=== PATIENT | male | born 1965 | race Caucasian/White ===

== ENCOUNTER 2020-11-21 09:20 | Outpatient (REF) | payer MEDICAID, SELFPAY ==
--- NOTE | ~2020-11-21 | CT_ITS ---
EXAMINATION: CT CHEST WITHOUT CONTRAST CLINICAL INFORMATION: Smoking history. Follow-up pulmonary nodules. COMPARISON: Previous chest CT September 2018 TECHNIQUE: Multidetector volumetric CT imaging of the chest was done. Axial MIP volume rendering provided. Sagittal and coronal reformatted images were obtained. This CT examination was performed using dose optimization techniques as appropriate, variously including the following: *Automated exposure control *Adjustment of mA and/or kV according to patient size (this includes techniques or standardized protocols for targeted exams where dose is matched to indication/reason for exam; i.e. extremities or head) *Use of iterative reconstruction technique DLP: 175 mGy-cm FINDINGS: LUNGS: The small bilateral pulmonary nodules are stable. Largest pulmonary nodule is a 5 mm noncalcified left lower lobe nodule axial image 397 series 7. No new pulmonary nodule is seen. There is linear scarring or subsegmental atelectasis of the right lung base. The lungs are otherwise clear. No endobronchial or endotracheal lesion is seen. MEDIASTINUM: There are small calcified left hilar lymph nodes. There are small noncalcified mediastinal lymph nodes. These are unchanged. No enlarged lymph nodes are seen. There is a minimal coronary artery calcification. The mediastinum is otherwise normal. PLEURA: There is no pleural effusion. No pleural mass or thickening. AXILLA: No lymphadenopathy. UPPER ABDOMEN: There is a small calcification in the right lobe of the liver unchanged from previous exam probably related to old granulomatous disease. Images through the upper abdomen are otherwise unremarkable. OSSEOUS STRUCTURES: There are degenerative changes of the spine. CT/CT chest wo con IMPRESSION: Stable small calcified and noncalcified pulmonary nodules probably related to old granulomatous disease.
== END 2020-11-21 09:21 | disposition home or self-care (01) ==
LOC: HO.CT 09:20
PROVIDERS: PCP Registered Nurse; Visit Provider Registered Nurse
DX: R91.1 Solitary pulmonary nodule (principal); F17.210 Nicotine dependence, cigarettes, uncomplicated
CPT/HCPCS: 71250

== ENCOUNTER → 2021-05-16 10:03 | Outpatient (BNVA) | payer MEDICAID, SELFPAY | PROVIDERS: PCP Registered Nurse; Visit Provider Internal Medicine Pulmonary Disease | DX: R91.8 Other nonspecific abnormal finding of lung field (principal); F17.210 Nicotine dependence, cigarettes, uncomplicated | CPT/HCPCS: 99212 ==

== ENCOUNTER 2021-05-31 12:57 | Outpatient (REF) | payer MEDICAID, SELFPAY ==
--- NOTE | ~2021-05-31 | US_ITS ---
EXAMINATION: US RETROPERITONEAL LIMITED (RENAL ONLY) CLINICAL INFORMATION: Cyst of kidney. COMPARISON: Ultrasound kidneys and bladder 03/26/2019. TECHNIQUE: Real-time imaging of the kidneys. FINDINGS: RIGHT KIDNEY: 14.1 x 5.2 x 5.9 cm (SAG x AP x TRV). The kidney is normal in size, contour, and echogenicity. Renal cortical thickness is normal. There are 2 small right cysts measuring 6 x 5 x 5 mm in the upper pole and 4 x 4 by 3 mm in the midpole. These were not appreciated on prior ultrasound from 2019. No renal calculi or hydronephrosis. LEFT KIDNEY: 13.8 x 6.3 x 6.0 cm (SAG x AP x TRV). The kidney is normal in size, contour, and echogenicity. Renal cortical thickness is normal. There is a 1 x 1 x 0.7 cm cyst in the upper pole that does not appear changed. No renal calculi or hydronephrosis. US/US renal BI IMPRESSION: Small bilateral renal cysts. No imaging follow-up is indicated.
== END 2021-05-31 12:58 | disposition home or self-care (01) ==
LOC: HO.HMGCX 12:57
PROVIDERS: Visit Provider Internal Medicine Geriatric Medicine
DX: N28.1 Cyst of kidney, acquired (principal)
CPT/HCPCS: 76775

== ENCOUNTER 2022-05-21 10:55 | Outpatient (REF) | payer MEDICAID, SELFPAY ==
--- NOTE | 2022-05-21 13:31 | PFT_ITS ---
Forced vital capacity 86%, FEV1 84%. FEV1/FVC ratio is 77. [id number] 71% and MVV 86%. Post bronchodilator therapy, there is a slight improvement in [id number]. Total lung capacity 95%. Residual volume 116%. Diffusion capacity 69%. CONCLUSION: Grossly normal pulmonary function test, but there is possibility of a minimal small airway obstructive disorder with improvement after bronchodilator therapy. This requires clinical correlation. MD JAM Howard/ZAIRE / [id number]
== END 2022-05-21 10:56 | disposition home or self-care (01) ==
LOC: HO.RESP 10:55
PROVIDERS: PCP Internal Medicine Geriatric Medicine; Visit Provider Internal Medicine Pulmonary Disease
DX: F17.200 Nicotine dependence, unspecified, uncomplicated (principal)
CPT/HCPCS: 94060; 94727; 94729

== ENCOUNTER → 2022-05-28 11:40 | Outpatient (BNVA) | payer MEDICAID, SELFPAY | PROVIDERS: PCP Internal Medicine Geriatric Medicine; Visit Provider Internal Medicine Pulmonary Disease | DX: J43.9 Emphysema, unspecified (principal); F17.200 Nicotine dependence, unspecified, uncomplicated | CPT/HCPCS: 99212 ==

== ENCOUNTER 2023-03-21 08:18 | Outpatient (REF) | payer MEDICAID, SELFPAY ==
[2023-03-21 11:17] LABS: MANUAL DIFF FLAG NO
[2023-03-21 11:46] LABS: Basophils Absolute Auto 0.1 X10*3/uL (0.0-0.2); Basophils Percent Auto 0.7 % (0-2); Eosinophils Absolute Auto 0.4 X10*3/uL (0.0-0.4); Eosinophils Percent Auto 5.9 % (0-4); Hematocrit 41.3 % (42.0-52.0); Hemoglobin 14.2 g/dl (14.0-18.0); Imm Gran Abs Auto 0.03 X10*3/uL (0.00-0.03); Imm Gran Pct Auto 0.4 % (0.0-0.4); Lymphocytes Absolute Auto 2.1 X10*3/uL (1.2-4.9); Lymphocytes Percent Auto 28.1 % (20-40); Mean Corpuscular HGB Conc 34.4 g/dl (31.0-36.0); Mean Corpuscular Hemoglobin 30.5 pg (27.0-33.0); Mean Corpuscular Volume 88.6 fL (80.0-98.0); Mean Platelet Volume 9.9 fL (9.4-12.4); Monocytes Absolute Auto 0.4 X10*3/uL (0.1-1.2); Monocytes Percent Auto 5.3 % (2-11); Neutrophils Absolute Auto 4.4 x10*3/uL (2.0-8.3); Neutrophils Percent Auto 59.6 % (45-73); Platelet Count 310 X10*3/uL (160-400); Red Blood Count 4.66 X10*6/uL (4.60-5.80); White Blood Count 7.3 X10*3/uL (4.8-10.8)
[2023-03-21 12:02] LABS: Alanine Aminotransferase 29 U/L (0-40); Albumin Level 4.7 g/dL (3.5-5.0); Alkaline Phosphatase 64 U/L (39-117); Anion Gap 11 (12-20); Aspartate Amino Transferase 21 U/L (5-37); Bilirubin Total 0.5 mg/dL (0.0-1.0); Blood Urea Nitrogen 13 mg/dL (9-16); Calcium 10.2 mg/dL (8.4-10.2); Carbon Dioxide 29 mmol/L (22-29); Chloride 105 mmol/L (96-108); Cholesterol 110 mg/dL (<200); Estimated Glomerular Filt Rate > 60; Glucose Random 114 mg/dL (60-115); HDL Cholesterol 32 mg/dL (>40); LDL Cholesterol Calculated 57 mg/dL (<100); Potassium 4.6 mmol/L (3.3-5.1); Sodium 140 mmol/L (135-145); Total Protein 7.8 g/dL (6.5-8.0); Triglycerides 107 mg/dL (<150)
[2023-03-21 13:08] LABS: Creatinine Urine 116.54 mg/dL
== END 2023-03-21 08:19 | disposition home or self-care (01) ==
LOC: HO.HHCL 08:18
PROVIDERS: Visit Provider Internal Medicine Geriatric Medicine
DX: Z00.00 Encounter for general adult medical examination without abnormal findings (principal); E11.9 Type 2 diabetes mellitus without complications; Z79.899 Other long term (current) drug therapy
CPT/HCPCS: 36415; 80053; 80061; 82043; 85025

== ENCOUNTER 2023-04-16 10:48 | Outpatient (AMB) | payer MEDICAID, SELFPAY ==
--- NOTE | 2023-04-16 11:22 | MHC.OFFVIS ---
Intake Vital Signs 04/16/23 11:24 Height 6 ft 2 in Weight 189 lb 9.561 oz BMI 24.3 BP 132/67 Blood Pressure Location Lt brachial Position Sitting Pulse 64 Intake Visit Reasons: [place] screening Intake Note: Francisco presents in the office as a colonoscopy screening. CC: He states that he has never had a colonoscopy and is not having any concerns. Maternal Grandfather had HX of Colon cancer. Allergies No Known Allergies Allergy (Verified 04/16/23 11:24) HPI [place] screening HPI Details 58 year old? male with past medical history of diabetes, hypertension, hyperlipidemia, nicotine dependence is here today for pre colonoscopy screening.? Patient was sent to us by his PCP.? This is his first colonoscopy screening.? Patient denies any gastrointestinal symptoms in the past or at present.? However patient does report that he does not empty his bowels completely and is constipated. Postprandial abdominal bloating occasionally. Denies any personal or family history of gastrointestinal disease. Maternal grandfather was diagnosed with colon cancer. Patient's sisters had colonoscopy so and were diagnosed with polyps.? Denies history of difficulty with sedation or anesthesia in the past.? Negative for history of sleep apnea.? Denies any history of cardiac, renal, pulmonary, or hepatic disease.?? No history of infectious? diseases like hepatitis A, B, C, HIV or tuberculosis.? Patient is on low-dose aspirin [facility] Medical History DM2 (diabetes mellitus, type 2) HLD (hyperlipidemia) HTN (hypertension) Nicotine dependence, cigarettes, uncomplicated Family History (Updated 04/16/23 @ 11:25 by DUSTY Romero) Maternal Grandfather Colon cancer Review of Systems Const Denies weight gain and Denies weight loss ENT Reports no additional complaints, Denies dysphagia and Denies odynophagia Card Reports no additional complaints Resp Reports no additional complaints GI Denies abdominal pain, Denies belching, Denies melena, Reports bloating, Denies change in bowel habits, Reports constipation, Denies dysphagia, Denies excessive flatus, Denies dyspepsia, Denies heartburn, Denies diarrhea, Denies loose stools, Denies nausea, Denies odynophagia and Denies vomiting Reports no additional complaints Musc Reports no additional complaints Neuro Reports no additional complaints Psych Reports no additional complaints Endo Reports no additional complaints Physical Exam Vital Signs: Last Vital Signs Pulse 64 04/16/23 11:24 BP 132/67 04/16/23 11:24 BMI result Body Mass Index 24.3 Const General: healthy appearing, no acute distress and well developed Nutritional Appearance: well nourished Orientation/consciousness: patient oriented x3 HEENT Head: Yes normal to inspection, Yes normocephalic and Yes atraumatic Face and sinus: Yes normal facial exam Mouth: Normal oral and palatal mucosa present Throat: Yes posterior oropharynx normal, Yes tonsils normal and Yes uvula midline Eyes General: appearance normal, both eyes and all related structures Neck Neck: Yes normal visual inspection, Yes full ROM and Yes trachea midline Thyroid: Thyroid normal Resp Effort & Inspection: normal respiratory effort, able to speak in complete sentences, no tracheal deviation and symmetric chest movement Auscultation: clear to auscultation bilaterally Cardio Rate: regular rate Heart sounds: S1 normal heart sound present and S2 normal heart sound present GI Inspection: Yes normal to inspection and No distended Palpation (GI): Soft to palpation, not firm, nontender and No hepatosplenomegaly present Auscultation: normal bowel sounds General: Yes no CVA tenderness Back/Spine/Pelvis Back: no CVA tenderness Skin General skin exam: elasticity normal, turgor normal and dry skin Neuro General: patient oriented x3 Psych Appearance: grossly normal Mental Status: mental status grossly normal Assessment & Plan Assessment & Plan (1) Constipation: Code(s): K59.00 - Constipation, unspecified Qualifiers: Constipation type: slow transit constipation Qualified Code(s): K59.01 - Slow transit constipation Plan: Patient was encouraged to increase fluid intake and activity to promote better bowel motility. Patient can start taking MiraLax daily (2) Screen for colon cancer: Code(s): Z12.11 - Encounter for screening for malignant neoplasm of colon Plan: Patient denies any GI, cardiac or respiratory symptoms.? Reports occasional constipation and abdominal bloating. Will start patient on MiraLax. Denies any issues with anesthesia in the past.? Denies any history of sleep apnea.? No history infectious diseases in the past or present.? Patient is on low-dose aspirin..? No family or personal history of colon cancer or polyps.? Patient denies melena, hematochezia, unintentional weight loss or ribbon like stools.? I will see patient in 5 weeks to rediscuss colonoscopy. Patient is agreeable to plan of care and verbalizes understanding of instructions. He was given the opportunity to ask questions and all questions answered. Thank you for allowing me to participate in his care Medications: New polyethylene glycol 3350 (Miralax) 17 grams PO DAILY 510 grams 2RF Coding Level of Care Code New Pt Level 3 (79938) Diagnoses Slow transit constipation K59.01 Constipation type: slow transit constipation Screen for colon cancer Z12.11 Time Spent (min) 40 Comment 30 minutes spent with patient and additional 10 minutes spent reviewing his records
[2023-04-16 11:24] VITALS: BP 132/67; PULSE 64; BMI 24.3
== END 2023-04-16 11:49 | disposition home or self-care (01) ==
PROVIDERS: PCP Internal Medicine Geriatric Medicine; Visit Provider Nurse Practitioner Family
DX: K59.01 Slow transit constipation (principal); Z12.11 Encounter for screening for malignant neoplasm of colon
CPT/HCPCS: 99203

== ENCOUNTER → 2023-04-16 10:48 | Outpatient (BNVA) | payer MEDICAID, SELFPAY | PROVIDERS: PCP Internal Medicine Geriatric Medicine; Visit Provider Nurse Practitioner Family | DX: Z12.11 Encounter for screening for malignant neoplasm of colon (principal); K59.01 Slow transit constipation | CPT/HCPCS: 99212 ==

== ENCOUNTER 2023-05-23 11:32 | Outpatient (AMB) | payer MEDICAID, SELFPAY ==
[2023-05-23 11:43] VITALS: BP 122/67; PULSE 74; O2SAT 97; BMI 28.4
--- NOTE | 2023-05-23 11:43 | A.OFFVIS_ITS ---
Intake Vital Signs 05/23/23 11:43 Height 6 ft 2 in Weight 221 lb 9.033 oz BMI 28.4 BP 122/67 Blood Pressure Location Rt brachial Position Sitting Pulse 74 Pulse Source Doppler Pulse Oximetry (%) 97 Oxygen Delivery Method Room Air Intake Visit Reasons: pulm nodule Lockstitcher Required: Yes Lockstitcher Name: Nelsy Hauser Chel Accompanied by: Daughter Allergies No Known Allergies Allergy (Verified 05/23/23 11:45) HPI pulm nodule HPI Details 58-year-old gentleman, active 10 pack-ye ar smoker, previously followed for pulmonary nodules 4 mm and under noted on CT scan in June 2019. Patient denies any family history of lung cancer other pulmonary diseases.? He has had his follow-up CT chest that demonstrated 2 years stability of his underlying pulmonary nodules. Today patient complains of unrestful sleep, gasping for air, daytime somnolence, lower lobe NG. He is also concerned about recurrent chronic sinusitis. Otherwise, he denies pulmonary related concerns or complaints. [facility] Medical History DM2 (diabetes mellitus, type 2) HLD (hyperlipidemia) HTN (hypertension) Nicotine dependence, cigarettes, uncomplicated Family History (Updated 04/16/23 @ 11:25 by DUSTY Romero) Maternal Grandfather Colon cancer Social History (Updated 05/23/23 @ 11:46 by DUSTY Tracy) Patient Tobacco Use Status: Current someday Tobacco user Tobacco use type: Cigarette Cigarette Packs Per Day: 1 Years Smoked: 40+ Review of Systems Const Reports daytime sleepiness, Denies excessive sweating, Denies fatigue, Denies fever(s), Reports lethargy, Denies malaise, Denies night sweats, Reports snoring and Denies weight loss Eyes Denies blurry vision and Denies itchy eyes ENT Reports nasal congestion, Reports post nasal drip, Denies sinus pain, Denies sinus pressure and Denies other ( Thrush) Card Denies chest pain, Denies pedal edema, Denies dyspnea, Denies orthopnea and Denies paroxysmal nocturnal dyspnea Resp Denies cough, Denies hemoptysis, Denies excessive phlegm production, Denies dyspnea, Reports snoring and Denies wheezing GI Denies abdominal pain and Denies heartburn Musc Denies myalgias, Denies arthralgias and Denies joint swelling Skin/Breast Denies rash Neuro Denies memory loss and Denies seizure-like activity Psych Denies abnormal sleep pattern, Denies anxiety and Denies memory loss Endo Denies excessive sweating, Denies fatigue and Denies heat intolerance Domingo/Lymph Denies easy bruising Aller/Immun Denies itchy eyes, Denies seasonal rhinorrhea and Denies wheezing Physical Exam Vital Signs: Last Vital Signs Pulse 74 05/23/23 11:43 BP 122/67 05/23/23 11:43 Pulse Ox 97 05/23/23 11:43 Oxygen Delivery Method Room Air 05/23/23 11:43 BMI result Body Mass Index 28.4 Const General: no acute distress and alert Nutritional Appearance: not obese Orientation/consciousness: Other orientation findings ( oriented) HEENT Head: Yes atraumatic Eyes General: appearance normal, both eyes and all related structures Sclerae: sclerae normal EOM: EOMs intact bilaterally Neck Neck: Yes supple Lymphatic: no lymphadenopathy noted Resp Effort & Inspection: normal respiratory effort and no use of accessory muscles Auscultation: clear to auscultation bilaterally Cardio Rate: regular rate Rhythm: regular rhythm Heart sounds: no gallops, no murmurs and no rubs Skin General skin exam: other ( warm) Extrem General: No clubbing, No cyanosis and No edema Assessment & Plan Assessment & Plan (1) Emphysema of lung: Code(s): J43.9 - Emphysema, unspecified Plan: Essentially asymptomatic. Continue to monitor clinically. (2) SHARMAINE (obstructive sleep apnea): Code(s): G47.33 - Obstructive sleep apnea (adult) (pediatric) Plan: Unrestful sleep, daytime somnolence, observed waking up gasping for air. [place] Sleepiness Scale score of 15. Will obtain home sleep study. (3) Chronic sinusitis: Code(s): J32.9 - Chronic sinusitis, unspecified Plan: Appears to have deviated septum with recurrent chronic sinusitis. Will refer to ENT. (4) Nicotine dependence, cigarettes, uncomplicated: Comment: (Current smoker, onset 13yo, 1-2ppd x 44yrs, 50PYH ) Code(s): F17.210 - Nicotine dependence, cigarettes, uncomplicated Plan: Continue with lung cancer screening yearly. Orders: Orders RT home sleep study Today G47.33 - Obstructive sleep apnea (adult) (pediatric) Referrals Ear/Nose/Throat Referral J32.9 - Chronic sinusitis, unspecified Coding Level of Care Code Est Pt Level 4 (43923) Diagnoses Emphysema of lung J43.9 SHARMAINE (obstructive sleep apnea) G47.33 Chronic sinusitis J32.9 Nicotine dependence, cigarettes, uncomplicated F17.210
== END 2023-05-23 11:59 | disposition home or self-care (01) ==
PROVIDERS: PCP Internal Medicine Geriatric Medicine; Visit Provider Internal Medicine Pulmonary Disease
DX: J43.9 Emphysema, unspecified (principal); G47.33 Obstructive sleep apnea (adult) (pediatric); J32.9 Chronic sinusitis, unspecified; F17.210 Nicotine dependence, cigarettes, uncomplicated
CPT/HCPCS: 99214

== ENCOUNTER → 2023-05-23 11:32 | Outpatient (BNVA) | payer MEDICAID, SELFPAY | PROVIDERS: PCP Internal Medicine Geriatric Medicine; Visit Provider Internal Medicine Pulmonary Disease | DX: J43.9 Emphysema, unspecified (principal); J32.9 Chronic sinusitis, unspecified; G47.33 Obstructive sleep apnea (adult) (pediatric); F17.210 Nicotine dependence, cigarettes, uncomplicated | CPT/HCPCS: 99212 ==

== ENCOUNTER 2023-06-12 09:09 | Outpatient (AMB) | payer MEDICAID, SELFPAY ==
--- NOTE | 2023-06-12 09:19 | A.OFFVIS_ITS ---
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 Patient can start taking MiraLax daily Screen for colon cancer Patient denies any GI, cardiac or respiratory symptoms.? Reports occasional constipation and abdominal bloating. Will start patient on MiraLax. Denies any issues with anesthesia in the past.? Denies any history of sleep apnea.? No history infectious diseases in the past or present.? Patient is on low-dose aspirin.? Patient denies melena, hematochezia, unintentional weight loss or ribbon like stools.? I will see patient in 5 weeks to rediscuss colonoscopy. Patient is agreeable to plan of care and verbalizes understanding of shital borrero. He was given the opportunity to ask questions and all questions answered. TODAY'S VISIT Patient is here today for follow-up and to go over colonoscopy. Patient reports that he has been doing better now that he is moving his bowels without any issues. Seen restaurant assistant and is going to have sleep apnea studies on July 09. Patient denies any respiratory or cardiac symptoms. Patient reports to be feeling well. Denies any infectious diseases in the past or present. Patient denies melena, hematochezia, unintentional weight loss or ribbon like stools. Patient denies any dyspepsia, dysphagia or odynophagia. Family history of colorectal cancer, maternal grandmother diagnosed with colorectal cancer. Sister had polyps, unsure what kind.? [facility] History DM2 (diabetes mellitus, type 2) HLD (hyperlipidemia) HTN (hypertension) Nicotine dependence, cigarettes, uncomplicated Family History Maternal Grandfather Colon cancer Social History Patient Tobacco Use Status: Current someday Tobacco user Tobacco use type: Cigarette Cigarette Packs Per Day: 1 Years Smoked: 40+ Review of Systems Const Denies weight gain and Denies weight loss ENT Reports no additional complaints, Denies dysphagia and Denies odynophagia Card Reports no additional complaints Resp Reports no additional complaints GI Denies abdominal pain, Denies belching, Denies melena, Denies bloating, Denies change in bowel habits, Denies dysphagia, Denies excessive flatus, Denies dyspepsia, Denies heartburn, Denies diarrhea, Denies loose stools, Denies nausea, Denies odynophagia and Denies vomiting Reports no additional complaints Musc Reports no additional complaints Neuro Reports no additional complaints Psych Reports no additional complaints Endo Reports no additional complaints Physical Exam Vital Signs: Last Vital Signs Pulse 83 06/12/23 09:21 BP 148/79 H 06/12/23 09:21 BMI result Body Mass Index 28.5 Const General: healthy appearing, no acute distress and well developed Nutritional Appearance: well nourished Orientation/consciousness: patient oriented x3 HEENT Head: Yes normal to inspection, Yes normocephalic and Yes atraumatic Face and sinus: Yes normal facial exam Mouth: Normal oral and palatal mucosa present Throat: Yes posterior oropharynx normal, Yes tonsils normal and Yes uvula midline Eyes General: appearance normal, both eyes and all related structures Neck Neck: Yes normal visual inspection, Yes full ROM and Yes trachea midline Thyroid: Thyroid normal Resp Effort & Inspection: normal respiratory effort, able to speak in complete sentences, no tracheal deviation and symmetric chest movement Auscultation: clear to auscultation bilaterally Cardio Rate: regular rate Heart sounds: S1 normal heart sound present and S2 normal heart sound present GI Inspection: Yes normal to inspection and No distended Palpation (GI): Soft to palpation, not firm, nontender and No hepatosplenomegaly present Auscultation: normal bowel sounds General: Yes no CVA tenderness Back/Spine/Pelvis Back: no CVA tenderness Skin General skin exam: elasticity normal, turgor normal and dry skin Neuro General: patient oriented x3 Psych Appearance: grossly normal Mental Status: mental status grossly normal Assessment & Plan Assessment & Plan (1) Constipation: Code(s): K59.00 - Constipation, unspecified Qualifiers: Constipation type: slow transit constipation Qualified Code(s): K59.01 - Slow transit constipation (2) Screen for colon cancer: Code(s): Z12.11 - Encounter for screening for malignant neoplasm of colon Plan What to expect before during and after procedure discussed with patient. Patient has appointment for sleep study in June. Might need CPAP. Denies any cardiac or respiratory symptoms. The patient is on low-dose aspirin. The importance of good bowel prep discussed with patient. I will see patient after the procedure, sooner on as needed basis. Patient is agreeable to this plan and verbalizes understanding of instructions. He was given the opportunity to ask questions and all questions answered. Thank you for allowing me to participate in his care Medications: New polyethylene glycol 3350 (Miralax) As directed by gastro[facility]ology department at [facility] 238 grams PO ONCE 238 grams 0RF Z12.11 - Encounter for screening for malignant neoplasm of colon bisacodyl (Dulcolax (bisacodyl)) take 4 tabs at noon the day before your colonoscopy 20 mg (4 x 5 mg) PO ONCE 1 day 4 tabs 0RF Z12.11 - Encounter for screening for malignant neoplasm of colon Refilled polyethylene glycol 3350 (Miralax) 17 grams PO DAILY 510 grams 2RF Coding Level of Care Code Est Pt Level 3 (43233) Diagnoses Slow transit constipation K59.01 Constipation type: slow transit constipation Screen for colon cancer Z12.11 Time Spent (min) 30 Comment 20 minutes spent with patient and additional 10 minutes spent reviewing his records
[2023-06-12 09:21] VITALS: BP 148/79; PULSE 83; BMI 28.5
== END 2023-06-12 09:50 | disposition home or self-care (01) ==
PROVIDERS: PCP Internal Medicine Geriatric Medicine; Visit Provider Nurse Practitioner Family
DX: K59.01 Slow transit constipation (principal); Z12.11 Encounter for screening for malignant neoplasm of colon
CPT/HCPCS: 99213

== ENCOUNTER → 2023-06-12 09:09 | Outpatient (BNVA) | payer MEDICAID, SELFPAY | PROVIDERS: PCP Internal Medicine Geriatric Medicine; Visit Provider Nurse Practitioner Family | DX: Z12.11 Encounter for screening for malignant neoplasm of colon (principal); K59.01 Slow transit constipation | CPT/HCPCS: 99212 ==

== ENCOUNTER → 2023-09-17 09:56 | Outpatient (REF) | payer MEDICAID, SELFPAY | LOC: HO.SL 09:56 | PROVIDERS: PCP Internal Medicine Geriatric Medicine; Visit Provider Internal Medicine Pulmonary Disease | DX: G47.33 Obstructive sleep apnea (adult) (pediatric) (principal) | CPT/HCPCS: 95806 ==

== ENCOUNTER → 2023-09-17 10:08 | Outpatient (BNV) | payer MEDICAID, SELFPAY | PROVIDERS: PCP Internal Medicine Geriatric Medicine; Visit Provider Internal Medicine | DX: G47.33 Obstructive sleep apnea (adult) (pediatric) (principal) | CPT/HCPCS: 95806 ==

== ENCOUNTER 2023-09-23 09:17 | Outpatient (REF) | payer MEDICAID, SELFPAY ==
[2023-09-23 11:30] LABS: Appearance Urine Clear; Color Urine Yellow; Glucose Urine UA Negative (Negative); Leukocyte Esterase Urine Negative (Negative); Nitrite Urine Negative (Negative); PH 6.5 (5.0-9.0); Specific Gravity - Urine 1.015 (1.005-1.025); Urine Blood Negative (Negative); Urine Ketones Negative (Negative); Urine Protein Negative (Neg-Trace)
[2023-09-23 11:36] LABS: Bacteria Urine None Seen (None Seen); Hyaline Casts Urine 0-2 /LPF (0-2); RBC Urine 0-2 /HPF (0-2); Squamous Epithelial Cell Urine 0-2 /HPF (0-2); WBC Urine 0-5 /HPF (0-5)
[2023-09-23 13:10] LABS: Prostate Specific Antigen 0.45 ng/mL (<0.05-4.0)
== END 2023-09-23 09:18 | disposition home or self-care (01) ==
LOC: HO.HHCL 09:17
PROVIDERS: Visit Provider Internal Medicine Geriatric Medicine
DX: N40.0 Benign prostatic hyperplasia without lower urinary tract symptoms (principal); F17.210 Nicotine dependence, cigarettes, uncomplicated
CPT/HCPCS: 36415; 81001; 84153

== ENCOUNTER 2023-09-23 12:41 | Outpatient (REF) | payer MEDICAID, SELFPAY ==
--- NOTE | ~2023-09-23 | CT_ITS ---
EXAMINATION: CT CHEST SCREENING CLINICAL INFORMATION: Smoker with 45 pack year history COMPARISON: Previous CTs, most recent, 11/21/2020 TECHNIQUE: Multidetector volumetric CT imaging of the chest is performed without contrast using low dose technique. Additional 2D coronal and sagittal reformatted images and axial 3D maximum intensity projection (MIP) images are generated on the CT workstation. This CT examination was performed using dose optimization techniques as appropriate, variously including the following: *Automated exposure control *Adjustment of mA and/or kV according to patient size (this includes techniques or standardized protocols for targeted exams where dose is matched to indication/reason for exam; i.e. extremities or head) *Use of iterative reconstruction technique DLP: 56 mGy-cm FINDINGS: VISION MIXER: No acute cardiopulmonary disease. LUNGS: Trachea and bronchi are patent. Right middle, lingular and bilateral lower lobe platelike atelectasis. Left lower lobe granulomas. Stable 5 mm noncalcified LLL nodule, 6:323. No new pulmonary nodules. MEDIASTINUM: Unremarkable thyroid. Small hiatal hernia. Dilated thoracic esophagus. Nonspecific mediastinal lymph nodes again seen. Calcified left hilar lymph node is unchanged. No pathologic lymphadenopathy. Nonenlarged heart. No pericardial effusion. Nonaneurysmal aorta with atherosclerotic calcifications. Nonenlarged pulmonary arteries. CORONARY ARTERY CALCIFICATION: Mild. PLEURA: There is no pleural effusion. No pleural mass or thickening. AXILLA: Axillary lymph nodes are less prominent than on previous study. UPPER ABDOMEN: Right hepatic calcification again seen. Significant gastric distention, stomach filled with debris. OSSEOUS AND SOFT TISSUE STRUCTURES: Mild gynecomastia again noted. CT/CT lung screening IMPRESSION: Stable 5 mm left lower lobe pulmonary nodule. No new or enlarging pulmonary nodules. Evidence of previous granulomatous disease. ASSESSMENT: Lung-RADS category 2: Benign RECOMMENDATION: Routine annual low-dose CT screening in 12 months.
== END 2023-09-23 12:42 | disposition home or self-care (01) ==
LOC: HO.CT 12:41
PROVIDERS: PCP Internal Medicine Geriatric Medicine; Visit Provider Physician Assistant Medical
DX: R91.1 Solitary pulmonary nodule (principal); F17.210 Nicotine dependence, cigarettes, uncomplicated
CPT/HCPCS: 71271

== ENCOUNTER 2023-09-26 12:14 | Day surgery (SDC) | payer MEDICAID, SELFPAY ==
[2023-09-24 14:25] VITALS: BMI 28.5
--- NOTE | 2023-09-25 10:54 | HO.ANESPROP2 ---
Documented by User: Nicky Jones NP 09/25/23 10:54 HPI - Anesthesia Eval Consult details Narrative: 58yo M for Colonoscopy PMFSH Active Problems Active Problems: All Active Problems (Updated 05/23/23 @ 12:07 by Harinder Lovell MD) Chronic sinusitis (Acute) SHARMAINE (obstructive sleep apnea) (Acute) Nicotine dependence, cigarettes, uncomplicated (Acute) Emphysema of lung (Acute) Pulmonary nodules (Acute) Past Medical History Medical History DM2 (diabetes mellitus, type 2) HLD (hyperlipidemia) HTN (hypertension) Nicotine dependence, cigarettes, uncomplicated Family History Family History Maternal Grandfather Colon cancer Surgical History Surgical History History of rectal surgery Social History Social History Patient Tobacco Use Status: Former Tobacco user Tobacco use type: Cigarette Cigarette Packs Per Day: 1 Years Smoked: 40+ Are you DNR?: No Advance Directives: No Advance Directives Information Provided: Yes Nutrition Risks: No Nutritional Risk Meds Allergies Allergy/AdvReac Type Severity Reaction Status Date / Time No Known Allergies Allergy Verified 06/12/23 09:18 Home Medications Medication Instructions Recorded Confirmed Last Taken Type aspirin 81 mg tablet,delayed 81 mg PO DAILY 05/16/21 09/23/23 History release atorvastatin 40 mg tablet 40 mg PO DAILY 05/16/21 Unknown History fluticasone propionate 50 1 spray intranasal DAILY 05/16/21 Unknown History mcg/actuation nasal spray,suspension (Flonase Allergy Relief) metformin 1,000 mg tablet 1,000 mg PO DAILY 05/16/21 Unknown History blood sugar diagnostic (FreeStyle #10 ea 04/16/23 Unknown History Lite Strips) lisinopril 10 mg tablet 10 mg PO DAILY 04/16/23 09/26/23 History Exam Height,Weight and Vital Signs: Height 6 ft 2 in Weight 100.698 kg Assessment and Plan Assessment Anesthesia Assessment: Chart Reviewed Documented by User: Nikkie Rivas MD 09/26/23 14:06 [facility] Active Problems Active Problems: All Active Problems (Updated 09/26/23 @ 13:33 by Nikkie Rivas MD) Chronic sinusitis (Acute) SHARMAINE (obstructive sleep apnea) (Acute)- Mild SHARMAINE. Just positioning recommended Nicotine dependence, cigarettes, uncomplicated (Acute) Emphysema of lung (Acute) Pulmonary nodules (Acute) DM Type 2 - BS 86. Patient symptomatic. Treated with D5W. Feels better Past Medical History Medical History DM2 (diabetes mellitus, type 2) HLD (hyperlipidemia) HTN (hypertension) Nicotine dependence, cigarettes, uncomplicated Family History Family History Maternal Grandfather Colon cancer Family history of problems with anesthesia: No Surgical History Surgical History History of rectal surgery History of Problems with Anesthesia: No Social History Social History Patient Tobacco Use Status: Former Tobacco user Tobacco use type: Cigarette Cigarette Packs Per Day: 1 Years Smoked: 40+ Are you DNR?: No Advance Directives: No Advance Directives Information Provided: Yes Nutrition Risks: No Nutritional Risk Meds Allergies Allergy/AdvReac Type Severity Reaction Status Date / Time No Known Allergies Allergy Verified 06/12/23 09:18 Home Medications Medication Instructions Recorded Confirmed Last Taken Type aspirin 81 mg tablet,delayed 81 mg PO DAILY 05/16/21 09/23/23 History release atorvastatin 40 mg tablet 40 mg PO DAILY 05/16/21 Unknown History fluticasone propionate 50 1 spray intranasal DAILY 05/16/21 Unknown History mcg/actuation nasal spray,suspension (Flonase Allergy Relief) metformin 1,000 mg tablet 1,000 mg PO DAILY 05/16/21 Unknown History blood sugar diagnostic (Konradyle #10 ea 04/16/23 Unknown History Lite Strips) lisinopril 10 mg tablet 10 mg PO DAILY 04/16/23 09/26/23 History Exam Height,Weight and Vital Signs: Height 6 ft 2 in Weight 100.698 kg Vital Signs Temp Pulse Resp BP Pulse Ox O2 Del Method 09/26/23 12:19 98.3 F 63 20 160/82 H 99 Room Air Pertinent Lab Results Pertinent Lab Results: Lab Results 09/26/23 Range/Units 12:28 POC Glucose 86 (60-115) mg/dL Airway Mallampati Class: II TM Dist: >3cm Neck ROM: Full Loose/Missing/Broken Teeth: No Heart: RRR Lungs: CTAB Assessment and Plan Assessment Anesthesia Assessment: Anesthesia Plan Discussed and Chart Reviewed Final Anesthetic Review Family History of Problems with Anesthesia: No History of Problems with Anesthesia: No NPO: Yes ASA Class: III Final Preanesthetic Review: No Changes in Pt Med Stat, Meds/Allgs Chart Reviewed, Consent Obtained/Reviewed and Anes Risks/Benef Reviewed Patient Risk: Intermediate Procedure Risk: Low Assessment/Block/Sedation in SS: Assess/Block/Sedation-SS Anesthetic Plan Anesthetic Plan: MAC: and TIVA Disposition: Standard PACU
[2023-09-26 12:19] VITALS: BP 160/82; PULSE 63; RESP 20; TEMP 36.8; O2SAT 99; BMI 28.4
[2023-09-26] MEDS: Dextrose 5 % 100 ML IV (12:30)
[2023-09-26 12:37] LABS: Glucose, Whole Blood 86 mg/dL (60-115)
--- NOTE | 2023-09-26 13:04 | PC.NURSE ---
patient sts regular bs is usually 120-130 checked bs at 1230 was 83 pt feeling dizzy anesthesia aware give 100ml d5w. vss and patient sts feeling no dizziness at this time will continue to monitor patient pt aware neuros intact
[2023-09-26] MEDS: Lactated Ringers 1,000 ML 100 ML IVCONT (13:07)
--- NOTE | 2023-09-26 13:08 | MHC.SHP ---
Pre-Procedural Eval Section A - 24 Hr Update-Section A only Date of Service: 09/26/23 Section B - Complete if H&P > 30 days Chief Complaint: screening Relevant Family History (Specify if Yes): No Relevant Social History: None Present Medications: see Short Stay Collaborative assessment Medical History: Significant History ( DM2 (diabetes mellitus, type 2) HLD (hyperlipidemia) HTN (hypertension) Nicotine dependence, cigarettes, uncomplicated) History of Previous Operations: Relevant previous surgery/procedure and date(s) (rectal surgery) Allergies: Allergies Allergy/AdvReac Type Severity Reaction Status Date / Time No Known Allergies Allergy Verified 06/12/23 09:18 Review of Systems Sugical H&P ROS: Negative: Constitution, Cardiovascular, Respiratory, Neurological, Psychiatric, Hem-Onc, Allergic/Immunologic, Gastrointestinal, Genitourinary, Musculoskeletal, Integumentary, Endocrine and Eyes/Ears/Nose/Throat Exam Surgical H&P Exam: Normal: HEENT, Normal: Heart, Normal: Lungs, Normal: Extremities, Normal: Abdomen, Normal: Skin and Normal: Neurological Plan Diagnosis/Plan: Unchanged I have reviewed the history and physical and performed a pertinent physical examination on my patient. No changes have occurred unless specified. Time Spent With Patient Time: Total time managing care of this patient today ____ minutes.
--- NOTE | 2023-09-26 14:16 | P.OP_ITS ---
Operative Note Operative Note Date of Service: 09/26/23 Narrative: Operative Note Date of Service: 09/26/23 Narrative: Operative Information Procedure Description: Colonoscopy Indication: screening Anesthesia: MAC COLONOSCOPY Instrument: Olympus variable stiffness pediatric scope 190L Colonoscopy Monitoring: Vital signs and clinical assessment, continuous EKG monitoring, Pulse oximetry, Carbon Dioxide monitoring and blood pressure monitoring were done throughout the procedure. Colon withdrawal time was 11 minutes. Procedure: The patient was placed in the left lateral decubitis position and pre-procedure medications were administered. After a digital rectal examination of the ano-rectum, the video colonoscope was inserted into the rectum and advanced through the colon to the cecum/TI. The colonoscope was slowly withdrawn in a retrograde panoramic fashion and the colon mucosa was carefully examined including a retroflexed view of the rectum. Findings and interventions are described below. Procedure Difficulty: easy Findings: Terminal Ileum-normal Cecum: normal Right sided retroflexion- normal Ascending Colon: normal Transverse Colon -normal Descending Colon:normal Sigmoid Colon: x2 sessile polyps in distal sigmoid 8-9 mm removed with cold snare Rectum: Retroflexion with medium sized internal hemorrhoids, grade I, Anorectum - normal Colon preparation: [place] Bowel Preparation Scale Right colon; 2 Transverse colon: 3 Left colon; 1-2 (0 = Unprepared colon segment with mucosa not seen due to solid stool that cannot be cleared. 1 = Portion of mucosa of the colon segment seen, but other areas of the colon segment not well seen due to staining, residual stool and/or opaque liquid. 2 = Minor amount of residual staining, small fragments of stool and/or opaque liquid, but mucosa of colon segment seen well. 3 = Entire mucosa of colon segment seen well with no residual staining, small fragments of stool or opaque liquid) Impression and Post Procedure Diagnosis: polyps internal hemorrhoids Plan: High fiber diet leaflet Avoid straining at stool, epsom salts and sitz bath, anusol supps or cream Repeat Colonoscopy in 5 years due to fair prep left side or earlier if clinically indicated Above findings were reviewed with the patient and relevant handouts were provided if indicated.
[2023-09-26 14:23] VITALS: BP 90/61; PULSE 66; RESP 16; TEMP 36.1; O2SAT 97
[2023-09-26 14:38] VITALS: BP 100/61; PULSE 59; RESP 16; O2SAT 98
[2023-09-26 14:53] VITALS: BP 120/72; PULSE 58; RESP 16; TEMP 36.2; O2SAT 98
== END 2023-09-26 15:56 | disposition home or self-care (01) ==
PROVIDERS: PCP Internal Medicine Geriatric Medicine; Visit Provider Internal Medicine Gastroenterology
PROC: 0DJD8ZZ Inspection of Lower Intestinal Tract, Via Natural or Artificial Opening Endoscopic (ICD-10-PCS; CPT 45378; principal; 2023-09-26 14:10)
DX: Z12.11 Encounter for screening for malignant neoplasm of colon (principal); K63.5 Polyp of colon; K64.0 First degree hemorrhoids; E11.9 Type 2 diabetes mellitus without complications; I10 Essential (primary) hypertension; E78.5 Hyperlipidemia, unspecified; G47.33 Obstructive sleep apnea (adult) (pediatric); F17.210 Nicotine dependence, cigarettes, uncomplicated; Z79.02 Long term (current) use of antithrombotics/antiplatelets; Z79.84 Long term (current) use of oral hypoglycemic drugs; Z79.82 Long term (current) use of aspirin
CPT/HCPCS: 45385; 82947; 88305; J2704

== ENCOUNTER → 2023-09-26 12:14 | Outpatient (BNV) | payer MEDICAID, SELFPAY | PROVIDERS: PCP Internal Medicine Geriatric Medicine; Visit Provider Internal Medicine Gastroenterology | DX: Z12.11 Encounter for screening for malignant neoplasm of colon (principal); K63.5 Polyp of colon; K64.0 First degree hemorrhoids | CPT/HCPCS: 45385 ==

== ENCOUNTER 2023-10-11 13:58 | Outpatient (AMB) | payer MEDICAID, SELFPAY ==
--- NOTE | 2023-10-11 14:02 | MHC.OFFVIS ---
Intake Vital Signs 10/11/23 14:10 Height 6 ft 2 in Weight 215 lb BMI 27.6 BP 133/63 Blood Pressure Location Lt brachial Position Sitting Pulse 84 Intake Visit Reasons: S/p colon Intake Note: Patient follow up for Colonoscopy Patient denies any GI issues. Traveling Storekeeper Required: No Accompanied by: Family/Other Allergies No Known Allergies Allergy (Verified 10/11/23 14:02) HPI S/p colon HPI Details LAST VISIT Constipation Screen for colon cancer Plan What to expect before during and after procedure discussed with patient. Patient has appointment for sleep study in June. Might need CPAP. Denies any cardiac or respiratory symptoms. The patient is on low-dose aspirin. The importance of good bowel prep discussed with patient. I will see patient after the procedure, sooner on as needed basis. Patient is agreeable to this plan and verbalizes understanding of instructions. He was given the opportunity to ask questions and all questions answered. ? Thank you for allowing me to participate in his care Medications New polyethylene glycol 3350 (Miralax) As directed by gastroenterology department at [facility] 238 grams PO ONCE 238 grams 0RF Z12.11 bisacodyl (Dulcolax (bisacodyl)) take 4 tabs at noon the day before your colonoscopy 20 mg (4 x 5 mg) PO ONCE 1 day 4 tabs 0RF Z12.11 Refilled polyethylene glycol 3350 (Miralax) 17 grams PO DAILY 510 grams 2RF COLONOSCOPY Findings: Terminal Ileum-normal Cecum: normal Right sided retroflexion- normal Ascending Colon: normal Transverse Colon -normal Descending Colon:normal Sigmoid Colon: x2 sessile polyps in distal sigmoid 8-9 mm removed with cold snare Rectum: Retroflexion with medium sized internal hemorrhoids, grade I, Anorectum - normal Colon preparation: [place] Bowel Preparation Scale Right colon; 2 Transverse colon: 3 Left colon; 1-2 (0 = Unprepared colon segment with mucosa not seen due to solid stool that cannot be cleared. 1 = Portion of mucosa of the colon segment seen, but other areas of the colon segment not well seen due to staining, residual stool and/or opaque liquid. 2 = Minor amount of residual staining, small fragments of stool and/or opaque liquid, but mucosa of colon segment seen well. 3 = Entire mucosa of colon segment seen well with no residual staining, small fragments of stool or opaque liquid) Impression and Post Procedure Diagnosis: polyps internal hemorrhoids Plan: High fiber diet leaflet Avoid straining at stool, epsom salts and sitz bath, anusol supps or cream Repeat Colonoscopy in 5 years due to fair prep left side or earlier if clinically indicated PATHOLOGY RESULTS Diagnosis Colon, sigmoid, polyps: Hyperplastic polyp (1 piece) and colonic mucosa with minor hyperplastic changes (2 pieces); no adenomatous dysplasia seen. TODAY'S VISIT Patient is here today for follow-up and to discuss colonoscopy results. Patient denies any ill effects from the prep, anesthesia or procedure itself. Patient reports that he has been feeling well, denies any abdominal pain or discomfort. Reports that he is going to the bathroom fine without any issues. Patient denies any melena, hematochezia, unintentional weight loss or ribbon like stools. Patient denies any dyspepsia, dysphagia or odynophagia. Colonoscopy results discussed with patient. Patient had suboptimal prep to left side of his colon and will need to repeat colonoscopy in 5 years. [facility] Medical History DM2 (diabetes mellitus, type 2) HLD (hyperlipidemia) HTN (hypertension) Nicotine dependence, cigarettes, uncomplicated Surgical History Hx of colonoscopy History of rectal surgery Family History Maternal Grandfather Colon cancer Social History Patient Tobacco Use Status: Former Tobacco user Tobacco use type: Cigarette Cigarette Packs Per Day: 1 Years Smoked: 40+ Physical Exam Vital Signs: Last Vital Signs Pulse 84 10/11/23 14:10 BP 133/63 10/11/23 14:10 BMI result Body Mass Index 27.6 Assessment & Plan Assessment & Plan (1) Constipation: Code(s): K59.00 - Constipation, unspecified Qualifiers: Constipation type: slow transit constipation Qualified Code(s): K59.01 - Slow transit constipation (2) Status post colonoscopy: Code(s): Z98.890 - Other specified postprocedural states Plan Patient will return for colorectal screening in 5 years, sooner if clinically necessary. Continue high-fiber diet. Patient was encouraged to increase fluid intake and activity to promote better bowel motility. He will follow-up in our office on as needed basis. Patient is agreeable to this plan and verbalizes understanding of instructions. He was given the opportunity to ask questions and all questions answered. Thank you for allowing me to participate in his care Coding Level of Care Code Est Pt Level 3 (69453) Diagnoses Slow transit constipation K59.01 Constipation type: slow transit constipation Status post colonoscopy Z98.890 Time Spent (min) 25 Comment 15 minutes spent with patient and additional 10 minutes spent reviewing his records
[2023-10-11 14:10] VITALS: BP 133/63; PULSE 84; BMI 27.6
== END 2023-10-11 14:45 | disposition home or self-care (01) ==
PROVIDERS: PCP Internal Medicine Geriatric Medicine; Visit Provider Nurse Practitioner Family
DX: K59.01 Slow transit constipation (principal); Z98.890 Other specified postprocedural states
CPT/HCPCS: 99213

== ENCOUNTER → 2023-10-11 13:58 | Outpatient (BNVA) | payer MEDICAID, SELFPAY | PROVIDERS: PCP Internal Medicine Geriatric Medicine; Visit Provider Nurse Practitioner Family | DX: K59.01 Slow transit constipation (principal); Z98.890 Other specified postprocedural states | CPT/HCPCS: 99212 ==

== ENCOUNTER 2023-10-16 10:26 | Outpatient (REF) | payer MEDICAID, SELFPAY ==
[2023-10-16 12:55] LABS: HIV AB/AG Nonreactive (Nonreactive); HIV Num 1 0.04 S/CO (0.00-0.99)
== END 2023-10-16 10:27 | disposition home or self-care (01) ==
LOC: HO.HHCL 10:26
PROVIDERS: Visit Provider Internal Medicine Geriatric Medicine
DX: Z11.4 Encounter for screening for human immunodeficiency virus [HIV] (principal)
CPT/HCPCS: 36415; 87389

== ENCOUNTER 2024-05-01 09:23 | Outpatient (REF) | payer MEDICAID, SELFPAY ==
[2024-05-01 12:31] LABS: Creatinine Urine 121.55 mg/dL; Microalbum/Creatinine Ratio Ur 6.5 ug/mg cr (<30)
[2024-05-01 13:04] LABS: Alanine Aminotransferase 31 U/L (0-40); Albumin Level 4.7 g/dL (3.5-5.0); Alkaline Phosphatase 71 U/L (39-117); Anion Gap 14 (12-20); Aspartate Amino Transferase 26 U/L (5-37); Bilirubin Total 0.5 mg/dL (0.0-1.0); Blood Urea Nitrogen 13 mg/dL (9-16); Calcium 9.9 mg/dL (8.4-10.2); Carbon Dioxide 26 mmol/L (22-29); Chloride 106 mmol/L (96-108); Cholesterol 118 mg/dL (<200); Estimated Glomerular Filt Rate > 60; Glucose Random 122 mg/dL (60-115); HDL Cholesterol 33 mg/dL (>40); LDL Cholesterol Calculated 59 mg/dL (<100); Potassium 4.4 mmol/L (3.3-5.1); Sodium 142 mmol/L (135-145); Total Protein 7.7 g/dL (6.5-8.0); Triglycerides 132 mg/dL (<150)
== END 2024-05-01 09:24 | disposition home or self-care (01) ==
LOC: HO.HHCL 09:23
PROVIDERS: Visit Provider Internal Medicine Geriatric Medicine
DX: E11.9 Type 2 diabetes mellitus without complications (principal)
CPT/HCPCS: 36415; 80053; 80061; 82043; 82570

== ENCOUNTER 2024-09-15 14:14 | Outpatient (REF) | payer MEDICAID, SELFPAY ==
--- OUTSIDE RECORDS SUMMARY | 2024-09-15 15:15 | XMS_ITS | Encounter Summary ---
Author Organization [employer] Address [address] [place] [address] 7 [place] [address] Care Team Providers Care Hoisting Engineer Pile Driving Name Role Phone Name, Henri HELMS Primary Care Provider [phone] Reason for Visit * Reason Onset Date Comments Nurse Triage 09/15/2024 Encounter Details Date Type Department Care Team ([facility] st Contact Info) Description 09/15/2024 Telephone [facility] MED[facility] [address] [place], [place] [id number] Name, MD Henri [address] [place] [address] Nurse Triage Social History Tobacco Use Types Packs/Day Years Used Date Smoking Tobacco: Some Days Cigarettes Passive Smoke Exposure: Current Smokeless Tobacco: Former Alcohol Use Standard Drinks/Week Comments Yes 0 (1 standard drink = 0.6 oz pur e alcohol) occassional Alcohol Answer Date Recorded Frequency of Alcohol Consumption Not on file 04/22/2024 Average Number of Drinks Not on file 024 Frequency of Binge Drinking Not on file 03/30 Score 0 04/22/2024 Depression Answer Date Recorded Patient Health Questionnaire-9 Score 0 03/20/2023 Housing Stability Answer Date Recorded What is your housing situation today? I have shelly aviles 04/15/[address] you li ve. Do you have problems with any of the following? None of the above 04/15/2024 Food Insecurity Answer Date Recorded Within the past 12 months, y ou worried that your food would run out before you got money to buy more: Never True 04/15/2024 Within the past 12 months,th e food you bought just didn't last and you didn't have enough money to get more: Never True Transportation Answer Date Recorded In the past 12 months, has l ack of transportation kept you from medical appts, meetings, work or from getting things needed for daily living? No 04/15/2024 Utilities Answer Date Recorded In the past 12 months, has t he electric, gas, oil or water company threatened to shut off services in your home? No 04/15/2024 Depression Answer Date Recorded Patient Health Questionnaire-2 Score 0 03/20/2023 Internet Access Answer Date Recorded Internet Access Q1 Yes 04/15/2024 Internet Access Q2 Not on file 04/15/2024 Sex and Gender Information Value Date Recorded Sex Assigned at Male 05/28/2022 10:35 AM EDT Legal Sex Male 10:35 AM EDT Gender Identity Male 05/28/2022 10:35 AM EDT Sexual Orientation Straight 05/28/2022 10 :35 AM EDT documented as of this encounter Miscellaneous Notes * Telephone Encounter - Rena Connolly RN - 09/15/2024 9:19 AM EST Pt. Gives verbal permission to speak with daughter. Daughter states that pt. Has been having low back x about 1 week. No injury and unknown etiology. Pt back pain radiates down both legs and causes pt. Pain. No swelling in legs noted. This is anew concern according to pt. And has nothing to do withpast Furuncle in back. Protocol Used: Back Pain (Adult) Protocol-Based Disposition: See in Office or Video Visit Today-will go to walk in Video visit offer not recorded Positive Triage Questions: * Pain radiates into the thigh or further down the leg, and in both legs * Moderate back pain (e.g., interferes with normal activities) and present > 3 days * Patient wants to be seen * All higher-acuity triage questions were negative Care Advice Discussed: * Reassurance and Education - Back Pain * Cold or Heat * Sleep * Continue Activity * Pain Medicines * Telephone Encounter - Agustin Ames - 09/15/2024 8:59 AM EST Symptom: Back Pain - Not From Injury Outcome: Schedule an urgent appointment (within 1 hour) or talk to a nurse or provider soon Reason: Numbness of the leg The caller accepted this outcome. Contact pt at [phone] documented in this encounter Plan of Treatment Upcoming Encounters Date Type Department Care Team (Late st Contact Info) Description 09/28/2024 1:00 PM EST Office Visit [facility] OPTOM[facility] [address] [place] [address] Laurel Gomez, OD [address] [place] [address] 10/15/2024 10:30 AM EDT Office Visit [facility] ADULT DENTAL [address] [place] [address] Jalil Anglin DDS [address] [place] [address] 11/27/2024 10:15 AM EDT Office Visit [facility] [address] [place] [address] Henri Bolton MD [address] [place] [address] 03/12/2025 1:00 PM EDT Office Visit [facility] [address] [place] [address] Rabia Rodriguez [address] [place] [address] documented as of this encounter Visit Diagnoses Not on filedocumented in this encounter Additional Health Concerns Assessment Noted Time PHQ-9 Depression Total Score: 0 03/20/20 23 9:55 AM EDT documented as of this encounter Care Teams Hoisting Engineer Pile Driving Relationship Specialty Start Date End Date Henri Bolton MD [address] [place] [address] PCP - General Family Medicine 03/17/21 documented as of this encounter
--- OUTSIDE RECORDS SUMMARY | 2024-09-15 15:15 | XMS_ITS | Encounter Summary ---
Author Organization [employer] Address [address] [place] [address] Care Team Providers Care Beater Operator Name Role Phone Name, Henri HELMS Primary Care Provider [phone] Reason for Visit * Reason Comments Med Refill Encounter Details Date Type Department Care Team ([facility] Contact Info) Description 09/03/2024 Refill [facility] MEDICINE [address] [place], [place] [phone] Name, MD Henri [address] [place] [address] Social History Tobacco Use Types Packs/Day Years [...] AM EDT documented as of this encounter Plan of Treatment Upcoming Encounters Date Type Department Care Team (Late st Contact Info) Description 09/28/2024 1:00 PM EST Office Visit [facility] OPTOMETRY [address] [place] [address] Jason, Laurel, OD [address] [place] [address] 10/15/2024 10:30 AM EDT Office Visit [facility] ADULT DENTAL [address] [place] [address] Jalil Anglin DDS [address] [place] [address] 11/27/2024 10:15 AM EDT Office Visit [facility] MEDICINE [address] [place] [address] Name, MD Henri [address] [place] [address] 03/12/2025 1:00 PM EDT Office Visit [facility] ADULT DENTAL [address] [place] [address] Rabia Rodriguez [address] [place] [address] documented as of this encounter Visit Diagnoses Not on filedocumented in this encounter Additional Health Concerns Assessment Noted Time PHQ-9 Depression Total Score: 0 03/20/20 23 9:55 AM EDT documented as of this encounter Care Teams Beater Operator Relationship Specialty Start Date End Date Name, MD Henri [address] [place] [address] PCP - General Family Medicine 03/17/21 documented as of this encounter
--- OUTSIDE RECORDS SUMMARY | 2024-09-15 15:15 | XMS_ITS | Encounter Summary ---
Author Organization [employer] Address [address] [place] [address] Care Team Providers Care Director Trade Name Role Phone Name, Henri HELMS Primary Care Provider [phone] Encounter Details Date Type Department Care Team (Latest Contact Info) Description 09/15/2024 1:40 PM EST Office Visit [facility] [address] [place], [place] [phone] Lumbar radiculopathy (Primary Dx); Flank pain Social History Tobacco Use Types Packs/Day Years [...] AM EDT documented as of this encounter Last Filed Vital Signs Vital Sign Reading Time Taken Comments Blood Pressure 160/82 09/15/2024 1:34 PM EST Pulse 78 09/15/2024 1:34 PM EST Temperature 36.9 ??C (98.4 ??F) 09/15/2024 1:34 PM ES T Respiratory Rate 18 09/15/2024 1:34 PM EST Oxygen Saturation - - Inhaled Oxygen Concentration - - Weight 97.3 kg (214 lb 6.4 oz) 09/15/2024 1:34 P M EST Height 188 cm (6' 2 ) 09/15/2024 1:34 PM EST Body Mass Index 27.53 09/15/2024 1:34 PM EST documented in this encounter Plan of Treatment Upcoming Encounters Date Type Department Care Team (Late st Contact Info) Description 09/28/2024 1:00 PM EST Office Visit [facility] OPTOMETRY [address] [place] [address] Jason, Laurel, OD [address] [place] [address] 10/15/2024 10:30 AM EDT Office Visit [facility] ADULT DENTAL [address] [place] [address] Jalil Anglin DDS [address] [place] [address] 11/27/2024 10:15 AM EDT Office Visit [facility] MEDICINE [address] [place] [address] Name, [place] [address] 03/12/2025 1:00 PM EDT Office Visit [facility] ADULT DENTAL [address] [place], [place] [phone] Kai Rodriguezaris [address] [place] [address] Scheduled Orders Name Type Priority Associated Diagnoses Orde r Schedule Comprehensive Metabolic Panel Lab Routine Flank pain Expected: 09/15/2024 (Approximate), Expires: 09/15/2025 documented as of this encounter Procedures Procedure Name Priority Date/Time Associated Diagnosis Comments POCT URINALYSIS DIPSTICK Routine 09/15/2024 2:23 PM EST Flank pain documented in this encounter Results * POCT urinalysis dipstick manually resulted (09/15/2024 2:23 PM EST) Color, UA Yellow Clarity, UA Clear Glucose, UA Negative Bilirubin, UA Negative Ketones, UA Positive Comment:trace Spec Grav, UA 1.025 Blood, UA Negative Negative, None Detected pH, UA 6.5 Protein, UA Negative Urobilinogen, UA 0.2 Leukocytes, UA Negative Negative, Rare, Trace Nitrite, UA Negative Negative, None Detected Urine 09/15/2024 2:23 PM EST Afua Rivera NP POINT OF CARE TEST ENTER/EDIT OR DERABLES Final Result documented in this encounter Visit Diagnoses Diagnosis Lumbar radiculopathy- Primary Thoracic or lumbosacral neuritis or radiculitis, unspecified Flank pain Abdominal pain, unspecified site documented in this encounter Additional Health Concerns Assessment Noted Time PHQ-9 Depression Total Score: 0 03/20/20 23 9:55 AM EDT documented as of this encounter Care Teams Director Trade Relationship Specialty Start Date End Date Name, [place] [address] PCP - General Family Medicine 03/17/21 documented as of this encounter
--- OUTSIDE RECORDS SUMMARY | 2024-09-15 15:15 | XMS_ITS | Encounter Summary ---
Author Organization [employer] Address [address] [place] [address] [facility] [place] [address] Care Team Providers Care Roll Press Operator Name Role Phone Name, Henri HELMS Primary Care Provider [phone] Encounter Details Date Type Department Care Team (Latest Contact Info) Description 05/31/2021 Abstract [facility] CONVERSIONS Dental, Provider, DDS Social History Tobacco Use Types Packs/Day Years Used Date Smoking Tobacco: Never Assessed Sex and Gender Information Value Date Recorded Sex Assigned at Male 05/28/2022 10:35 AM EDT Legal Sex Male 10:35 AM EDT Gender Identity Male 05/28/2022 10:35 AM EDT Sexual Orientation Straight 05/28/2022 10 :35 AM EDT documented as of this encounter Plan of Treatment Upcoming Encounters Date Type Department Care Team (Late st Contact Info) Description 09/28/2024 1:00 PM EST Office Visit [facility] OPTOMETRY [address] [place] [address] Laurel Gomez, OD [address] [place] [address] 10/15/2024 10:30 AM EDT Office Visit [facility] ADULT DENTAL [address] [place] [address] Jalil Anglin DDS [address] [place] [address] 11/27/2024 10:15 AM EDT Office Visit [facility] MEDICINE [address] [place] [address] Name, MD Henri [address] [place] [address] 03/12/2025 1:00 PM EDT Office Visit [facility] ADULT DENTAL [address] [place], [place] [phone] Kai Rodriguezaris [address] [place] [address] documented as of this encounter Visit Diagnoses Not on filedocumented in this encounter Care Teams Roll Press Operator Relationship Specialty Start Date End Date Name, MD Henri [address] [place] [address] PCP - General Family Medicine 03/17/21 documented as of this encounter
--- OUTSIDE RECORDS SUMMARY | 2024-09-15 15:15 | XMS_ITS | Encounter Summary ---
Author Organization [employer] Address [address] [place] [address] Care Team Providers Care Pole Peeling Machine Operator Name Role Phone Name, Henri HELMS Primary Care Provider [phone] Reason for Visit * Reason Comments Med Refill Encounter Details Date Type Department Care Team (Late st Contact Info) Description 01/21/2023 Refill [facility] MEDICINE [address] [place] [address] Jarrett Peters MD [address] [place] [address] Mixed hyperlipidemia Social History Tobacco Use Types Packs/Day Years Used Date Smoking Tobacco: Former Cigarettes Smokeless Tobacco: Former Alcohol Use Standard Drinks/Week Comments Yes 0 (1 standard drink = 0.6 oz pur e alcohol) Sex and Gender Information Value Date Recorded Sex Assigned at Male 05/28/2022 10:35 AM EDT Legal Sex Male 10:35 AM EDT Gender Identity Male 05/28/2022 10:35 AM EDT Sexual Orientation Straight 05/28/2022 10 :35 AM EDT documented as of this encounter Plan of Treatment Upcoming Encounters Date Type Department Care Team (Late st Contact Info) Description 09/28/2024 1:00 PM EST Office Visit [facility] OPTOMETRY [address] [place] [address] Laurel Gomez, OD [address] [place] [address] 10/15/2024 10:30 AM EDT Office Visit [facility] ADULT DENTAL [address] [place] [address] Jalil Anglin DDS [address] [place] [address] 11/27/2024 10:15 AM EDT Office Visit [facility] MEDICINE [address] [place] [address] Name, MD Henri [address] [place] [address] 03/12/2025 1:00 PM EDT Office Visit [facility] ADULT DENTAL [address] [place] [address] Rabia Rodriguez [address] [place] [address] documented as of this encounter Visit Diagnoses Diagnosis Mixed hyperlipidemia documented in this encounter Care Teams Pole Peeling Machine Operator Relationship Specialty Start Date End Date Name, MD Henri [address] [place] [address] PCP - General Family Medicine 03/17/21 documented as of this encounter
--- OUTSIDE RECORDS SUMMARY | 2024-09-15 15:15 | XMS_ITS | Encounter Summary ---
Author Organization [employer] Address [address] [facility] 7 [place] [address] Care Team Providers Care Mold Washer Name Role Phone Name, Henri HELMS Primary Care Provider [phone] Reason for Visit * Reason Comments Med Refill Encounter Details Date Type Department Care Team ([facility] Contact Info) Description 07/23/2023 Refill [facility] MEDICINE [address] [place], [place] [phone] Name, MD Henri [address] [place] [address] Social History Tobacco Use Types Packs/Day Years Used Date Smoking Tobacco: Former Cigarettes Smokeless Tobacco: Former Alcohol Use Standard Drinks/Week Comments Yes 0 (1 standard drink = 0.6 oz pur e alcohol) occassional Depression Answer Date Recorded Patient Health Questionnaire-9 Score 0 03/20/2023 Housing Stability Answer Date Recorded What is your housing situation today? I have shelly aviles 05/14/[address] you li ve. Do you have problems with any of the following? None of the above 05/14/2023 Food Insecurity Answer Date Recorded Within the past 12 months, y ou worried that your food would run out before you got money to buy more: Never True 05/14/2023 Within the past 12 months,th e food you bought just didn't last and you didn't have enough money to get more: Never True Transportation Answer Date Recorded In the past 12 months, has l ack of transportation kept you from medical appts, meetings, work or from getting things needed for daily living? No 05/14/2023 Utilities Answer Date Recorded In the past 12 months, has t he electric, gas, oil or water company threatened to shut off services in your home? No 05/14/2023 Depression Answer Date Recorded Patient Health Questionnaire-2 Score 0 03/20/2023 Sex and Gender Information Value Date Recorded Sex Assigned at Male 05/28/2022 10:35 AM EDT Legal Sex Male 10:35 AM EDT Gender Identity Male 05/28/2022 10:35 AM EDT Sexual Orientation Straight 05/28/2022 10 :35 AM EDT documented as of this encounter Plan of Treatment Upcoming Encounters Date Type Department Care Team (Late st Contact Info) Description 09/28/2024 1:00 PM EST Office Visit [facility] OPTOMETRY [address] [place] [address] JasonLaurel oconnor, OD [address] [place] [address] 10/15/2024 10:30 AM EDT Office Visit [facility] ADULT DENTAL [address] [place] [address] Jalil Anglin DDS [address] [place] [address] 11/27/2024 10:15 AM EDT Office Visit [facility] MEDICINE [address] [place] [address] Henri Bolton MD [address] [place] [address] 03/12/2025 1:00 PM EDT Office Visit [facility] ADULT DENTAL [address] [place] [address] Kai Rodriguezaris [address] [place] [address] documented as of this encounter Visit Diagnoses Not on filedocumented in this encounter Additional Health Concerns Assessment Noted Time PHQ-9 Depression Total Score: 0 03/20/20 9:55 AM EDT documented as of this encounter Care Teams Mold Washer Relationship Specialty Start Date End Date NameHenri MD [address] [place] [address] PCP - General Family Medicine 03/17/21 documented as of this encounter
--- OUTSIDE RECORDS SUMMARY | 2024-09-15 15:15 | XMS_ITS | Clinical Summary ---
Author Organization [employer] Address [address] [facility] 7t [place] [address] Care Team Providers Care Label Pinker Name Role Phone Name, Henri HELMS Primary Care Provider [phone] Allergies No known active allergies Medications lisinopril 10 MG tablet TAKE 1 TABLET BY MOUTH EVERY DAY FOR 90 DAYS 3 Active aspirin (Aspirin Low Dose) 81 MG EC tablet Take 1 tablet (81 mg) by mouth Once per day. 90 tablet 3 4 Active glucose blood (FREESTYLE LITE) test stripIndications:T ype 2 diabetes mellitus without complication, without long-term current use of insulin ([facility]) Use to test blood sugar up to twice daily 100 strip 11 4 Active metFORMIN (Glucophage) 1000 MG tablet Take 1 tablet (1,000 mg) by mouth with breakfast and with evening meal. 180 tablet 3 4 Active TRUEplus Lancets 33G [facility] Use to test blood sugar 2 time(s) daily 100 each 11 4 Active atorvastatin (Lipitor) 40 MG tabletIndications: Mixed hyperlipidemia TAKE 1 TABLET BY MOUTH EVERY DAY 90 tablet 3 4 Active tamsulosin (Flomax) 0.4 MG 24 hr capsuleIndications :Benign prostatic hyperplasia with urinary frequency TAKE 1 CAPSULE BY MOUTH EVERY DAY 1/2 HOUR FOLLOWING THE SAME MEAL EACH DAY 90 capsule 1 4 Active salicylic acid-lactic acid 17 % external solution Apply topically Once per day. 9.8 mL 1 4 Active benzoyl peroxide (PanOxyl Foaming Wash) 10 % external washIndications:Fu runcle of back (any part, except buttock) Apply topically Once per day. 148 g 3 4 05/01/20 25 Active cetirizine (ZyrTEC) 10 MG tabletIndications: Allergic rhinitis, unspecified seasonality, unspecified trigger TAKE 1 TABLET BY MOUTH EVERY MORNING 90 tablet 1 4 Active fluticasone (Flonase) 50 MCG/ACT nasal sprayIndications:A llergic rhinitis, unspecified seasonality, unspecified trigger INSTILL 2 SPRAYS IN EACH NOSTRIL ONCE DAILY IN THE MORNING, SHAKE GENTLY 48 g 4 Active cyclobenzaprine (Flexeril) 10 MG tabletIndications: Lumbar radiculopathy Take 1 tablet (10 mg) by mouth if needed at bedtime for muscle spasms for up to 10 days. 10 tablet 5 09/25/19 25 Active Active Problems Problem Noted Date Diagnosed Date Low back pain associated wit h a spinal disorder other than radiculopathy or spinal stenosis 09/15/2024 Flank pain 09/15/2024 Extruded tooth 06/04/2024 Emphysema of lung 10/16/2023 SHARMAINE (obstructive sleep apnea) 10/16/2023 Pulmonary nodules 10/16/2023 Former smoker 10/16/2023 Periodontal abscess 04/08/2023 Dental calculus 04/08/2023 Dental abscess 04/08/2023 Generalized gingival recession 04/08/2023 Missing teeth, acquired 04/08/2023 Renal cyst 11/26/2022 Dyslipidemia 09/25/2018 Essential hypertension 09/25/2018 Nicotine dependence 09/25/2018 Type 2 diabetes mellitus without complication Lung mass 09/25/2018 Overview (11/26/2022): Ct chest from 10/2020 at [facility]: IMPRESSION: Stable small calcified and noncalcified pulmonary nodules probably related to old granulomatous disease. Overweight 09/25/2018 Resolved Problems Problem Noted Date Diagnosed Date Resolved Date Chronic sinusitis 10/16/2023 10/16/2023 Smoker 10/16/2023 10/16/2023 Nicotine dependence, cigaret ro, uncomplicated 10/16/2023 10/16/2023 Tinea pedis 09/25/2018 10/16/2023 Encounters Date Type Department Care Team Description 09/15/2024 1:40 PM EST Office Visit [facility] [address] Lumbar radiculopathy (Primary Dx); Flank pain 09/15/2024 Travel 09/15/[address] [facility] [place] [address] NameHenri MD Nurse Triage 09/03/[address] [facility] [address] [place] [address] NameHenri MD 07/03/[address] [address] Chandler Sánchez [place] feb recall 07/03/2024 Telephone [facility] [place] [address] Chandler Sánchez [place] feb recall from Last 3 Months Immunizations Name Administration Dates Next Due Hep B, adult 09/23/2023,05/09/2023,03/28/2023 Influenza Injectable Quadriv alant Preservative Free IIV4 MDCK 04/04/2023 Influenza injectable quadriv alent IIV4 with preservative 10/01/2019 Influenza injectable quadriv alent preservative free 05/18/2022,05/23/2021 Influenza, seasonal, injecta ble, preservative free 04/22/2024 Pneumococcal Conjugate PCV 20 03/20/2023 Pneumococcal Polysaccharide PPSV23 10/27/2018 Tdap 10/01/2019 Zoster, Recombinant 04/04/2023,11/09/2022 Family History Medical History Relation Name Comments Heart disease Father Hypertension Father Diabetes Mother Hypertension Mother Kidney disease Mother Relation Name Status Comments Father Mother Social History Tobacco Use Types Packs/Day Years Used Date Smoking Tobacco: Some Days Cigarettes Passive Smoke Exposure: Current Smokeless Tobacco: Former Tobacco Cessation:Ready to Q uit: Not Asked Alcohol Use Standard Drinks/Week Comments Yes 0 [...] Orientation Straight 05/28/2022 10 :35 AM EDT Last Filed Vital Signs Vital Sign Reading Time Taken Comments Blood Pressure 160/82 09/15/2024 1:34 PM EST Pulse 78 09/15/2024 1:34 PM EST Temperature 36.9 ??C (98.4 ??F) 09/15/2024 1:34 PM ES T Respiratory Rate 18 09/15/2024 1:34 PM EST Oxygen Saturation 99% 10/16/2023 9:28 AM EDT Inhaled Oxygen Concentration - - Weight 97.3 kg (214 lb 6.4 oz) 09/15/2024 1:34 P M EST Height 188 cm (6' 2 ) 09/15/2024 1:34 PM EST Body Mass Index 27.53 09/15/2024 1:34 PM EST Plan of Treatment Upcoming Encounters Date Type Department Care Team (Late st Contact Info) Description 09/28/2024 1:00 PM EST Office Visit [facility] OPTOMETRY [address] [place] [address] Laurel Gomez, OD [address] [place] [address] 10/15/2024 10:30 AM EDT Office Visit [facility] ADULT DENTAL [address] [place] [address] Jalil Anglin, DDS [address] [place] [address] 11/27/2024 10:15 AM EDT Office Visit [facility] [address] [place] [address] Name, MD Henri [address] [place] [address] 03/12/2025 1:00 PM EDT Office Visit [facility] ADULT DENTAL [address] [place] [address] Kai Rodriguezaris [address] [place] [address] Health Maintenance Due Date Last Done Comments Anal Pap 1965 CT Colonography 1965 FIT DNA/Cologuard 1965 FIT 1965 FOBT 1965 Sigmoidoscopy 1965 Hepatitis A Vaccines (1 of 2 - Risk 2-dose series) 1984 Dental Oral Exam 10/08/2023 04/08/2023, 12/12/2020 Depression Screening 03/20/2024 03/20/2023, 03/20/20 23 COVID-19 Vaccine ( season) 2024 05/18/2022, 11/15/2021, 12/07/2020, Additional history exists Diabetes: Hemoglobin A1C 10/20/2024 024, 10/16/2023, 03/20/2023, Additional history exists Dental Prophylaxis 12/03/2024 06/04/2024, 0 04/08/2023, 12/05/2021 Eye Exam 04/15/2025 04/15/2023, 03/29, 04/15/2023, Additional history exists SDOH Screening 04/15/2025 04/15/2024 Alcohol/Substance Use Screening 04/22/2025 04/22/2024 Diabetes: Foot Exam 04/22/2025 04/22/2024, 04/22/2024, 04/22/2024, Additional history exists Diabetes: Urine Protein Screening 05/01/2025 05/01/2024, 03/21/2023, 06/15/2022, Additional history exists Lipid Panel 05/01/2025 05/01/2024, 02/27, 06/15/2022, Additional history exists Tobacco Screening 06/04/2025 06/04/2024 Dental X-Ray: Bitewings 06/05/2025 06/04/20 24, 04/08/2023, 12/12/2020 Dental X-Ray: Full Mouth 04/09/2026 04/08/2023, 02/2019 Colonoscopy 09/25/2028 09/26/2023 Colorectal Cancer Screening 09/25/2028 DTaP/Tdap/Td Vaccines (2 - Td or Tdap) 09/30/2029 10/01/2019 RSV Patients and Patients Aged 60 years or older (1 - 1-dose 75+ series) 2040 Hepatitis C Screening Completed 11/09/2020 Pneumococcal Vaccine: 50+ Years Completed 03/20/2023, 10/27/2018 Zoster Vaccines Completed 04/04/2023, 11/09/2022 Hepatitis B Vaccines Completed 09/23/2023, 05/09/2023, 03/28/2023 HIV Screening Completed 10/16/2023 Influenza Vaccine Completed 04/22/2024, , 05/18/2022, Additional history exists HIB Vaccines Aged Out No longer eligi ble based on patient's age to complete this topic HPV Vaccines Aged Out No longer eligi ble based on patient's age to complete this topic IPV Vaccines Aged Out No longer eligi ble based on patient's age to complete this topic Meningococcal Vaccine Aged Out No jr henry eligible based on patient's age to complete this topic RSV under 20 months Aged Out No longe r eligible based on patient's age to complete this topic Rotavirus Vaccines Aged Out No longer eligible based on patient's age to complete this topic Procedures Procedure Name Priority Date/Time Associated Diagnosis Comments POCT URINALYSIS DIPSTICK Routine 09/15/2024 2:23 PM EST Flank pain Full PROPHYLAXIS - ADULT Routine 06/04/2024 1:00 PM EST Periodontal abscess Periodontal disease Generalized gingival recession BITEWINGS - 4 RADIOGRAPHIC IMAGES Routine 06/04/2024 1:00 PM EST Periodontal abscess Periodontal disease Generalized gingival recession Missing teeth, acquired ALBUMIN, RANDOM URINE W/CREATININE Routine 05/01/2024 9:30 AM EDT Type 2 diabetes mellitus without complication, without long-term current use of insulin ([facility]) LIPID PANEL, STANDARD Routine 05/01/2024 9:27 AM EDT Type 2 diabetes mellitus without complication, without long-term current use of insulin ([facility]) POCT GLYCATED HEMOGLOBIN, TOTAL Routine 04/22/2024 10:00 AM EDT Type 2 diabetes mellitus without complication, without long-term current use of insulin ([facility]) HIV 1/2 ANTIGEN/ANTIBODY, FOURTH GENERATION W/RFL Routine 10/16/2023 10:29 AM EDT Screening for HIV (human immunodeficiency virus) HM COLONOSCOPY Routine 09/26/2023 INTRAORAL - COMPLETE SERIES OF RADIOGRAPHIC IMAGES Routine 04/08/2023 10:00 AM EDT PERIODIC ORAL EVALUATION - ESTABLISHED PATIENT Routine 04/08/2023 10:00 AM EDT ZZZ HISTORICAL HEPATITIS C AB W/REFL TO HCV RNA, QN, PCR Routine 11/09/2020 8:16 AM EDT from Last 3 Months or Most Recently Relevant to Health Maintenance Results * POCT urinalysis dipstick manually resulted [...] CARE TEST ENTER/EDIT OR DERABLES Final Result * Albumin, Random Urine W/Creatinine (05/01/2024 9:30 AM EDT) Creatinine, Urine 121.55 mg/dL [facility] Microalbumin Urine 8.0 mg/L [facility] Microalbum Creatinine Ratio Ur 6.5 <30 ug/mg cr [facility] Comment:Albumin/Creatinine R atio Reference Ranges: Normal: < 30 ug/mg creatinine Microalbuminuria: 30 - 300 ug/mg creatinineClinical Albuminuria: > 300 ug/mg creatinine Urine (Urine, Random) 05/01/2024 9:30 AM EDT 05/01/2024 11:17 AM EDT Henri Bolton MD LAB URINE ORDERABLES Final Resul t [facility] [address] [place] [address] [phone] * (ABNORMAL) Lipid Panel, Standard (05/01/2024 9:27 AM EDT) Triglycerides 132 <150 mg/dL [facility] Comment:Desirable Triglyceri de: less than 150 mg/dLBorderline High Triglyceride 150-199 mg/dLHigh Triglyceride: 200-499 mg/dLVery High Triglyceride: greater than or equal to 5OO mg/dL Cholesterol 118 <200 mg/dL [facility] Comment:Desirable Cholestero l: less than 200 mg/dLBorderline High Cholesterol: 200-239 mg/dLHigh Cholesterol: greater than 239 mg/dL LDL Cholesterol Calculated 59 <100 mg/dL [facility] Comment:Desirable LDL: less than 100 mg/dLNear Optimal/Above Optimal LDL: 110- 129 mg/dLBorderline High LDL: 130-159 mg/dLHigh LDL: 160-189 mg/dLVery High LDL: greater than or equal to 190 mg/dL HDL Cholesterol 33(L) >40 mg/dL [facility] Comment:Desirable HDL: great er than 40 mg/dL Note: This HDL assay may give artificially low results in patients with liver disease. Blood Venous blood specimen / Unknown 05/01/2024 9:27 AM EDT 05/01/2024 11:04 AM EDT us Henri Bolton MD LAB BLOOD ORDERABLES Final Resul t [facility] [address] [place] [phone] * (ABNORMAL) POCT HGB A1C (04/22/2024 10:00 AM EDT) Hemoglobin A1C 6.6(A) 4.0 - 6.0 % QC Media Lot # [id number] Lot# Expiration Date Blood 04/22/2024 10:0 0 AM EDT us Henri Bolton MD POINT OF CARE TEST ENTER/EDIT OR DERABLES Final Result * HIV-1/2 Antigen and Antibodies, Fourth Generation, with Reflexes (10/16/2023 10:29 AM EDT) HIV AB/AG Nonreactive Nonreactive [facility] Comment:HIV-1 p24 Ag and/or HIV-1/HIV-2 Ab not detected.A test result that is nonreactive does not exclude thepossibility of exposure to or infection with HIV-1 and/orHIV-2. Nonreactive results in this assay for individualswith prior exposure to HIV-1 and/or HIV-2 may be due toantigen and antibody levels that are below the limit ofdetection of this assay.The [facility] HIV Ag/Ab Combo assay result andsupplemental assay results should be interpreted inconjunction with the patient's clinical presentation,history and other laboratory results. If the results areinconsistent with clinical evidence, additional testing issuggested to confirm the result. Blood Venous blood specimen / Unknown 10/16/2023 10:29 AM EDT 10/16/2023 11:11 AM EDT Henri Bolton MD LAB BLOOD ORDERABLES Final Resul t Performing Organization Address [facility]/ZIP Co de Phone Number [facility] [address] [place] [address] [phone] * (ABNORMAL) Hm Colonoscopy (09/26/2023) Colonoscopy Abnormal Normal, Abnormal, BIRADS 0 , BIRADS 1 , BIRADS 2, BIRADS 3 , BIRADS 4+ Historical Provider HEALTH MAINTENANCE Final Result * HEPATITIS C AB W/REFL TO HCV RNA, QN, PCR (11/09/2020 8:16 AM EDT) HEPATITIS C ANTIBODY NON-REACT ALFRED NON-REACT ALFRED [facility] INDEX 0.01 <1.00 [facility] Comment: ?? HCV antibody was non-reactive. There is no laboratory ?? evidence of HCV infection. ?? In most cases, no further action is required. However, if recent HCV exposure is suspected, a test for HCV RNA (test code 12265) is suggested. ?? For additional information please refer to http://education.[employer].dermSearch/faq/[place]51o7 (This link is being provided for informational/ educational purposes only.) ?? 11/09/2020 8:16 AM EDT Historical Provider HISTORICAL/NON ORDERABLE LABS Final Result Performing Organization Address City/[facility]/ZIP Co de Phone Number [facility] [place] [address], [place] from Last 3 Months or Most Recently Relevant to Health Maintenance Insurance [facility] C3 [facility] [employer]ICAID STAND ADULT Care Teams Label Pinker Relationship Specialty Start Date End Date Name, MD Henri [address] [place] [phone] PCP - General Family Medicine 03/17/21
--- OUTSIDE RECORDS SUMMARY | 2024-09-15 15:15 | XMS_ITS | Encounter Summary ---
Author Organization [employer] Address [address] [place] [address] [address] [place] [address] Care Team Providers Care Import Export Manager Name Role Phone Name, Henri HELMS Primary Care Provider Encounter Details Date Type Department Care Team (Late st Contact Info) Description 01/22/2023 Orders Only [facility] [address] [place], [place] [phone] Nelsy Sosa LPN Social History Tobacco Use Types Packs/Day Years [...] Description 09/28/2024 1:00 PM EST Office Visit [facility] OPT[facility] [address] [place] [address] Jason, Laurel, OD [address] [place] [address] 10/15/2024 10:30 AM EDT Office Visit [facility] ADULT DENTAL [address] [place] [address] Jalil Anglin DDS [address] [place] [address] 11/27/2024 10:15 AM EDT Office Visit [facility] [address] [place] [address] Name, MD Henri [address] [place] [address] 03/12/2025 1:00 PM EDT Office Visit [facility] ADULT DENT[facility] [address] [place] [address] Rabia Rodriguez [address] [place] [address] documented as of this encounter Visit Diagnoses Not on filedocumented in this encounter Care Teams Import Export Manager Relationship Specialty Start Date End Date Name, MD Henri [address] [place] [phone] PCP - General Family Medicine 03/17/21 documented as of this encounter
--- OUTSIDE RECORDS SUMMARY | 2024-09-15 15:15 | XMS_ITS | Encounter Summary ---
Author Organization [employer] Address [address] [place] [address] [address] [address] Care Team Providers Care Slitter Cut Off Operator Name Role Phone Name, Henri HELMS Primary Care Provider [phone] Encounter Details Date Type Department Care Team (Late st Contact Info) Description 02/25/2023 Orders Only [facility] MEDICINE [address] [place], [place] [phone] Iona Mcgraw MD [address] [place] [address] Skin ulcer, unspecified ulcer stage (CMS/HCC) (Primary Dx) Social History Tobacco Use Types Packs/Day Years [...] 1:00 PM EST Office Visit [facility] OPTOMETRY [address] [place], [place] [phone] Jason, Laurel, OD [address] [place] [address] 10/15/2024 10:30 AM EDT Office Visit [facility] ADULT DENTAL [address] [place] [address] Jalil Anglin DDS [address] [place] [address] 11/27/2024 10:15 AM EDT Office Visit [facility] MEDICINE [address] [place] [address] Name, MD Henri [address] [place] [address] 03/12/2025 1:00 PM EDT Office Visit [facility] ADULT DENTAL [address] [place] [address] Rabia Rodriguez [address] [place] [address] documented as of this encounter Visit Diagnoses Diagnosis Skin ulcer, unspecified ulcer stage (CMS/[facility])- Primary documented in this encounter Care Teams Slitter Cut Off Operator Relationship Specialty Start Date End Date NameHenri MD [address] [place] [address] PCP - General Family Medicine 03/17/21 documented as of this encounter
--- OUTSIDE RECORDS SUMMARY | 2024-09-15 15:15 | XMS_ITS | Data Portability ---
Author Organization [place] - [facility], Allergy Address [address] [address] Care Team Providers Care Stenciler Name Role Phone NAME, CHESTER Primary Care Provider Assessment Encounter Date Assessment Date Assessment LastModified by Organization Details LastModified Time 05/22/2024 05/22/2024 Patient with chronic nasal obstruction predominantly on the right side. He reports this has been present for many years. Notes that over the last 2 years following a left maxillary dental extraction symptoms have been worse. Examination shows no colored nasal discharge but significant septal deviation to the right side. I have suggested adding Astelin 2 sprays each nostril twice daily and starting a course of doxycycline. Will arrange for a CT of the sinuses elayne Not available 05/22/2024 10:40:14 Plan of Treatment Reminders Order Date Submit Date Provider Last Modified By Organization Details Last Modified Time Details Appointments CT Scan 2024 01:30P M [facility] Not available Not available Not available FOLLOW UP 15 2024 02:00P M ELIAN JONHSTON PA-C Not available Not available Not available Lab None recorded. Referral None recorded. Procedures None recorded. Surgeries None recorded. Imaging CT, maxillofa cial, w/o contrast 2023 024 [facility], [address] [place] [address], [place], [address], 05/29/2024 08:52:18 Medication Orders doxycycli ne hyclate 100 mg tablet 2023 024 [facility], [address] [place] [address], [phone], 05/22/2024 10:51:19 azelastin e 137 mcg (0.1 %) nasal spray 2023 [facility], [address] [facility], [place], [place], [phone], 09/15/2024 14:37:28 Patient TargetsNo targets recorded. Patient InstructionsNo instructions recorded. Reason for Referral None Reported. Problems Name Problem SNOMED Code Status Onset Date Resolution Date Notes Provider Name and Address Organization Details Recorded Time Allergic rhinitis 93099102 Active WALDO STEVENS MD [address] [place] [address], [place], [address], [facility] 4 10:38:25 Chronic sinusitis 82001633 Active WALDO STEVENS MD [address] [place] [address], [place], [address], [facility] 4 10:38:30 Chronic rhinitis 42849457 Active WALDO STEVENS MD [address] [place] [address], [place], [address], [facility] 4 10:38:49 Deviated nasal septum 510391107 Active WALDO STEVENS MD [address] [place] [address], [place], [address], [facility] 4 10:41:00 Problem Notes None recorded. Medical Equipment None Reported. Allergies No known drug allergies Medications Name Sig Start Date Stop Date Status Note LastModified by Organization Details LastModified Time atorvastati n 40 mg tablet TAKE 1 TABLET BY MOUTH EVERY DAY active Not Available Not Available No t Available doxycycline hyclate 100 mg capsule TAKE ONE CAPSULE BY MOUTH TWICE DAILY FOR 10 DAYS, TAKE WITH FOOD AND WATER 05/22 completed Not Available Not Available Not Available cetirizine 10 mg tablet TAKE 1 TABLET BY MOUTH EVERY MORNING active Not Available Not Available No t Available Lidocaine Viscous 2 % mucosal solution TAKE 5 ML BY MOUTH 3 TIMES PER DAY NEEDED FOR PAIN FOR 7 DAYS 05/22 completed Not Available Not Available Not Available benzoyl peroxide 10 % topical cleanser APPLY TO THE AFFECTED AREA(S) ONCE DAILY 05/22 completed Not Available Not Available Not Available aspirin 81 mg tablet,tony yed release TAKE 1 TABLET BY MOUTH EVERY DAY active Not Available Not Available No t Available tamsulosin 0.4 mg capsule TAKE 1 CAPSULE BY MOUTH 1/2 BEFORE THE THE SAME MEAL EVERY DAY active Not Available Not Available No t Available Compound W 17 % topical liquid APPLY ONCE DAILY DIRECTED 05/22 completed Not Available Not Available Not Available metformin 1,000 mg tablet TAKE 1 TABLET BY MOUTH TWICE DAILY WITH BREAKFAST AND EVENING MEAL active Not Available Not Available No t Available lisinopril 10 mg tablet TAKE 1 TABLET BY MOUTH EVERY DAY active Not Available Not Available No t Available bisacodyl 5 mg tablet,tony yed release TAKE 4 TABS AT NOON THE DAY BEFORE YOUR COLONOSCO PY 05/22 completed Not Available Not Available Not Available azelastine 137 mcg (0.1 %) nasal spray SPRAY 2 SPRAYS IN EACH NOSTRIL TWICE DAILY active Not Available Not Available No t Available fluticasone propionate 50 mcg/actuati on nasal spray,suspe nsion INSTILL 2 SPRAYS IN EACH NOSTRIL ONCE DAILY IN THE MORNING SHAKE GENTLY active Not Available Not Available No t Available doxycycline hyclate 100 mg tablet TAKE 1 TABLET BY MOUTH TWICE DAILY FOR 10 DAYS active Not Available Not Available No t Available nicotine 7 mg/24 hr daily transdermal patch Apply 1 patch every day by transderm al route. active Not Available Not Available No t Available FreeStyle Lite Strips USE DIRECTED TO CHECK BLOOD SUGAR UP TO TWICE DAILY active Not Available Not Available No t Available Gavilax 17 gram/dose oral powder MIX 17 GRAMS IN LIQUID AND DRINK BY MOUTH DAILY 05/22 completed Not Available Not Available Not Available TRUEplus Lancets 33 gauge USE DIRECTED TO CHECK BLOOD SUGAR TWICE DAILY 05/22 completed Not Available Not Available Not Available Vitals Date Recorded Body height Body mass index (BMI) Body weight Provider Name and Address Organization Details Last Updated DateTime 05/22/2024 190.5 cm 26.9 kg/m2 86433.36 g Tamera Rodriguez [place] - [facility] 05/22/2024 10:15:28 Social History None recorded. Functional Status None recorded. Mental Status None recorded. Family History Nothing Reported. Medical History Condition Response Diabetes Y Cancer N High Cholesterol Y Kidney Disease Y Past Encounters Encounter ID Performer Location Encounter Start Date Encounter Closed Date Diagnosis/Indication Diagnosis SNOMED-CT Code Diagnosis ICD10 Code Diagnosis Note [id number] WALDO ASHLEY MD [facility] [address] [address] 05/22/2024 09:42:08 05/22/2024 10:42:58 Allergic rhinitis 87170222 J30.9 Chronic sinusitis 261594 00 J32.9 Chronic rhinitis 9489217 6 J31.0 Deviated nasal septum 12 7708053 J34.2 Health Concerns Section Related Observation LastModified by Organization Detai ls LastModified Time None Recorded Concern Status LastModified by Organization Details LastModified Time None Recorded Advance Directives Directive None Recorded Payers Encounter Date Sequence Insurance Name Policy Number Policy [place] Covered Member ID [place] Member ID Guarantor Name 05/22/2024 1 [place] [facility] Francisco Osullivan [id number] Francisco Osullivan Notes Date Note Type Note Provider Name and Address Organization Details Recorded Time 05/22/2024 text/html Patient reports history of chronic sinusitis. He is seen with his daughter who interprets for me. He notes many years of right sided nasal congestion and sinus pressure. 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 Denies any history of cancer. Reports mild allergy but no asthma WALDO REN MD [address] [place] [address], [phone], [place] - [facility] 05/22/2024 10:41:16
--- OUTSIDE RECORDS SUMMARY | 2024-09-15 15:15 | XMS_ITS | Encounter Summary ---
Author Organization [employer] [facility] Address [address] [place] [address] [address], [place] [address] Care Team Providers Care Ferry Terminal Agent Name Role Phone Name, Henri HELMS Primary Care Provider [phone] Encounter Details Date Type Department Care Team (Late Contact Info) Description 04/26/2023 Abstract [facility] ADULT DENTAL [address] [place] [address] Jalil Anglin DDS [address] [place] [address] Social History Tobacco Use Types Packs/Day Years Used Date Smoking Tobacco: Former Cigarettes Smokeless Tobacco: Former Alcohol Use Standard Drinks/Week Comments Yes 0 (1 standard drink = 0.6 oz pur e alcohol) occassional Depression Answer Date Recorded Patient Health Questionnaire-9 Score 0 03/20/2023 Depression Answer Date Recorded Patient Health Questionnaire-2 [...] 09/28/2024 1:00 PM EST Office Visit [facility] OPTOMETRY [address] [place] [address] Laurel Gomez, OD [address] [place] [address] 10/15/2024 10:30 AM EDT Office Visit [facility] ADULT DENTAL [address] [place] [address] Jalil Anglin DDS [address] [place] [address] 11/27/2024 10:15 AM EDT Office Visit [facility] MEDICINE [address] [place] [address] Henri Bolton MD [address] [place] [address] 03/12/2025 1:00 PM EDT Office Visit [facility] ADULT DENTAL [address] [place] [address] Rabia Rodriguez [address] [place] [address] documented as of this encounter Visit Diagnoses Not on filedocumented in this encounter Additional Health Concerns Assessment Noted Time PHQ-9 Depression Total Score: 0 03/20/20 23 9:55 AM EDT documented as of this encounter Care Teams Ferry Terminal Agent Relationship Specialty Start Date End Date NameHenri MD [address] [place] [address] PCP - General Family Medicine 03/17/21 documented as of this encounter
--- OUTSIDE RECORDS SUMMARY | 2024-09-15 15:15 | XMS_ITS | Encounter Summary ---
Author Organization [employer] Address [address] [facility] [address] [place] [address] Care Team Providers Care Corrections Nurse Name Role Phone Name, Henri HELMS Primary Care Provider Encounter Details Date Type Department Care Team (Latest Contact Info) Description 09/15/2024 Travel Social History Tobacco Use Types Packs/Day Years [...] is your housing situation today? I have shellylindy aviles 04/15/[address] you [...] 1:00 PM EST Office Visit [facility] OPTOMETRY [address] [place] [address] JasonChandanan, OD [address] [place] [address] 10/15/2024 10:30 AM EDT Office Visit [facility] ADULT DENTAL [address] [place] [address] Jalil Anglin, DDS [address] [place] [address] 11/27/2024 10:15 AM EDT Office Visit [facility] MEDICINE [address] [place] [address] Henri Bolton MD [address] [place] [address] 03/12/2025 1:00 PM EDT Office Visit [facility] ADULT DENTAL [address] [place] [address] Kai Rodriguezaris [address] [place] [address] documented as of this encounter Visit Diagnoses Not on filedocumented in this encounter Additional Health Concerns Assessment Noted Time PHQ-9 Depression Total Score: 0 03/20/20 23 9:55 AM EDT documented as of this encounter Care Teams Corrections Nurse Relationship Specialty Start Date End Date Henri Bolton MD [address] [place] [address] PCP - General Family Medicine 03/17/21 documented as of this encounter
--- OUTSIDE RECORDS SUMMARY | 2024-09-15 15:15 | XMS_ITS | Encounter Summary ---
Author Organization [employer] Address [address] [facility] 7 [place] [address] Care Team Providers Care Corrections Nurse Name Role Phone Name, Henri HELMS Primary Care Provider [phone] Reason for Visit * Reason Onset Date Comments Appointment Request 04/17/2024 Encounter Details Date Type Department Care Team ([facility] Contact Info) Description 04/17/2024 Telephone [facility] MEDICINE [address] [place], [place] [phone] Name, MD Henri [address] [place] [address] Appointment Request Social History Tobacco Use Types Packs/Day Years [...] encounter Miscellaneous Notes * Telephone Encounter - Li Porter - 04/17/2024 9:27 AM EDT Tc from daughter requesting a same day derm appt, due on last appt being advised by PCP Claire that skin tags are active to make an appt. documented in this encounter Plan of Treatment Upcoming Encounters Date Type Department Care Team (Late st Contact Info) Description 09/28/2024 1:00 PM EST Office Visit [facility] OPTOMETRY [address] [place] [address] Jason, Laurel, OD [address] [place] [address] 10/15/2024 10:30 AM EDT Office Visit [facility] ADULT DENTAL [address] [place] [address] Jalil Anglin DDS [address] [place] [address] 11/27/2024 10:15 AM EDT Office Visit [facility] MEDICINE [address] [place] [address] Name, MD Henri [address] [place] [address] 03/12/2025 1:00 PM EDT Office Visit [facility] ADULT DENTAL [address] [place] [address] Michael, Rabia [address] [place] [address] documented as of this encounter Visit Diagnoses Not on filedocumented in this encounter Additional Health Concerns Assessment Noted Time PHQ-9 Depression Total Score: 0 03/20/20 9:55 AM EDT documented as of this encounter Care Teams Corrections Nurse Relationship Specialty Start Date End Date Name, MD Henri [address] [place] [address] PCP - General Family Medicine 03/17/21 documented as of this encounter
--- OUTSIDE RECORDS SUMMARY | 2024-09-15 15:15 | XMS_ITS | Encounter Summary ---
Author Organization [employer] Address [address] [place] [address] [address] Care Team Providers Care Office Associate Name Role Phone Name, Henri HELMS Primary Care Provider [phone] Encounter Details Date Type Department Care Team (Late Contact Info) Description 04/11/2023 Abstract [facility] ADULT DENTAL [address] [place] [address] Michael Rabia [address] [place] [address] Social History Tobacco Use Types Packs/Day Years [...] Description 09/28/2024 1:00 PM EST Office Visit [facility] OPTOMETRY [address] [place] [address] JasonLaurel oconnor, OD [address] [place] [address] 10/15/2024 10:30 AM EDT Office Visit [facility] ADULT DENTAL [address] [place] [address] Jalil Anglin DDS [address] [place] [address] 11/27/2024 10:15 AM EDT Office Visit [facility] MEDICINE [address] [place] [address] Name, MD Henri [address] [place] [address] 03/12/2025 1:00 PM EDT Office Visit [facility] ADULT DENTAL [address] [place] [address] Rabia Rodriguez [address] [place] [address] documented as of this encounter Visit Diagnoses Not on filedocumented in this encounter Additional Health Concerns Assessment Noted Time PHQ-9 Depression Total Score: 0 03/20/20 9:55 AM EDT documented as of this encounter Care Teams Office Associate Relationship Specialty Start Date End Date Name, MD Henri [address] [place] [address] PCP - General Family Medicine 03/17/21 documented as of this encounter
[2024-09-15 16:35] LABS: Alanine Aminotransferase 24 U/L (0-40); Albumin Level 4.4 g/dL (3.5-5.0); Alkaline Phosphatase 69 U/L (39-117); Anion Gap 12 (12-20); Aspartate Amino Transferase 27 U/L (5-37); Bilirubin Total 0.3 mg/dL (0.0-1.0); Blood Urea Nitrogen 17 mg/dL (9-16); Calcium 9.5 mg/dL (8.4-10.2); Carbon Dioxide 25 mmol/L (22-29); Chloride 107 mmol/L (96-108); Estimated Glomerular Filt Rate > 60; Glucose Random 130 mg/dL (60-115); Potassium 4.3 mmol/L (3.3-5.1); Sodium 140 mmol/L (135-145); Total Protein 7.7 g/dL (6.5-8.0)
== END 2024-09-15 14:15 | disposition home or self-care (01) ==
LOC: HO.HHCL 14:14
PROVIDERS: Visit Provider Nurse Practitioner Family
DX: R10.9 Unspecified abdominal pain (principal)
CPT/HCPCS: 36415; 80053

== ENCOUNTER 2024-09-24 11:00 | Outpatient (REF) | payer MEDICAID, SELFPAY ==
--- NOTE | ~2024-09-24 | CT_ITS ---
EXAMINATION: CT LOW-DOSE SCREENING CHEST WITHOUT CONTRAST CLINICAL INFORMATION: Nicotine dependence, uncomplicated, 46 pack years, current smoker, 59-year-old male. COMPARISON: Low dose lung screening 09/23/2023, and CT chest 11/21/2020. TECHNIQUE: Multidetector volumetric CT imaging of the chest is performed on a Siemens SOMATOM Definition scanner without contrast using low dose technique. Additional 2D coronal and sagittal reformatted images and axial 3D maximum intensity projection (MIP) images are generated on the CT workstation. This CT examination was performed using dose optimization techniques as appropriate, variously including the following: *Automated exposure control *Adjustment of mA and/or kV according to patient size (this includes techniques or standardized protocols for targeted exams where dose is matched to indication/reason for exam; i.e. extremities or head) *Use of iterative reconstruction technique FINDINGS: PULMONARY NODULES: -There is a 5 mm right middle lobe nodule (series 5, image 83), unchanged. -Average diameter 2 mm linear nodule in the left upper lobe medially (series 5, image 64), with pleural tag, consistent with intrapulmonary lymph node. This is unchanged. -5 mm nodule posterior left lower lobe, (series 5, image 101), unchanged. -3 mm nodule lateral left lower lobe (series 5, image 117), unchanged. -There are no new or enlarging nodules. LUNGS: -Mild linear scarring is present in the bilateral lower lobes right greater than left, as well as the lingula, stable findings. -There is mild centrilobular emphysema. -There is no evidence of interstitial lung disease. -Small airways are normal. -Central airways are normal. -No effusion or pneumothorax. -Calcified granuloma left costophrenic sulcus. MEDIASTINUM: -Normal thyroid. -No adenopathy or mass. -Normal aorta with minimal atheromatous calcification. No aneurysm. -Normal caliber main pulmonary artery. -Normal heart size. No pericardial effusion. -Esophagus is mildly patulous, without wall thickening. There may be a tiny type I hiatus hernia. CORONARY ARTERY CALCIFICATION: Mild three-vessel calcification present. CHEST WALL/AXILLA: Unremarkable. UPPER ABDOMEN: -Calcified granuloma in the right hepatic lobe. -Suspect 2 tiny 2 mm nonobstructing calculi in the superior right kidney. -Remainder of the imaged upper abdominal contents appear normal. OSSEOUS STRUCTURES: No suspicious focal findings. CT/CT lung screening IMPRESSION: 1. Stable 5 mm pulmonary nodules in the right middle lobe and left lower lobe. No new or enlarging pulmonary nodule. 2. Mild pulmonary emphysema. Stable bibasilar scarring. No active pulmonary disease. 3. Suspect tiny nonobstructing calculi in the superior right kidney. 4. Ancillary findings as discussed. ASSESSMENT: 1. Lung-RADS Category 2: Benign appearance or behavior of nodules. 2. Lung-RADS Category S: None. RECOMMENDATION: Continued routine annual low-dose CT lung screening in 1 year is recommended. An order for CT CHEST LOW DOSE CANCER SCREENING ([id number]) can be placed. Electronically signed by: Miguel Stratton MD 09/24/2024 11:47 AM MICHELLE
--- OUTSIDE RECORDS SUMMARY | 2024-09-24 13:12 | XMS_ITS | Encounter Summary ---
Author Organization [facility] Address [address] [place] [address] [facility] [place] [address] Care Team Providers Care Compliance Manager Name Role Phone Name, Henri HELMS Primary Care Provider [phone] Encounter Details Date Type Department Care Team (Latest Contact Info) Description 05/31/2021 Abstract [facility] CONVERSIONS Dental, Provider, DDS Social History Tobacco [...] Description 09/28/2024 1:00 PM EST Office Visit [facility] OPTOMETRY [address] [place] [address] Laurel Gomez, OD [address] [place] [address] 10/15/2024 10:30 AM EDT Office Visit [facility] ADULT DENTAL [address] [place] [address] Jalil Anglin DDS [address] [place] [address] 11/11/2024 10:30 AM EDT Office Visit [facility] MEDICINE [address] [place] [address] Name, MD Henri [address] [place] [address] 03/12/2025 1:00 PM EDT Office Visit [facility] ADULT DENTAL [address] [place], [place] [phone] Kai Rodriguezaris [address] [place] [address] documented as of this encounter Visit Diagnoses Not on filedocumented in this encounter Care Teams Compliance Manager Relationship Specialty Start Date End Date Name, MD Henri [address] [place] [address] PCP - General Family Medicine 03/17/21 documented as of this encounter
--- OUTSIDE RECORDS SUMMARY | 2024-09-24 13:12 | XMS_ITS | Encounter Summary ---
Author Organization [employer] Address [address] [facility] [address] [place] [address] Care Team Providers Care Bowling Pin Setters Installer Name Role Phone Name, Henri HELMS Primary Care Provider [phone] Encounter Details Date Type Department Care Team (Late st Contact Info) Description 09/24/2024 Orders Only [facility] External Provider, [facility] Social History Tobacco Use Types Packs/Day Years [...] Description 09/28/2024 1:00 PM EST Office Visit [facility] OPTOM[facility]RY [address] [place] [address] Laurel Gomez, OD [address] [place] [address] 10/15/2024 10:30 AM EDT Office Visit [facility] ADULT DENTAL [address] [place] [address] Jalil Anglin DDS [address] [place] [address] 11/11/2024 10:30 AM EDT Office Visit [facility] [address] [place] [address] Name, MD Henri [address] [place] [address] 03/12/2025 1:00 PM EDT Office Visit [facility] AD[facility] [address] [place] [address] Rabia Rodriguez [address] [place] [address] documented as of this encounter Procedures Procedure Name Priority Date/Time Associated Diagnosis Comments LDCT LUNG SCREENING Routine 09/24/2024 1 1:09 AM EST documented in this encounter Results * CT Lung Screening Low dose (09/24/2024 11:09 AM EST) Anatomical Region Laterality Modality Lung Computed Tomogra phy 09/24/2024 11:0 9 AM EST Narrative 09/24/2024 11:50 AM EST ? [facility] ?[address] ?[place] [address] ? CT Scan Report ? Signed ? Patient: Abran,Francisco ?MR#: [id number] ? : 1965 ?Acct:[id number] ? Age/Sex: 59 / M ?ADM Date: 09/24/24 ? Loc: HO.CT ? Attending Dr: Gudelia Ash PA-C ? Ordering Physician: Gudelia Ash PA-C ?? Date of Service: 09/24/24 ?? Procedure(s): CT lung screening ?? Accession Number(s): [id number] ? cc: Gduelia Ash PA-C; Name,Henri HELMS ? Report Number: ?? [id number]: Total DLP = ?? 60.00 mGy-cm ?? EXAMINATION: ?? CT LOW-DOSE SCREENING CHEST WITHOUT CONTRAST ? CLINICAL INFORMATION: ?? Nicotine dependence, uncomplicated, 46 pack years, current smoker, ?? 59-year-old male. ? COMPARISON: ?? Low dose lung screening 09/23/2023, and CT chest 11/21/2020. ? TECHNIQUE: ?? Multidetector volumetric CT imaging of the chest is performed on a ?? Siemens SOMATOM Definition scanner without contrast using low dose ?? technique. Additional 2D coronal and sagittal reformatted images and ?? axial 3D maximum intensity projection (MIP) images are generated on the ?? CT workstation. ? This CT examination was performed using dose optimization techniques as ?? appropriate, variously including the following: ?? *Automated exposure control ?? *Adjustment of mA and/or kV according to patient size (this includes ?? techniques or standardized protocols for targeted exams where dose is ?? matched to indication/reason for exam; i.e. extremities or head) ?? *Use of iterative reconstruction technique ? FINDINGS: ? PULMONARY NODULES: ?? -There is a 5 mm right middle lobe nodule (series 5, image 83), ?? unchanged. ?? -Average diameter 2 mm linear nodule in the left upper lobe medially ?? (series 5, image 64), with pleural tag, consistent with intrapulmonary ?? lymph node. This is unchanged. ?? -5 mm nodule posterior left lower lobe, (series 5, image 101), ?? unchanged. ?? -3 mm nodule lateral left lower lobe (series 5, image 117), unchanged. ?? -There are no new or enlarging nodules. ? LUNGS: ?? -Mild linear scarring is present in the bilateral lower lobes right ?? greater than left, as well as the lingula, stable findings. ?? -There is mild centrilobular emphysema. ?? -There is no evidence of interstitial lung disease. ?? -Small airways are normal. ?? -Central airways are normal. ?? -No effusion or pneumothorax. ?? -Calcified granuloma left costophrenic sulcus. ? MEDIASTINUM: ?? -Normal thyroid. ?? -No adenopathy or mass. ?? -Normal aorta with minimal atheromatous calcification. No aneurysm. ?? -Normal caliber main pulmonary artery. ?? -Normal heart size. No pericardial effusion. ?? -Esophagus is mildly patulous, without wall thickening. There may be a ?? tiny type I hiatus hernia. ? CORONARY ARTERY CALCIFICATION: Mild three-vessel calcification present. ? CHEST WALL/AXILLA: Unremarkable. ? UPPER ABDOMEN: ?? -Calcified granuloma in the right hepatic lobe. ?? -Suspect 2 tiny 2 mm nonobstructing calculi in the superior right ?? kidney. ?? -Remainder of the imaged upper abdominal contents appear normal. ? OSSEOUS STRUCTURES: No suspicious focal findings. ? CT/CT lung screening ?? IMPRESSION: ?? 1. Stable 5 mm pulmonary nodules in the right middle lobe and left ?? lower lobe. No new or enlarging pulmonary nodule. ?? 2. Mild pulmonary emphysema. Stable bibasilar scarring. No active ?? pulmonary disease. ?? 3. Suspect tiny nonobstructing calculi in the superior right kidney. ?? 4. Ancillary findings as discussed. ? ASSESSMENT: ?? 1. Lung-RADS Category 2: Benign appearance or behavior of nodules. ? 2. Lung-RADS Category S: None. ? RECOMMENDATION: ?? Continued routine annual low-dose CT lung screening in 1 year is ?? recommended. An order for CT CHEST LOW DOSE CANCER SCREENING ([id number]) ?? can be placed. ? Electronically signed by: ??Miguel Stratton MD ??09/24/2024 11:47 AM EST RP ?? Workstation: [id number] ? Dictated By: ?Miguel Stratton MD ? Signed By: ?<Electronically signed by Miguel Stratton MD in OV> ?09/24/24 1147 ? DD/ 1109 ? TD/TT: 09/24/24 1123 ? Grocery Carrier: ? Procedure Note Donototisinterpreter, Image - 09/24/[address] [place] [id number] [address] Scan Report Signed Patient: Hang Osullivan#: [id number] : 1965Acct:[id number] Age/Sex: 59 / MADM Date: 09/24/24 Loc: HO.CT Attending Dr: Gudelia Ash PA-C Ordering Physician: Gudelia Ash PA-C Date of Service: 09/24/24 Procedure(s): CT lung screening Accession Number(s): [id number] cc: Gudelia Ash PA-C; Name,Henri HELMS Report Number: [id number]: Total DLP = 60.00 mGy-cm EXAMINATION: CT LOW-DOSE SCREENING CHEST WITHOUT CONTRAST CLINICAL INFORMATION: Nicotine dependence, uncomplicated, 46 pack years, current smoker, 59-year-old male. COMPARISON: Low dose lung screening 09/23/2023, and CT chest 11/21/2020. TECHNIQUE: Multidetector volumetric CT imaging of the chest is performed on a Siemens SOMATOM Definition scanner without contrast using low dose technique. Additional 2D coronal and sagittal reformatted images and axial 3D maximum intensity projection (MIP) images are generated on the CT workstation. This CT examination was performed using dose optimization techniques as appropriate, variously including the following: *Automated exposure control *Adjustment of mA and/or kV according to patient size (this includes techniques or standardized protocols for targeted exams where dose is matched to indication/reason for exam; i.e. extremities or head) *Use of iterative reconstruction technique FINDINGS: PULMONARY NODULES: -There is a 5 mm right middle lobe nodule (series 5, image 83), unchanged. -Average diameter 2 mm linear nodule in the left upper lobe medially (series 5, image 64), with pleural tag, consistent with intrapulmonary lymph node. This is unchanged. -5 mm nodule posterior left lower lobe, (series 5, image 101), unchanged. -3 mm nodule lateral left lower lobe (series 5, image 117), unchanged. -There are no new or enlarging nodules. LUNGS: -Mild linear scarring is present in the bilateral lower lobes right greater than left, as well as the lingula, stable findings. -There is mild centrilobular emphysema. -There is no evidence of interstitial lung disease. -Small airways are normal. -Central airways are normal. -No effusion or pneumothorax. -Calcified granuloma left costophrenic sulcus. MEDIASTINUM: -Normal thyroid. -No adenopathy or mass. -Normal aorta with minimal atheromatous calcification. No aneurysm. -Normal caliber main pulmonary artery. -Normal heart size. No pericardial effusion. -Esophagus is mildly patulous, without wall thickening. There may be a tiny type I hiatus hernia. CORONARY ARTERY CALCIFICATION: Mild three-vessel calcification present. CHEST WALL/AXILLA: Unremarkable. UPPER ABDOMEN: -Calcified granuloma in the right hepatic lobe. -Suspect 2 tiny 2 mm nonobstructing calculi in the superior right kidney. -Remainder of the imaged upper abdominal contents appear normal. OSSEOUS STRUCTURES: No suspicious focal findings. CT/CT lung screening IMPRESSION: 1. Stable 5 mm pulmonary nodules in the right middle lobe and left lower lobe. No new or enlarging pulmonary nodule. 2. Mild pulmonary emphysema. Stable bibasilar scarring. No active pulmonary disease. 3. Suspect tiny nonobstructing calculi in the superior right kidney. 4. Ancillary findings as discussed. ASSESSMENT: 1. Lung-RADS Category 2: Benign appearance or behavior of nodules. 2. Lung-RADS Category S: None. RECOMMENDATION: Continued routine annual low-dose CT lung screening in 1 year is recommended. An order for CT CHEST LOW DOSE CANCER SCREENING ([id number]) can be placed. Electronically signed by: Miguel Stratton MD 09/24/2024 11:47 AM EST Dictated By: Miguel Stratton MD Signed By: <Electronically signed by Miguel Stratton MD in OV> 09/24/24 1147 DD/ 1109 TD/TT: 09/24/24 1123 Grocery Carrier: [facility] External Provider IMG CT PROCEDURES Final Result documented in this encounter Visit Diagnoses Not on filedocumented in this encounter Additional Health Concerns Assessment Noted Time PHQ-9 Depression Total Score: 0 03/20/20 23 9:55 AM EDT documented as of this encounter Care Teams Bowling Pin Setters Installer Relationship Specialty Start Date End Date Name, MD Henri [address] [place] [address] PCP - General Family Medicine 03/17/21 documented as of this encounter
--- OUTSIDE RECORDS SUMMARY | 2024-09-24 13:12 | XMS_ITS | Clinical Summary ---
Author Organization [employer] Address [address] [facility] 7[address] [place] [address] Care Team Providers Care Stonehand Name Role Phone Name, Henri HELMS Primary Care Provider [phone] Allergies No known active allergies Medications lisinopril 10 MG tablet TAKE 1 TABLET BY MOUTH EVERY DAY FOR 90 DAYS 3 Active aspirin (Aspirin Low Dose) 81 MG EC tablet Take 1 tablet (81 mg) by mouth Once per day. 90 tablet 3 4 Active glucose blood (FREESTYLE LITE) test stripIndications:T ype 2 diabetes mellitus without complication, without long-term current use of insulin ([facility]) Use to test blood sugar up to twice daily 100 strip 11 4 Active metFORMIN (Glucophage) 1000 MG tablet Take 1 tablet (1,000 mg) by mouth with breakfast and with evening meal. 180 tablet 3 4 Active TRUEplus Lancets 33G [facility] Use to test blood sugar 2 time(s) [...] other than radiculopathy or spinal stenosis 09/15/2024 Assessment & Plan (09/15/2024 3:28 PM EST): Pt with acute on chronic back pain after moving furniture R>L side, Reviewed likely etiology of msk strain Prn muscle relaxer prescribed Return to clinic for failure to resolve or worsening symptoms Flank pain 09/15/2024 Assessment & Plan (09/15/2024 3:26 PM EST): Pt with CVA tenderness, however pain is consistent in quality with msk flares And pt recently moved heavy furniture No blood in urine or dysuria Comp ordered as pt is concerned about renal function generally Extruded tooth 06/04/2024 Emphysema of lung 10/16/2023 SHARMAINE (obstructive sleep apnea) 10/16/2023 Pulmonary nodules 10/16/2023 Former smoker 10/16/2023 Periodontal abscess 04/08/2023 Dental calculus 04/08/2023 Dental abscess 04/08/2023 Generalized gingival recession 04/08/2023 Missing teeth, acquired 04/08/2023 Renal cyst 11/26/2022 Dyslipidemia 09/25/2018 Essential hypertension 09/25/2018 Nicotine dependence 09/25/2018 Type 2 diabetes mellitus without complication Lung mass 09/25/2018 Overview (11/26/2022): Ct chest from 10/2020 at [facility]: IMPRESSION: Stable small calcified and noncalcified pulmonary nodules probably related to old granulomatous disease. Overweight 09/25/2018 Resolved Problems Problem Noted Date Diagnosed Date Resolved Date Chronic sinusitis 10/16/2023 10/16/2023 Smoker 10/16/2023 10/16/2023 Nicotine dependence, cigaret ro, uncomplicated 10/16/2023 10/16/2023 Tinea pedis 09/25/2018 10/16/2023 Encounters Date Type Department Care Team Description 09/24/2024 Orders Only [facility] External Provider, [facility] 09/22/2024 Travel 09/18/2024 Telephone [facility] [address] [place] [phone] Renuka Benites [place] Results 09/15/2024 1:40 PM EST Office Visit [facility] [address] [place] [phone] Afua Rivera NP Lumbar radiculopathy (Primary Dx); Flank pain 09/15/2024 Travel 09/15/2024 Telephone [facility] [address] [place] [phone] Henri Bolton MD Nurse Triage 09/03/[address] [address] NameHenri MD 07/03/[address] [address] Chandler Sánchez MA feb recall 07/03/[address] [address] Chandler Sánchez [place] feb recall from Last [...] Description 09/28/2024 1:00 PM EST Office Visit [facility] OPTOMETRY [address] [place] [address] Laurel Gomez, OD [address] [place] [address] 10/15/2024 10:30 AM EDT Office Visit [facility] ADULT DENTAL [address] [place] [address] Jalil Anglin DDS [address] [place] [address] 11/11/2024 10:30 AM EDT Office Visit [facility] MED[facility] [address] [place] [address] Name, MD Henri [address] [place] [address] 03/12/2025 1:00 PM EDT Office Visit [facility] ADULT DENTAL [address] [place] [address] Rabia Rodriguez [address] [place] [phone] Health Maintenance Due Date Last Done Comments Anal Pap 1965 CT Colonography 1965 FIT DNA/Cologuard 1965 FIT 1965 FOBT 1965 Sigmoidoscopy 1965 Hepatitis A Vaccines (1 of 2 - Risk 2-dose series) 1984 Dental Oral Exam 10/08/2023 04/08/2023, 12/12/2020 Depression Screening 03/20/2024 03/20/2023, 03/20/20 COVID-19 Vaccine ( season) 2024 05/18/2022, 11/15/2021, [...] 12/12/2020 Dental X-Ray: Full Mouth 04/09/2026 04/08/2023, 05/0 02/2019 Colonoscopy 09/25/2028 09/26/2023 Colorectal Cancer Screening [...] SCREENING Routine 09/24/2024 1 1:09 AM EST POCT URINALYSIS DIPSTICK Routine 09/15/2024 2:23 PM EST Flank pain COMPREHENSIVE METABOLIC PANEL Routine 09/15/2024 2:16 PM EST Flank pain Full PROPHYLAXIS - ADULT Routine 06/04/2024 1:00 PM EST Periodontal abscess Periodontal disease Generalized gingival recession BITEWINGS - 4 RADIOGRAPHIC IMAGES Routine 06/04/2024 1:00 PM EST Periodontal abscess Periodontal disease Generalized gingival recession Missing teeth, acquired ALBUMIN, RANDOM URINE W/CREATININE Routine 05/01/2024 9:30 AM EDT Type 2 diabetes mellitus without complication, without long-term current use of insulin ([facility]) LIPID PANEL, STANDARD Routine 05/01/2024 9:27 AM EDT Type 2 diabetes mellitus without complication, without long-term current use of insulin (CMS/HCC) POCT GLYCATED HEMOGLOBIN, TOTAL Routine 04/22/2024 10:00 AM EDT Type 2 diabetes mellitus without complication, without long-term current use of insulin (CMS/HCC) HIV 1/2 ANTIGEN/ANTIBODY, FOURTH GENERATION W/RFL Routine [...] Recently Relevant to Health Maintenance Results * CT Lung Screening Low dose (09/24/2024 11:09 AM EST) Anatomical Region Laterality Modality Lung Computed Tomogra phy 09/24/2024 11:0 9 AM EST Narrative 09/24/2024 11:50 AM EST ? [facility] ?[address] ?[place] [address] ? CT Scan Report ? Signed ? Patient: Abran,Francisco ?MR#: [id number] ? : 1965 ?Acct:[id number] ? Age/Sex: 59 / M ?ADM Date: 02/27/25 ? Loc: HO.CT ? Attending Dr: Gudelia Ash PA-C ? Ordering Physician: Gudelia Ash PA-C ?? Date of Service: 02/27/25 ?? Procedure(s): CT lung screening ?? Accession Number(s): [id number] ? cc: May,Gudelia Jose PA-C; Name,Henri HELMS ? Report Number: ?? [id number]: Total DLP = ?? 60.00 mGy-cm ?? [...] for CT CHEST LOW DOSE CANCER SCREENING ([id number]) ?? can be placed. ? Electronically signed by: ??Miguel Stratton MD ??09/24/2024 11:47 AM EST RP ?? Workstation: [id number] ? Dictated By: ?Miguel Stratton MD ? Signed By: ?<Electronically signed by Miguel Stratton MD in OV> ?09/24/24 1147 ? DD/ 1109 ? TD/TT: 09/24/24 1123 ? Music Education Director: ? Procedure Note Amelie, Image - 09/24/[address] [address] [address] Scan Report Signed Patient: Hang Osullivan#: [id number] : 1965Acct:[id number] Age/Sex: 59 / MADM Date: 09/24/24 Loc: HO.CT Attending Dr: Gudelia Ash PA-C Ordering Physician: Gudelia Ash PA-C Date of Service: 09/24/24 Procedure(s): CT lung screening Accession Number(s): [id number] cc: Gudelia Ash PA-C; Name,Henri Report Number: [id number]: Total DLP = 60.00 mGy-cm EXAMINATION: CT [...] for CT CHEST LOW DOSE CANCER SCREENING ([id number]) can be placed. Electronically signed by: Miguel Stratton MD 09/24/2024 11:47 AM EST Dictated By: Miguel Stratton MD Signed By: <Electronically signed by Miguel Stratton MD in OV> 09/24/24 1147 DD/ 1109 TD/TT: 09/24/24 1123 Music Education Director: [facility] External Provider IMG CT PROCEDURES Final Result * POCT urinalysis dipstick manually resulted (09/15/2024 [...] TEST ENTER/EDIT OR DERABLES Final Result * (ABNORMAL) Comprehensive Metabolic Panel (09/15/2024 2:16 PM EST) Sodium 140 135 - 145 mmol/L [facility] Potassium 4.3 3.3 - 5.1 mmol/L [facility] Chloride 107 96 - 108 mmol/L [facility] Carbon Dioxide 25 22 - 29 mmol/L [facility] Anion Gap 12 12 - 20 [facility] Urea Nitrogen (BUN) 17(H) 9 - 16 mg/dL [facility] Creatinine, Serum 0.72 0.5 - 1.4 mg/dL [facility] Estimated Glomerular Filt Rate >60 [facility] Comment:Chronic Kidney Disea se: Estimated GFR < 60 mL/min/[id number] Kidney Disease: Estimated GFR < 15 mL/min/1.73m2 Glucose 130(H) 60 - 115 mg/dL [facility] Calcium 9.5 8.4 - 10.2 mg/dL [facility] Bilirubin, Total 0.3 0.0 - 1.0 mg/dL [facility] Aspartate Amino Transferase 27 5 - 37 U/L [facility] Alanine Aminotransferase 24 0 - 40 U/L [facility] Total Protein 7.7 6.5 - 8.0 g/dL [facility] Albumin Level 4.4 3.5 - 5.0 g/dL [facility] Alkaline Phosphatase 69 39 - 117 U/L [facility] Blood Venous blood specimen / Unknown 09/15/2024 2:16 PM EST 09/15/2024 4:04 PM EST us Afua Rivera NP LAB BLOOD ORDERABLES Final Resul t [facility] [address] [place] [phone] * Albumin, Random Urine W/Creatinine (05/01/2024 9:30 AM EDT) Creatinine, Urine 121.55 mg/dL [facility] Microalbumin Urine 8.0 mg/L H [facility] Microalbum Creatinine Ratio Ur 6.5 <30 ug/mg cr [facility] Comment:Albumin/Creatinine R atio Reference Ranges: Normal: < 30 ug/mg creatinine Microalbuminuria: 30 - 300 ug/mg creatinineClinical Albuminuria: > 300 ug/mg creatinine Urine (Urine, Random) 05/01/2024 9:30 AM EDT 05/01/2024 11:17 AM EDT us Henri Bolton MD LAB URINE ORDERABLES Final Resul t [facility] [address] [place] [phone] * (ABNORMAL) Lipid Panel, Standard (05/01/2024 9:27 AM EDT) Triglycerides 132 <150 mg/dL [facility] Comment:Desirable Triglyceri de: less than 150 mg/dLBorderline High Triglyceride 150-199 mg/dLHigh Triglyceride: 200-499 mg/dLVery High Triglyceride: greater than or equal to 5OO mg/dL Cholesterol 118 <200 mg/dL [facility] Comment:Desirable Cholestero l: less than 200 mg/dLBorderline High Cholesterol: 200-239 mg/dLHigh Cholesterol: greater than 239 mg/dL LDL Cholesterol Calculated 59 <100 mg/dL [facility] Comment:Desirable LDL: less than 100 mg/dLNear Optimal/Above Optimal LDL: 110- 129 mg/dLBorderline High LDL: 130-159 mg/dLHigh LDL: 160-189 mg/dLVery High LDL: greater than or equal to 190 mg/dL HDL Cholesterol 33(L) >40 mg/dL [facility] Comment:Desirable HDL: great er than 40 mg/dL Note: This HDL assay may give artificially low results in patients with liver disease. Blood Venous blood specimen / Unknown 05/01/2024 9:27 AM EDT 05/01/2024 11:04 AM EDT us Henri Bolton MD LAB BLOOD ORDERABLES Final Resul t Performing Organization Address City/[facility]/ZIP Co de Phone Number [facility] [address] [place] [address] [phone] * (ABNORMAL) POCT HGB A1C (04/22/2024 10:00 AM EDT) Hemoglobin A1C 6.6(A) 4.0 - 6.0 % QC Media Lot # [id number] Lot# Expiration Date Blood 04/22/2024 10:0 0 AM EDT us Henri Bolton MD POINT OF CARE TEST ENTER/EDIT OR DERABLES Final Result * HIV-1/2 Antigen and Antibodies, Fourth Generation, with Reflexes (10/16/2023 10:29 AM EDT) HIV AB/AG Nonreactive Nonreactive [facility] Comment:HIV-1 p24 Ag and/or HIV-1/HIV-2 Ab not detected.A test result that is nonreactive does not exclude thepossibility of exposure to or infection with HIV-1 and/orHIV-2. Nonreactive results in this assay for individualswith prior exposure to HIV-1 and/or HIV-2 may be due toantigen and antibody levels that are below the limit ofdetection of this assay.The [employer] HIV Ag/Ab Combo assay result andsupplemental assay results should be interpreted inconjunction with the patient's clinical presentation,history and other laboratory results. If the results areinconsistent with clinical evidence, additional testing issuggested to confirm the result. Blood Venous blood specimen / Unknown 10/16/2023 10:29 AM EDT 10/16/2023 11:11 AM EDT Result [facility] us Henri Bolton MD LAB BLOOD ORDERABLES Final Resul t Performing Organization Address City/[facility]/ZIP Co de Phone Number [facility] [address] [place] [address] [phone] * (ABNORMAL) Hm Colonoscopy (09/26/2023) Colonoscopy Abnormal Normal, Abnormal, BIRADS 0 , BIRADS 1 , BIRADS 2, BIRADS 3 , BIRADS 4+ us Historical Provider HEALTH MAINTENANCE Final Result * HEPATITIS C AB W/REFL TO HCV RNA, QN, PCR (11/09/2020 8:16 AM EDT) HEPATITIS C ANTIBODY NON-REACT ALFRED NON-REACT ALFRED [facility] INDEX 0.01 <1.00 [facility] Comment: ?? HCV antibody was non-reactive. There is no laboratory ?? evidence of HCV infection. ?? In most cases, no further action is required. However, if recent HCV exposure is suspected, a test for HCV RNA (test code 52796) is suggested. ?? For additional information please refer to http://[place].Exajoule/faq/BQJ24l7 (This link is being provided for informational/ educational purposes only.) ?? 11/09/2020 8:16 AM EDT Historical Provider HISTORICAL/NON ORDERABLE LABS Final Result [facility] [address] from Last 3 Months or Most Recently Relevant to Health Maintenance Insurance [facility] C[place] ST[place] AD[place] Care Teams Stonehand Relationship Specialty Start Date End Date Name, MD Henri [address] [place] [address] PCP - General Family Medicine 03/17/21
--- OUTSIDE RECORDS SUMMARY | 2024-09-24 13:12 | XMS_ITS | Encounter Summary ---
Author Organization [employer] Address [address] [place] [address] 7 [place] [address] Care Team Providers Care Grain Unloader Machine Name Role Phone Name, Henri HELMS Primary Care Provider [phone] Reason for Visit * Reason Onset Date Comments Nurse Triage 09/15/2024 Encounter Details Date Type Department Care Team ([facility] st Contact Info) Description 09/15/2024 Telephone [facility] [address] [place], [place] [phone] Name, MD Henri [address] [place] [address] Nurse Triage Social History Tobacco Use Types [...] caller accepted this outcome. Contact pt at [phone] documented in this encounter Plan of Treatment Upcoming Encounters Date Type Department Care Team (Late st Contact Info) Description 09/28/2024 1:00 PM EST Office Visit [facility] [address] [place] [address] Laurel Gomez, OD [address] [place] [address] 10/15/2024 10:30 AM EDT Office Visit [facility]ULT [facility] [address] [place] [address] Jalil Anglin DDS [address] [place] [address] 11/11/2024 10:30 AM EDT Office Visit [facility] [address] [place] [address] Henri Bolton MD [address] [place] [address] 03/12/2025 1:00 PM EDT Office Visit [facility] [address] [place] [address] Rabia Rodriguez [address] [place] [address] documented as of this encounter Visit Diagnoses Not on filedocumented in this encounter Additional Health Concerns Assessment Noted Time PHQ-9 Depression Total Score: 0 03/20/20 23 9:55 AM EDT documented as of this encounter Care Teams Grain Unloader Machine Relationship Specialty Start Date End Date Henri Bolton MD [address] [place] [address] PCP - General Family Medicine 03/17/21 documented as of this encounter
--- OUTSIDE RECORDS SUMMARY | 2024-09-24 13:12 | XMS_ITS | Encounter Summary ---
Author Organization [employer] Address [address] [facility] 7t [place] [address] Care Team Providers Care Returner Name Role Phone Name, Henri HELMS Primary Care Provider [phone] Encounter Details Date Type Department Care Team (Latest Contact Info) Description 09/15/2024 1:40 PM EST Office Visit [facility] [address] [place], [place] [phone] Afua Rivera NP [address] [place], [place] [phone] Lumbar radiculopathy (Primary Dx); Flank pain Social [...] 1:34 PM EST documented in this encounter Progress Notes * Afua Rivera, ILDA - 09/15/2024 1:40 PM EST Subjective: Francisco Osullivan is a 59 y.o. male who presents to the office for a sick visit. HPI Answers submitted by the patient for this visit: Back Pain Questionnaire (Submitted on 09/15/2024) Chief Complaint: Back pain Chronicity: chronic Onset: more than 1 year ago Frequency: constantly Progression since onset: waxing and waning Pain location: lumbar spine Pain quality: burning Radiates to: left thigh, right thigh Pain - numeric: 10/10 Pain is: the same all the time Aggravated by: sitting Stiffness is present: all day bladder incontinence: No bowel incontinence: No leg pain: Yes perianal numbness: No paresis: Yes pelvic pain: Yes paresthesias: No tingling: No weight loss: No Has always had this condition, herniated discs, always have that pain, but in the last 2 days, it got worse, very strong Went to see his daughter and was moving furniture, Has occurred before , when strains or overdoes activities, this can happen Rest and medication has helped Was prescribed a medication with codeine but pt does not like this medication Worry today, is that it is something related to kidneys, Urinating clear and frequently, Right side pain, more than left, sharp pain , strong feels similar Patient Active Problem List Diagnosis Dyslipidemia Essential hypertension Nicotine dependence Renal cyst Type 2 diabetes mellitus without complication (CMS/HCC) Lung mass Overweight Periodontal abscess Dental calculus Dental abscess Generalized gingival recession Missing teeth, acquired Emphysema of lung (CMS/HCC) SHARMAINE (obstructive sleep apnea) Pulmonary nodules Former smoker Extruded tooth Low back pain associated with a spinal disorder other than radiculopathy or spinal stenosis Flank pain Review of Systems Constitutional: Negative for fever. Cardiovascular: Negative for chest pain. Gastrointestinal: Negative for abdominal pain. Genitourinary: Negative for dysuria. Musculoskeletal: Positive for back pain. Neurological: Negative for weakness, numbness and headaches. No Known Allergies Lab Results Component Value Date GLUCOSE 122 (H) 05/01/2024 NA 142 05/01/2024 K 4.4 05/01/2024 CO2 26 05/01/2024 CL 106 05/01/2024 BUN 13 05/01/2024 CREATININE 0.75 05/01/2024 Objective: Visit Vitals BP (!) 160/82 (BP Location: Left arm, Patient Position: Sitting, BP Cuff Size: Adult) Pulse 78 Temp 98.4 ??F (36.9 ??C) (Oral) Resp 18 Ht 6' 2 (1.88 m) Wt 214 lb 6.4 oz (97.3 kg) BMI 27.53 kg/m?? Smoking Status Some Days BSA 2.25 m?? Physical Exam Vitals reviewed. Constitutional: Appearance: Normal appearance. HENT: Head: Normocephalic. Cardiovascular: Rate and Rhythm: Normal rate. Heart sounds: Normal heart sounds. Pulmonary: Breath sounds: Normal breath sounds. Abdominal: Palpations: Abdomen is soft. Tenderness: There is right CVA tenderness. Musculoskeletal: Cervical back: Neck supple. Neurological: Mental Status: He is alert. Psychiatric: Mood and Affect: Mood normal. Assessment/Plan: Problem List Items Addressed This Visit Low back pain associated with a spinal disorder other than radiculopathy or spinal stenosis - Primary Current Assessment & Plan Pt with acute on chronic back pain after moving furniture R>L side, Reviewed likely etiology of msk strain Prn muscle relaxer prescribed Return to clinic for failure to resolve or worsening symptoms Relevant Medications cyclobenzaprine (Flexeril) 10 MG tablet Flank pain Current Assessment & Plan Pt with CVA tenderness, however pain is consistent in quality with msk flares And pt recently moved heavy furniture No blood in urine or dysuria Comp ordered as pt is concerned about renal function generally Relevant Orders Comprehensive Metabolic Panel POCT urinalysis dipstick manually resulted (Completed) Current Outpatient Medications Medication Sig Dispense Refill aspirin (Aspirin Low Dose) 81 MG EC tablet Take 1 tablet (81 mg) by mouth Once per day. 90 tablet 3 atorvastatin (Lipitor) 40 MG tablet TAKE 1 TABLET BY MOUTH EVERY DAY 90 tablet 3 benzoyl peroxide (PanOxyl Foaming Wash) 10 % external wash Apply topically Once per day. 148 g 3 cetirizine (ZyrTEC) 10 MG tablet TAKE 1 TABLET BY MOUTH EVERY MORNING 90 tablet 1 cyclobenzaprine (Flexeril) 10 MG tablet Take 1 tablet (10 mg) by mouth if needed at bedtime for muscle spasms for up to 10 days. 10 tablet 0 fluticasone (Flonase) 50 MCG/ACT nasal spray INSTILL 2 SPRAYS IN EACH NOSTRIL ONCE DAILY IN THE MORNING, SHAKE GENTLY 48 g 0 glucose blood (FREESTYLE LITE) test strip Use to test blood sugar up to twice daily 100 strip 11 lisinopril 10 MG tablet TAKE 1 TABLET BY MOUTH EVERY DAY FOR 90 DAYS metFORMIN (Glucophage) 1000 MG tablet Take 1 tablet (1,000 mg) by mouth with breakfast and with evening meal. 180 tablet 3 salicylic acid-lactic acid 17 % external solution Apply topically Once per day. 9.8 mL 1 tamsulosin (Flomax) 0.4 MG 24 hr capsule TAKE 1 CAPSULE BY MOUTH EVERY DAY 1/2 HOUR FOLLOWING THE SAME MEAL EACH DAY 90 capsule 1 TRUEplus Lancets [facility] Use to test blood sugar 2 time(s) daily 100 each 11 No current facility-administered medications for this visit. Visit Conducted in: Bengali Translation by: Frederick Perez Musa Id #[id number] documented in this encounter Miscellaneous Notes * Assessment & Plan Note - Afua Rivera NP - 09/15/2024 3:27 PM ESTAssociated Problem(s): Low back pain associated with a spinal disorder other than radiculopathy or spinal stenosis Pt with acute on chronic back pain after moving furniture R>L side, Reviewed likely etiology of msk strain Prn muscle relaxer prescribed Return to clinic for failure to resolve or worsening symptoms * Assessment & Plan Note - Afua Rivera NP - 09/15/2024 3:26 PM ESTAssociated Problem(s): Flank pain Pt with CVA tenderness, however pain is consistent in quality with msk flares And pt recently moved heavy furniture No blood in urine or dysuria Comp ordered as pt is concerned about renal function generally documented in this encounter Plan of Treatment Upcoming Encounters Date Type Department Care Team (Late st Contact Info) Description 09/28/2024 1:00 PM EST Office Visit [facility] [address] [place] [address] Laurel Gomez, OD [address] [place] [address] 10/15/2024 10:30 AM EDT Office Visit [facility] [address] [place] [address] Jalil Anglin DDS [address] [place], [place] [phone] 11/11/2024 10:30 AM EDT Office [facility] [address] [place] [facility] [place] [address] Name, MD Henri [address] [place] [facility] [place] [place] [address] 03/12/2025 1:00 PM EDT Office [facility] [address] [place] [facility] [place], [place] [phone] Michael, Rabia [address] [place] [facility] [place], [place] [phone] documented as of this encounter Procedures Procedure Name Priority Date/Time Associated Diagnosis Comments POCT URINALYSIS DIPSTICK Routine 09/15/2024 2:23 PM EST Flank pain COMPREHENSIVE METABOLIC PANEL Routine 09/15/2024 2:16 PM EST Flank pain documented in this [...] EST) Sodium 140 135 - 145 mmol/L [facility] Potassium 4.3 3.3 - 5.1 mmol/L [facility] Chloride 107 96 - 108 mmol/L [facility] Carbon Dioxide 25 22 - 29 mmol/L [facility] Anion Gap 12 12 - 20 [facility] Urea Nitrogen (BUN) 17(H) 9 - 16 mg/dL [facility] Creatinine, Serum 0.72 0.5 - 1.4 mg/dL [facility] Estimated Glomerular Filt Rate >60 [facility] Comment:Chronic Kidney Disea se: Estimated GFR < 60 mL/min/1.13z7Tluava Kidney Disease: Estimated GFR < 15 mL/min/1.73m2 Glucose 130(H) 60 - 115 mg/dL [facility] Calcium 9.5 8.4 - 10.2 mg/dL [facility] Bilirubin, Total 0.3 0.0 - 1.0 mg/dL [facility] Aspartate Amino Transferase 27 5 - 37 U/L [facility] Alanine Aminotransferase 24 0 - 40 U/L [facility] Total Protein 7.7 6.5 - 8.0 g/dL [facility] Albumin Level 4.4 3.5 - 5.0 g/dL [facility] Alkaline Phosphatase 69 39 - 117 U/L [facility] Blood Venous blood specimen / Unknown 09/15/2024 2:16 PM EST 09/15/2024 4:04 PM EST us Afua Rivera [employer] [facility] BLOOD ORDERABLES Final Resul t [facility] [address] [place] [address] [phone] documented in this encounter Visit Diagnoses Diagnosis Lumbar radiculopathy- Primary Thoracic or lumbosacral neuritis or radiculitis, unspecified Flank pain Abdominal pain, unspecified site documented in this encounter Additional Health Concerns Assessment Noted Time PHQ-9 Depression Total Score: 0 03/20/20 23 9:55 AM EDT documented as of this encounter Care Teams Returner Relationship Specialty Start Date End Date Name, MD Henri [address] [place] [address] PCP - General Family Medicine 03/17/21 documented as of this encounter
--- OUTSIDE RECORDS SUMMARY | 2024-09-24 13:12 | XMS_ITS | Encounter Summary ---
Author Organization [employer] Address [address] [facility] 7 [place] [address] Care Team Providers Care Shear Operator Helper Name Role Phone Name, Henri HELMS Primary Care Provider [phone] Reason for Visit * Reason Comments Med Refill Encounter Details Date Type Department Care Team ([facility] Contact Info) Description 09/03/2024 Refill [facility] [address] [place], [place] [phone] Name, MD Henri [address] [place] [address] Social History Tobacco Use Types Packs/Day Years [...] Description 09/28/2024 1:00 PM EST Office Visit [facility] OPT[facility] [address] [place] [address] Jason, Laurel, OD [address] [place] [address] 10/15/2024 10:30 AM EDT Office Visit [facility] [address] [place] [address] Jalil Anglin DDS [address] [place] [address] 11/11/2024 10:30 AM EDT Office Visit [facility] [address] [place] [address] Name, MD Henri [address] [place] [address] 03/12/2025 1:00 PM EDT Office Visit [facility] [address] [place] [address] Rabia Rodriguez [address] [place] [address] documented as of this encounter Visit Diagnoses Not on filedocumented in this encounter Additional Health Concerns Assessment Noted Time PHQ-9 Depression Total Score: 0 03/20/20 23 9:55 AM EDT documented as of this encounter Care Teams Shear Operator Helper Relationship Specialty Start Date End Date Name, MD Henri [address] [place] [address] PCP - General Family Medicine 03/17/21 documented as of this encounter
--- OUTSIDE RECORDS SUMMARY | 2024-09-24 13:12 | XMS_ITS | Encounter Summary ---
Author Organization [employer] Address [address] [facility] 7 [place] [address] Care Team Providers Care Mold Holder Name Role Phone Name, Henri HELMS Primary Care Provider [phone] Reason for Visit * Reason Onset Date Comments Appointment Request 04/17/2024 Encounter Details Date Type Department Care Team ([facility] Contact Info) Description 04/17/2024 Telephone [facility] [address] [place], [place] [phone] Name, MD Henri [address] [place] [address] Appointment Request Social History Tobacco Use Types [...] Description 09/28/2024 1:00 PM EST Office Visit [facility] [address] [place] [address] Jason, Laurel, OD [address] [place] [address] 10/15/2024 10:30 AM EDT Office Visit [facility] [address] [place] [address] Jalil Anglin DDS [address] [place] [address] 11/11/2024 10:30 AM EDT Office Visit [facility] [address] [place] [address] Name, MD Henri [address] [place] [address] 03/12/2025 1:00 PM EDT Office Visit [facility] [address] [place] [address] Michael, Rabia [address] [place] [address] documented as of this encounter Visit Diagnoses Not on filedocumented in this encounter Additional Health Concerns Assessment Noted Time PHQ-9 Depression Total Score: 0 03/20/20 9:55 AM EDT documented as of this encounter Care Teams Mold Holder Relationship Specialty Start Date End Date Name, MD Henri [address] [place] [address] PCP - General Family Medicine 03/17/21 documented as of this encounter
--- OUTSIDE RECORDS SUMMARY | 2024-09-24 13:12 | XMS_ITS | Encounter Summary ---
Author Organization [employer] Address [address] [place] [address], [place] [address] Care Team Providers Care Load Dropper Name Role Phone Name, Henri HELMS Primary Care Provider [phone] Encounter Details Date Type Department Care Team (Late st Contact Info) Description 02/25/2023 Orders Only [facility] [address] [place], [place] [phone] Iona Mcgraw MD [address] [place] [address] Skin ulcer, unspecified ulcer stage (CMS/HCC) (Primary [...] Description 09/28/2024 1:00 PM EST Office Visit [facility] OPTOMETRY [address] [place], [place] [phone] Jason, Laurel, OD [address] [place] [address] 10/15/2024 10:30 AM EDT Office Visit [facility] ADULT DENTAL [address] [place] [address] Jalil Anglin DDS [address] [place] [address] 11/11/2024 10:30 AM EDT Office Visit [facility] MED[facility] [address] [place] [address] Name, MD Henri [address] [place] [address] 03/12/2025 1:00 PM EDT Office Visit [facility] ADULT DENTAL [address] [place] [address] Rabia Rodriguez [address] [place] [address] documented as of this encounter Visit Diagnoses Diagnosis Skin ulcer, unspecified ulcer stage (CMS/[facility])- Primary documented in this encounter Care Teams Load Dropper Relationship Specialty Start Date End Date NameHenri MD [address] [place] [address] PCP - General Family Medicine 03/17/21 documented as of this encounter
--- OUTSIDE RECORDS SUMMARY | 2024-09-24 13:12 | XMS_ITS | Continuity of Care Document ---
Author Organization [place] - [facility], [facility] Address [address] [place] [address] Care Team Providers Care Grounds And Nursery Specialist Name Role Phone NAME, CHESTER Primary Care Provider [phone] Assessment Encounter Date Assessment Date Assessment LastModified by Organization Details LastModified Time 09/23/2024 09/23/2024 59-year-old male presents with for evaluation of nasal congestion. He has been using Azelastine and Cetirizine with moderate relief. Nasal examination demonstrates inferior turbinate hypertrophy, right septal deviation, and mucoid rhinorrhea. CT sinus today was negative for nasal obstruction or sinusitis. Recommend allergy testing and trial of Flonase 2 sprays in each nostril daily. Patient will trial Fexofenadine, as he reports Cetirizine induces drowsiness. He will continue intranasal Azelastine. Will be in touch with allergy test results. [email or web address] Not available 09/23/2024 14:15:30 Plan of Treatment Reminders Order Date Submit Date Provider Last Modified By Organization Details Last Modified Time Details Appointments None recorded. Lab None recorded. Referral None recorded. Procedures allergy testing, skin prick (PROC) 2024 025 [email or web address] Not available 5 08:41:49 intraderma l allergy skin testing (PROC) 2024 025 [email or web address] Not available 5 08:41:49 pulmonary function test procedure (PROC) 2024 025 [email or web address] Not available 5 08:41:49 pulse oximetry (PROC) 2024 025 [email or web address] Not available 5 08:41:49 Surgeries None recorded. Imaging CT, sinuses, w/o contrast 2024 025 [facility], [address] [place] [address], [id number], 5 14:46:26 Medication Orders fexofenadi ne 180 mg tablet 2024 025 [facility], [address] [place] [address], [id number], 5 11:35:53 fluticason e propionate 50 mcg/actuat ion nasal spray,susp ension 2024 025 [facility], [address] [place] [address], [id number], 5 11:35:54 azelastine 137 mcg (0.1 %) nasal spray 2024 025 [facility], [address] [place] [address], [id number], 5 15:22:09 Patient TargetsNo targets recorded. Patient InstructionsNo instructions recorded. Reason for Referral None Reported. Results Created Date Observation Date Name Description Value Unit Range Abnormal Flag Note LastModifiedBy Organization Detail LastModifiedTime 09/23/[address], sinus es, w/o contr ast No observ ation record ed. [email or web address] [facility] [address], [phone], 09/23/2024 13:34:17 Result Notes None recorded. Problems Name Problem SNOMED Code Status Onset Date Resolution Date Notes Provider Name and Address Organization Details Recorded Time Allergic rhinitis 65134014 Active 024 WALDO ASHLEY MD [address] [place] [address], [place], [phone] , [facility] - [facility] 4 10:38:25 Deviated nasal septum [id number] Active 024 WALDO ASHLEY MD [address] [address], [place], [address] , [facility] - [facility] 10:41:00 Problem Notes None recorded. Procedures Surgical History None recorded. Imaging Results Imaging Date Name Status LastModified by Organiz ation Details LastModified Time 09/23/2024 CT, sinuses, w/o contrast completed [facility] [address], [place], [phone], 09/23/2024 13:34:17 Procedure Notes None recorded. Medical Equipment None Reported. Allergies No known drug allergies Medications Name Sig Start Date Stop Date Status Note LastModified by Organization Details LastModified Time cyclobenzap rine 10 mg tablet TAKE 1 TABLET BY MOUTH AT BEDTIME FOR MUSCLE SPASMS FOR UP TO 10 DAYS active Not Available Not Available No t Available atorvastati n 40 mg tablet TAKE 1 [...] completed Not Available Not Available Not Available fexofenadin e 180 mg tablet Take 1 tablet every day by oral route, for seasonal allergies , nasal congestio n. 2024 active Not Available Not Available Not Avai lable aspirin 81 mg tablet,tony yed release TAKE [...] azelastine 137 mcg (0.1 %) nasal spray [place] 2 sprays twice a day by intranasa l route, for seasonal allergies , nasal congestio n. 2024 active Not Available Not Available Not Avai lable fluticasone propionate 50 mcg/actuati on nasal spray,suspe nsion [place] 2 sprays every day by intranasa l route, for nasal congestio n. 2024 active Not Available Not Available Not Avai lable doxycycline hyclate 100 mg tablet TAKE 1 TABLET BY MOUTH TWICE DAILY FOR 10 DAYS active Not Available Not Available No t Available nicotine 7 mg/24 hr daily transdermal patch Apply 1 patch every day by transderm al route. active Not Available Not Available No t Available tadalafil 20 mg tablet TAKE 1 TABLET BY MOUTH EVERY DAY NEEDED active Not Available Not Available No t [...] DIRECTED TO CHECK BLOOD SUGAR TWICE DAILY active Not Available Not Available No t Available Vitals Date Recorded Body height Provider Name an d Address Organization Details Last Updated DateTime 09/23/2024 190.5 cm Latasha Fatima [place] - [facility] 09/23/2024 13:46:33 Social History None recorded. Functional Status None recorded. Mental Status None recorded. Family History Nothing Reported. Medical History Condition Response Diabetes Y Cancer N Kidney Disease Y High Cholesterol Y Past Encounters Encounter ID Performer Location Encounter Start Date Encounter Closed Date Diagnosis/Indication Diagnosis SNOMED-CT Code Diagnosis ICD10 Code Diagnosis Note [id number] WALDO ASHLEY MD [facility] [address] [place] [address] 09/23/2024 13:20:49 09/23/2024 14:46:26 Chronic rhinitis 91726120 J31.0 Allergic rhinitis 484967 04 J30.9 Health Concerns Section Related Observation LastModified by Organization Detai ls LastModified Time None Recorded Concern Status LastModified by Organization Details LastModified Time None Recorded Payers Encounter Date Sequence Insurance Name Policy Number Policy [place] Covered Member ID [place] Member ID Guarantor Name 09/23/2024 1 [place] [facility] Francisco Osullivan [id number] Francisco Osullivan Notes Date Note Type Note Provider Name and Address Organization Details Recorded Time 09/23/2024 text/html left side conges tion, pressure, he trialed astelin improvement oral antihistamine?formal allergy testingfrequent sneezingno facial pruritus Patient with chronic nasal obstruction predominantly on [...] arrange for a CT of the sinuses WALDO REN MD [address] [place] [address], [phone], [facility] - [facility] 09/23/2024 14:25:50
--- OUTSIDE RECORDS SUMMARY | 2024-09-24 13:12 | XMS_ITS | Encounter Summary ---
Author Organization [employer] Address [address] [facility] 7 [place] [address] Care Team Providers Care Manager Of Compensation Name Role Phone Name, Henri HELMS Primary Care Provider [phone] Reason for Visit * Reason Comments Med Refill Encounter Details Date Type Department Care Team ([facility] Contact Info) Description 07/23/2023 Refill [facility] MEDICINE [address] [place], [place] [phone] Name, MD Henri [address] [place] [address] Social History Tobacco Use Types Packs/Day Years [...] Description 09/28/2024 1:00 PM EST Office Visit [facility] OPTOMETRY [address] [place] [address] JasonLaurel oconnor, OD [address] [place] [address] 10/15/2024 10:30 AM EDT Office Visit [facility] ADULT DENTAL [address] [place] [address] Jalil Anglin DDS [address] [place] [address] 11/11/2024 10:30 AM EDT Office Visit [facility] MEDICINE [address] [place] [address] Henri Bolton MD [address] [place] [address] 03/12/2025 1:00 PM EDT Office Visit [facility] ADULT DENTAL [address] [place] [address] Kai Rodriguezaris [address] [place] [address] documented as of this encounter Visit Diagnoses Not on filedocumented in this encounter Additional Health Concerns Assessment Noted Time PHQ-9 Depression Total Score: 0 03/20/20 9:55 AM EDT documented as of this encounter Care Teams Manager Of Compensation Relationship Specialty Start Date End Date NameHenri MD [address] [place] [address] PCP - General Family Medicine 03/17/21 documented as of this encounter
--- OUTSIDE RECORDS SUMMARY | 2024-09-24 13:12 | XMS_ITS | Encounter Summary ---
Author Organization [employer] Address [address] [place] [address] Care Team Providers Care Etcher Electrolytic Name Role Phone Name, Henri HELMS Primary Care Provider [phone] Reason for Visit * Reason Comments Med Refill Encounter Details Date Type Department Care Team (Late st Contact Info) Description 01/21/2023 Refill [facility] MEDICINE [address] [place] [address] Jarrett Peters MD [address] [place] [address] Mixed hyperlipidemia Social History Tobacco Use Types [...] Description 09/28/2024 1:00 PM EST Office Visit [facility] OPTOMETRY [address] [place] [address] Laurel Gomez, OD [address] [place] [address] 10/15/2024 10:30 AM EDT Office Visit [facility] ADULT DENTAL [address] [place] [address] Jalil Anglin DDS [address] [place] [address] 11/11/2024 10:30 AM EDT Office Visit [facility] MEDICINE [address] [place] [address] Name, MD Henri [address] [place] [address] 03/12/2025 1:00 PM EDT Office Visit [facility] ADULT DENTAL [address] [place] [address] Rabia Rodriguez [address] [place] [address] documented as of this encounter Visit Diagnoses Diagnosis Mixed hyperlipidemia documented in this encounter Care Teams Etcher Electrolytic Relationship Specialty Start Date End Date Name, MD Henri [address] [place] [address] PCP - General Family Medicine 03/17/21 documented as of this encounter
--- OUTSIDE RECORDS SUMMARY | 2024-09-24 13:12 | XMS_ITS | Encounter Summary ---
Author Organization [employer] Address [address] [facility] 7 [place] [address] Care Team Providers Care Management Professionals Name Role Phone Name, Henri HELMS Primary Care Provider [phone] Reason for Visit * Reason Onset Date Comments Results 09/18/2024 Encounter Details Date Type Department Care Team ([facility] st Contact Info) Description 09/18/2024 Telephone [facility] MEDICINE [address] [place], [place] [phone] Renuka Benites [place] Results Social History Tobacco Use Types Packs/Day Years [...] encounter Miscellaneous Notes * Telephone Encounter - Renuka Benites [place] - 09/18/2024 2:28 PM EST Related information to Pt daughter. Daughter was with Pt they understood. * Telephone Encounter - Renuka Benites [place] - 09/18/2024 2:28 PM EST ----- Message from Afua Rivera sent at 09/18/2024 9:06 AM EST ----- Please let pt know his labs and kidney function are normal thank you ----- Message ----- From: Loc Fuchs [place] Sent: 09/15/2024 2:24 PM EST To: Afua Rivera NP documented in this encounter Plan of Treatment Upcoming Encounters Date Type Department Care Team (Late st Contact Info) Description 09/28/2024 1:00 PM EST Office Visit [facility] OPTOMETRY [address] [place] [address] Laurel Gomez, OD [address] [place] [address] 10/15/2024 10:30 AM EDT Office Visit [facility] ADULT DENTAL [address] [place] [address] Jalil Anglin DDS [address] [place] [address] 11/11/2024 10:30 AM EDT Office Visit [facility] MEDICINE [address] [place] [address] Henri Bolton MD [address] [place] [address] 03/12/2025 1:00 PM EDT Office Visit [facility] ADULT DENTAL [address] [place] [address] Rabia Rodriguez [address] [place] [address] documented as of this encounter Visit Diagnoses Not on filedocumented in this encounter Additional Health Concerns Assessment Noted Time PHQ-9 Depression Total Score: 0 03/20/20 9:55 AM EDT documented as of this encounter Care Teams Management Professionals Relationship Specialty Start Date End Date Name, [place] [address] PCP - General Family Medicine 03/17/21 documented as of this encounter
--- OUTSIDE RECORDS SUMMARY | 2024-09-24 13:12 | XMS_ITS | Encounter Summary ---
Author Organization [employer] Address [address] [facility] 7t [place] [address] Care Team Providers Care Radar Systems Engineer Name Role Phone Name, Henri HELMS Primary Care Provider [phone] Encounter Details Date Type Department Care Team [...] Description 09/28/2024 1:00 PM EST Office Visit [facility] OPTOMETRY [address] [place] [address] JasonChandanan, OD 230 [place] [address] 10/15/2024 10:30 AM EDT Office Visit [facility] ADULT DENTAL [address] [place] [address] Jalil Anglin, DDS 230 [place] [address] 11/11/2024 10:30 AM EDT Office Visit [facility] MEDICINE [address] [place] [address] Henri Bolton MD 230 [place] [address] 03/12/2025 1:00 PM EDT Office Visit [facility] ADULT DENTAL [address] [place] [address] Kai Rodriguezaris [address] [place] [address] documented as of this encounter Visit Diagnoses Not on filedocumented in this encounter Additional Health Concerns Assessment Noted Time PHQ-9 Depression Total Score: 0 03/20/20 23 9:55 AM EDT documented as of this encounter Care Teams Radar Systems Engineer Relationship Specialty Start Date End Date Henri Bolton MD [address] [place] [address] PCP - General Family Medicine 03/17/21 documented as of this encounter
--- OUTSIDE RECORDS SUMMARY | 2024-09-24 13:12 | XMS_ITS | Encounter Summary ---
Author Organization [employer] Address [address] [place] [address] 7 [place] [address] Care Team Providers Care Job Press Feeder Name Role Phone Name, Henri HELMS Primary Care Provider [phone] Encounter Details Date Type Department Care Team (Late st Contact Info) Description 01/22/2023 Orders Only [facility] [address] [place], [place] [phone] Nelsy Sosa LPN Social History Tobacco Use [...] 09/28/2024 1:00 PM EST Office Visit [facility] OPTOMETRY [address] [place] [address] Jason, Laurel, OD 230 [place] [address] 10/15/2024 10:30 AM EDT Office Visit [facility] ADULT DENTAL [address] [place] [address] Jalil Anglin DDS [address] [place] [address] 11/11/2024 10:30 AM EDT Office Visit [facility] MEDICINE [address] [place] [address] Name, MD Henri 230 [place] [address] 03/12/2025 1:00 PM EDT Office Visit [facility] ADULT DENTAL [address] [place] [address] Rabia Rodriguez [address] [place] [address] documented as of this encounter Visit Diagnoses Not on filedocumented in this encounter Care Teams Job Press Feeder Relationship Specialty Start Date End Date Name, MD Henri [address] [place] [address] PCP - General Family Medicine 03/17/21 documented as of this encounter
--- OUTSIDE RECORDS SUMMARY | 2024-09-24 13:12 | XMS_ITS | Encounter Summary ---
Author Organization [employer] Address [address] [place] [address] [address], [place] [address] Care Team Providers Care Product Sales Engineer Name Role Phone Name, Henri HELMS Primary Care Provider [phone] Encounter Details Date Type Department Care Team (Late Contact Info) Description 04/11/2023 Abstract [facility] ADULT DENTAL [address] [place] [address] Michael Rabia [address] [place] [address] Social History Tobacco Use Types Packs/Day Years [...] Description 09/28/2024 1:00 PM EST Office Visit [facility] OPTOMETRY [address] [place] [address] JasonLaurel oconnor, OD [address] [place] [address] 10/15/2024 10:30 AM EDT Office Visit [facility] ADULT DENTAL [address] [place] [address] Jalil Anglin DDS [address] [place] [address] 11/11/2024 10:30 AM EDT Office Visit [facility] MEDICINE [address] [place] [address] Name, MD Henri [address] [place] [address] 03/12/2025 1:00 PM EDT Office Visit [facility] ADULT DENTAL [address] [place] [address] Rabia Rodriguez [address] [place] [address] documented as of this encounter Visit Diagnoses Not on filedocumented in this encounter Additional Health Concerns Assessment Noted Time PHQ-9 Depression Total Score: 0 03/20/20 9:55 AM EDT documented as of this encounter Care Teams Product Sales Engineer Relationship Specialty Start Date End Date Name, MD Henri [address] [place] [address] PCP - General Family Medicine 03/17/21 documented as of this encounter
--- OUTSIDE RECORDS SUMMARY | 2024-09-24 13:12 | XMS_ITS | Encounter Summary ---
Author Organization [facility] Address [address] [place] [address] [place] [address] Care Team Providers Care Vegetable Farm Worker Name Role Phone Name, Henri HELMS Primary Care Provider [phone] Encounter Details Date Type Department Care Team (Late Contact Info) Description 04/26/2023 Abstract [facility] ADULT DENTAL [address] [place] [address] Jalil Anglin DDS [address] [place] [address] Social History Tobacco Use Types Packs/Day Years [...] Description 09/28/2024 1:00 PM EST Office Visit [facility] OPTOMETRY [address] [place] [address] Laurel Gomez, OD [address] [place] [address] 10/15/2024 10:30 AM EDT Office Visit [facility] ADULT DENTAL [address] [place] [address] Jalil Anglin DDS [address] [place] [address] 11/11/2024 10:30 AM EDT Office Visit [facility] MEDICINE [address] [place] [address] Henri Bolton MD [address] [place] [address] 03/12/2025 1:00 PM EDT Office Visit [facility] ADULT DENTAL [address] [place] [address] Rabia Rodriguez [address] [place] [address] documented as of this encounter Visit Diagnoses Not on filedocumented in this encounter Additional Health Concerns Assessment Noted Time PHQ-9 Depression Total Score: 0 03/20/20 23 9:55 AM EDT documented as of this encounter Care Teams Vegetable Farm Worker Relationship Specialty Start Date End Date NameHenri MD [address] [place] [address] PCP - General Family Medicine 03/17/21 documented as of this encounter
--- OUTSIDE RECORDS SUMMARY | 2024-09-24 13:12 | XMS_ITS | Encounter Summary ---
Author Organization [employer] Address [address] [facility] [address] [place] [address] Care Team Providers Care Assistant Store Manager Name Role Phone Name, Henri HELMS Primary Care Provider [phone] Encounter Details Date Type Department Care Team (Latest Contact Info) Description 09/22/2024 Travel Social History Tobacco Use Types Packs/Day [...] [facility] OPTOMETRY [address] [place] [address] JasonChandanan, OD [address] [place] [address] 10/15/2024 10:30 AM EDT Office Visit [facility] ADULT DENTAL [address] [place] [address] Jalil Anglin, DDS [address] [place] [address] 11/11/2024 10:30 AM EDT Office Visit [facility] MEDICINE [address] [place] [address] Henri Bolton MD [address] [place] [address] 03/12/2025 1:00 PM EDT Office Visit [facility] ADULT DENTAL [address] [place] [address] Kai Rodriguezaris [address] [place] [address] documented as of this encounter Visit Diagnoses Not on filedocumented in this encounter Additional Health Concerns Assessment Noted Time PHQ-9 Depression Total Score: 0 03/20/20 23 9:55 AM EDT documented as of this encounter Care Teams Assistant Store Manager Relationship Specialty Start Date End Date Henri Bolton MD [address] [place] [address] PCP - General Family Medicine 03/17/21 documented as of this encounter
== END 2024-09-24 11:01 | disposition home or self-care (01) ==
LOC: HO.CT 11:00
PROVIDERS: PCP Internal Medicine Geriatric Medicine; Visit Provider Physician Assistant Medical
DX: Z12.2 Encounter for screening for malignant neoplasm of respiratory organs (principal); F17.210 Nicotine dependence, cigarettes, uncomplicated
CPT/HCPCS: 71271

== ENCOUNTER → 2024-09-24 11:02 | Outpatient (BNV) | payer MEDICAID, SELFPAY | PROVIDERS: PCP Internal Medicine Geriatric Medicine; Visit Provider Radiology Diagnostic Radiology | DX: F17.210 Nicotine dependence, cigarettes, uncomplicated (principal) | CPT/HCPCS: 71271 ==

== ENCOUNTER 2024-11-12 09:28 | Outpatient (REF) | payer MEDICAID, SELFPAY ==
--- OUTSIDE RECORDS SUMMARY | 2024-11-12 10:49 | XMS_ITS | Encounter Summary ---
Author Organization [employer] [facility] Address [address] [place] [address] 7 [place] [address] Care Team Providers Care Screwdown Operator Name Role Phone Name, Henri HELMS Primary Care Provider [phone] Encounter Details Date Type Department Care Team (Late st Contact Info) Description 04/11/2023 Abstract [facility] ADULT DENTAL [address] [place] [address] Kai Rodriguezaris [address] [place] [address] Social History Tobacco Use Types Packs/Day Years [...] Care Team (Late st Contact Info) Description 03/12/2025 1:00 PM EDT Office Visit [facility] ADULT DENTAL [address] [place] [address] Michael Rabia [address] [place] [address] documented as of this encounter Visit Diagnoses Not on filedocumented in this encounter Additional Health Concerns Assessment Noted Time PHQ-9 Depression Total Score: 0 08/23/20 23 9:55 AM EDT documented as of this encounter Care Teams Screwdown Operator Relationship Specialty Start Date End Date Name, MD Henri [address] [place] [address] PCP - General Family Medicine 03/17/21 documented as of this encounter
--- OUTSIDE RECORDS SUMMARY | 2024-11-12 10:49 | XMS_ITS ---
Author Organization [facility] Address [facility] [address] [place] [address] Care Team Providers Care Wreath And Garland Maker Hand Name Role Phone CRAIG MATT HUANG Primary Care Provider Allergies No Known Allergies Results Component Value Reference Range Notes BMP Reviewed date:09/02/2024 05:35:00 AM Interpretation: Performing Lab: Notes/Report: BASIC METABOLIC PANEL BY VITROS 250 CKD STAGES: Col. Rachael. Med. P.R. ORDER [id number] PERFORMED AT: G1 >=90 G2 60-89 Pat. No.: [id number] [facility] en [place] G3a 45-59 G3b 30-44 Paid 5 Cents [facility] [address] G4 15-29 G5 <15 Exp: 09/25/2024 [place] [address] 1 NIFS Num: [id number] DIRECTOR: LINSEY LANGLEY LICENSE.: [id number] CLIA: [id number] GLUCOSE 104.00 74-99 MG/DL NA 140.00 136-145 MEQ/L K 5.10 3.5-5.1 MEQ/L CL 103.00 98-107 MEQ/L CO2 26.00 21-32 MEQ/L BUN 27.00 8-23 MG/DL CREAT 2.54 0.8-1.5 MG/DL BUN/CREATININE RATIO 10.63 10-25 CALCIUM 10.20 8.4-10.2 MG/DL AGAP 16.10 8-20 MEQ/L GFR AFRO AMERICANS ML 31.00 0-0 /MIN/1 73 GFR NON AF0-AMERICANS ML 27.00 0-0 /MIN/1 73 CBC + DIFF Reviewed date:09/02/2024 05:35:34 AM Interpretation: Performing Lab: Notes/Report: CBC Col. Rachael. Med. P.R. ORDER [id number] PERFORMED AT: Pat. No.: [id number] [facility] [place] Paid 5 Cents [facility] [address] 156 Exp: 09/25/2024 [place] [address] Num: [id number] DIRECTOR: LINSEY LANGLEY LICENSE.: [id number] CLIA: [id number] WHITE BLOOD COUNT 9.3 4-11 X10 RED BLOOD COUNT 4.21 4.5-6.5 X10 HEMOGLOBIN 13.3 14-18 g/dL HEMATOCRIT 38.7 42-52 % MCV 92.0 76-96 fL MCH 31.6 27-32 pg MCHC 34.4 31-35 g/dl RDW 12.8 11-16 % PLATELET COUNT 299 130-400 10 MPV 7.0 6-10 FL NE % 62.3 45-70 % LY % 26.8 20-40 % MO % 7.1 3-10 % EO % 3.4 1-5 % BA % 0.3 0-1 % NE # 5.8 2-7.5 x10 LY # 2.5 1.5-4 x10 MO # 0.7 0.2-0.8 x10 EO # 0.3 0-0.4 x10 BA # 0.0 0-0.1 x10 BY: DxH 560 RBC MORPHOLOGY 1 NIFS REASON FOR VISIT Paciente refiere: Siento calambres en las juan f, dolor en la espalda baja y mareos . Desde esta manana. Categoria MARITA olivares RN, BSN Lic.[id number], [place] 08/27/2024 08:06:13 PM > Medications Medication SIG (Take, Route, Fr equency, Duration) Notes Start Date End Date Status Tamsulosin HCl Activ e Atorvastatin Calcium Active metFORMIN HCl Active Aspirin 81 Active Lisinopril Active Clinton 3 Active Vital Signs Temperature 36.8 C 08/27/2024 Blood pressure systolic 120 mm Hg 08/27/19 25 Blood pressure diastolic 74 mm Hg 025 Heart Rate 75 /min 08/27/2024 Respiratory Rate 19 /min 08/27/2024 Height 74 in 08/27/2024 Weight 215 lbs 08/27/2024 BMI 27.6 kg/m2 08/27/2024 Oximetry 99 % 08/27/2024 Height-cm 187.96 cm 08/27/2024 Weight-kg 97.52 kg 08/27/2024 DAVID BRUCE RN, BSN Lic.[id number], [place] 08/28/2024 01:35:45 AM >escala de dolor 0 Encounters Encounter Location Date Provider Diagnosis [facility] [place] [address] [place], [place] [id number] 08/27/2024 MATT CRAIG HUANG Acute bilateral low back pain, unspecified whether sciatica present M54.50 Assessments Encounter Date Diagnosis (ICD Code) Assessment Notes Treatment Notes Treatment Clinical Notes Section Notes 08/27/2024 Acute bilateral low back pain, unspecified whether sciatica present (ICD-10 - M54.50) Toradol 60 mg IM Decadron 8 mg IM Norflex 100 mg PO CRAIG HUANG, MATT 08/27/2024 08:43:16 PM > 0.9% NSS 1000 ml 150 ml/hr CRAIG HUANG, MATT 08/27/2024 10:30:31 PM > CRAIG HUANG, MATT 08/27/2024 08:41:56 PM > 08/27/2024 Other EDWARDS ALBERTINA RN, BSN Lic. [id number], [place] 08/27/2024 08:52:23 PM > Se recibe paciente estable dentro de dodson condicion, en compania de dodson familiar, alerta y orientado en tiempo, lugar y persona, ambulando. Se orienta a paciente y familiar sobre orden medica y procedimiento, refiere entender. Se identifica paciente correcto. Se corroboran alergias, y se orienta a paciente sobre tratamiento a ofrecer, verbaliza entender. Se provee privacidad. Se colectan muestras de laboratorio ever orden medica: CBC+DIFF, BMP, bajo medidas asepticas y de seguridad. Se rotulan y son enviadas al laboratorio. Se administran medicamentos ever orden medica: Norfelx 100 mg PO, Toradol 60 mg IM, Decadron 8 mg IM, en gluteo derecho cuadrante superior externo, bajo medidas asepticas y de seguridad. Paciente no presenta reaccion adversa al momento. Se orienta a notificar cambios, refiere entender. JERRY ENG RN, BSN Lic. [id number], [place] 08/27/2024 08:52:23 PM > JERRY ENG RN, BSN Lic. [id number], [place] 08/27/2024 10:33:28 PM > Paciente es re evaluado por jackeline Craig. Se orienta sobre orden medica y procedimiento a realizar, refiere entender. Se canaliza paciente en mano derecha con angio arlen 22, bajo medidas asepticas y de seguridad. IV patente robby de edema y erritema. Se corroboran las alergias en sistema y paciente. Se administra medicamento ever orden medica: 09 nss 1000 ml at 150 ml/hr, bajo medidas asepticas y de seguridad. Se mantiene paciente en observacion. JERRY ENG RN, BSN Lic. [id number], [place] 08/27/2024 10:33:28 PM > DAVID BARRERA RN, BSN Lic.[id number], [facility] 08/28/2024 01:35:13 AM > Paciente es dado de nav en condicion estable, alerta y orientado en tiempo, lugar y persona. Se educa sobre instrucciones medicas, tratamiento a seguir en el hogar, seguimiento con medico primario, y a pasar con el personal de servicio al paciente para completar proceso de nav, refiere entender. Vitales medidos y documentados previos al nav. Paciente refiere escala de dolor en 0/10 al momento del nav. DAVID BRUCE RN, BSN Lic.[id number], [place] 08/28/2024 01:35:21 AM > CRAIGFERNY AMAYARIANA 08/27/2024 08:41:56 PM > Plan Of Treatment Treatment Notes Assessment Notes Acute bilateral low back jayy n, unspecified whether sciatica present Toradol 60 mg IM Decadron 8 mg IM Norflex 100 mg PO CRAIG REINA MATT 08/27/2024 08:43:16 PM > 0.9% NSS 1000 ml 150 ml/hr CRAIG MATT HUANG 08/27/2024 10:30:31 PM > Other CARLOS ALBERTO GILMAN RNN Lic. [id number], [place] 08/27/2024 08:52:23 PM > Se recibe paciente estable dentro de dodson condicion, en compania de dodson familiar, alerta y orientado en tiempo, lugar y persona, ambulando. Se orienta a paciente y familiar sobre orden medica y procedimiento, refiere entender. Se identifica paciente correcto. Se corroboran alergias, y se orienta a paciente sobre tratamiento a ofrecer, verbaliza entender. Se provee privacidad. Se colectan muestras de laboratorio ever orden medica: CBC+DIFF, BMP, bajo medidas asepticas y de seguridad. Se rotulan y son enviadas al laboratorio. Se administran medicamentos ever orden medica: Norfelx 100 mg PO, Toradol 60 mg IM, Decadron 8 mg IM, en gluteo derecho cuadrante superior externo, bajo medidas asepticas y de seguridad. Paciente no presenta reaccion adversa al momento. Se orienta a notificar cambios, refiere entender. JERRY ENG RN, ERAN Lic. [id number], [place] 08/27/2024 08:52:23 PM > ERAN GILMAN RN Lic. [id number], [place] 08/27/2024 10:33:28 PM > Paciente es re evaluado por jackeline Craig. Se orienta sobre orden medica y procedimiento a realizar, refiere entender. Se canaliza paciente en mano derecha con angio arlen 22, bajo medidas asepticas y de seguridad. IV patente robby de edema y erritema. Se corroboran las alergias en sistema y paciente. Se administra medicamento ever orden medica: 09 nss 1000 ml at 150 ml/hr, bajo medidas asepticas y de seguridad. Se mantiene paciente en observacion. JERRY ENG RN, BSN Lic. [id number], [place] 08/27/2024 10:33:28 PM > DAVID BARRERA RN, BSN Lic.[id number], [facility] 08/28/2024 01:35:13 AM > Paciente es dado de nav en condicion estable, alerta y orientado en tiempo, lugar y persona. Se educa sobre instrucciones medicas, tratamiento a seguir en el hogar, seguimiento con medico primario, y a pasar con el personal de servicio al paciente para completar proceso de nav, refiere entender. Vitales medidos y documentados previos al nav. Paciente refiere escala de dolor en 0/10 al momento del nav. DAVID BARRERA RN, BSN Lic.[id number], [facility] 08/28/2024 01:35:21 AM > Progress Notes * Vladimir ALTMANOB:1964 (59 yo M)Acc No.[id number]:08/27/2024 Patient:?Francisco ALTMAN Provider:?MATT HUANG MD :1965???Age:59 Y???Sex:Male Donnie e:08/27/2024 Address:[address] [place] [address] [address] Check In:12:33 AM BOT Subjective: * Chief Complaints: * ???1. Paciente refiere: Sie nto calambres en las juan f, dolor en la espalda baja y mareos . Desde esta manana. Categoria marshall. 2. MARITA PHELPS RN, BSN Lic.[id number] 08/27/2024 08:06:13 PM >. * HPI: ???Depression Screening:?PHQ-2 (2015 Edition)?Little interest or pleasure in doing things??Not at all ?Feeling down, depressed, or hopeless??Not at all ?Total Score?0 ???MEDICO:? 59 y/o male patient came to ED due to bilateral lower back pain, leg cramps, weakness leg, denies numbness ot tigling sesation.?? MATT HINES 08/27/2024 08:39:12 PM > . * ROS:?ER:?Sistem Integumentario?Observacion del turno 3 PM - 11 PM, Observacion revela piel integra sin quemaduras, reseques, erupciones o ulceras.?Sistema Cardiorespiratorio?Observacion del turno 3 PM - 11 PM, Observacion revela no dolor de pecho, palpitaciones, tos o disnea.?Sistema gastrointestinal?Observacion del turno 3 PM - 11 PM, Observacion revela no diarreas, vomitos o ailyn abdominales.?Sistema musculoskeletal?Observacion del turno 3 PM - 11 PM, Paciente reporta, dolor de espalda baja, mareos y sensacion de calambres en ambas juan f.?Sistema genitourinario?Observacion del turno 3 PM - 11 PM, Observacion revela no alteracion, hematuria u orina con dolor.?Modo de llegada?Modo de llegada, caminando, vino acompanado.?Estado emocional?Se observa paciente, calmado, activo.?Estado mental?alerta, orientado, en tiempo, lugar y persona.?MARITA PHELPS RN, BSN Lic.[id number], [place] 08/27/2024 08:13:16 PM >. * Medical History:?Enfisema pu lmonar, Granulomas en rinones, Hipertension, Diabetes. * Surgical History:?Denies Pas t Surgical History. * Hospitalization/Major Diagno stic Procedure:?Denies Past Hospitalization. * Social History:?Vernell de Emergencia:?Historial Social?Vivienda?Con agustina ?Sospecha de maltrato, violencia, u abuso sexual??No ?Viaje?Si viajo fuera de P.R. ?A donde?[place] ?Cuando?Inmunizacion al yojana?Si ?Inmunizacion contra el tetano?No ?Transfuciones componentes sanguineos?No ?Modo de llegada?Ambulando ?Acompanado pro?Familiar Stephanie Connor, Esposa ???COVID-19:?Cuestionario Riesgo COVID-19?Fecha?08/27/2024 ?Presenta algun sintoma:?Ninguno ?Se scott realizado recientemente la prueba rapida o molecular para el COVID 19?No ?Conoce a alguien que haya sido positivo al COVID-19?No ?Scott participado de eventos publicos, sociales o familiares en los ultimos 14 wu?Yes ?Cuando?Scott viajado fuera de [place] o scott estado en contacto con alguien que haya estado fuera de [place] en los pasados 14 wu?No ?Se scott vacunado contra el COVID-19?Refuerzo * Medications:?Taking Clinton 3 , Taking Tamsulosin HCl , Taking Aspirin 81 , Taking Lisinopril , Taking Atorvastatin Calcium , Taking metFORMIN HCl , Medication List reviewed and reconciled with the patient * Allergies:?N.K.D.A. Objective: * Vitals: Ht 74in?? 08/27/2024 08:13:07 PM BOT?? Wt* 215 lbs?? 08/27/2024 08:13:07 PM BOT?? IVO NNE?MARITA PHELPS RN, BSN Lic.[id number] BMI* 27.6Index?? 08/27/2024 08:13:07 PM BOT?? IVO NNE?MARITA PHELPS RN, BSN Lic.[id number] Pain scale* 71-10?? 08/27/2024 08:13:08 PM BOT?? IVO NNE?MARITA PHELPS RN, BSN Lic.[id number] BP* 120/74mm Hg?? 08/28/2024 01:36:08 AM BOT?? DAMEON MA?DAVID BARRERA RN, BSN Lic.[id number] 133/68 mm Hg?? 08/27/2024 08:16:40 PM BOT?? IVO NNE?MARITA PHELPS RN, BSN Lic.[id number] HR* 75/min?? 08/28/2024 01:36:08 AM BOT?? DAMEON MA?DAVID COLON RN, BSN Lic.[id number] 82 /min?? 08/27/2024 08:16:40 PM BOT?? IVO NNE?MARITA PHELPS RN, BSN Lic.[id number] RR* 19/min?? 08/28/2024 01:36:08 AM BOT?? DAMEON MA?DAVID COLON RN, BSN Lic.[id number] 19 /min?? 08/27/2024 08:16:40 PM BOT?? IVO NNE?MARITA PHELPS RN, BSN Lic.[id number] Temp* 36.8C?? 08/28/2024 01:36:08 AM BOT?? DAMEON MA?DAVID BARRERA RN, BSN Lic.[id number] 36.9 C?? 08/27/2024 08:16:40 PM BOT?? IVO NNE?MARITA PHELPS RN, BSN Lic.[id number] Oxygen sat %* 99%?? 08/28/2024 01:36:08 AM BOT?? DAMEON MA?DAVID BARRERA RN, BSN Lic.[id number] 98 %?? 08/27/2024 08:16:40 PM BOT?? IVO NNE?MARITA PHELPS RN, BSN Lic.[id number] Glucose:* 113?? 08/27/2024 08:16:40 PM BOT?? IVO NNE?MARITA PHELPS RN, BSN Lic.[id number] Ht-cm* 187.96 cm?? 08/27/2024 08:13:08 PM BOT?? IVO NNE?MARITA PHELPS RN, BSN Lic.[id number] Wt-kg* 97.52 kg?? 08/27/2024 08:13:08 PM BOT?? IVO NNE?MARITA PHELPS RN, BSN Lic.[id number] DAVID BARRERA RN, BSN Lic.[id number], [place] 08/28/2024 01:35:45 AM >escala de dolor 0. * Examination: ???General Examination: ???General: Alert, active and oriented x 3, no respiratory distress, not acutely ill HEENT: ABELINO, EOMI, unremarkable Heart: Regular rate/rhythm Lungs: CTA x 2, no wheezing/rales/rhonchi Abdomen: Normal bowel sounds, soft and depressible, no guarding or rebound tenderness Extremities: no edema Neuro: CN II-XII intact, No weakness or limitations Genital: deferred MATT HINES 08/27/2024 08:42:10 PM > . Assessment: * Assessment: 1.?Acute bilateral low back pain, unspecified whether sciatica present - M54.50 (Primary)??? MATT HINES 07/31 08:41:56 PM > Plan: * Treatment: 2.?Others? Notes: EDWARDS ALBERTINA RN, BSN Lic. [id number], [place] 08/27/2024 08:52:23 PM > Se recibe paciente estable dentro de dodson condicion, en compania de dodson familiar, alerta y orientado en tiempo, lugar y persona, ambulando. Se orienta a paciente y familiar sobre orden medica y procedimiento, refiere entender. Se identifica paciente correcto. Se corroboran alergias, y se orienta a paciente sobre tratamiento a ofrecer, verbaliza entender. Se provee privacidad. Se colectan muestras de laboratorio ever orden medica: CBC+DIFF, BMP, bajo medidas asepticas y de seguridad. Se rotulan y son enviadas al laboratorio. Se administran medicamentos ever orden medica: Norfelx 100 mg PO, Toradol 60 mg IM, Decadron 8 mg IM, en gluteo derecho cuadrante superior externo, bajo medidas asepticas y de seguridad. Paciente no presenta reaccion adversa al momento. Se orienta a notificar cambios, refiere entender. JERRY ENG RN, CARLOS [place]BERTON Lic. [id number], [place] 08/27/2024 08:52:23 PM > CARLOS ALBERTO GILMAN RNN Lic. [id number], [place] 08/27/2024 10:33:28 PM > Paciente es re evaluado por la Dra. Silvae. Se orienta sobre orden medica y procedimiento a realizar, refiere entender. Se canaliza paciente en mano derecha con angio arlen 22, bajo medidas asepticas y de seguridad. IV patente robby de edema y erritema. Se corroboran las alergias en sistema y paciente. Se administra medicamento ever orden medica: 09 nss 1000 ml at 150 ml/hr, bajo medidas asepticas y de seguridad. Se mantiene paciente en observacion. JERRY ENG RN, BSN Lic. [id number], [place] 08/27/2024 10:33:28 PM > DAVID BARRERA RN, BSN Lic.[id number], [facility] 08/28/2024 01:35:13 AM > Paciente es dado de nav en condicion estable, alerta y orientado en tiempo, lugar y persona. Se educa sobre instrucciones medicas, tratamiento a seguir en el hogar, seguimiento con medico primario, y a pasar con el personal de servicio al paciente para completar proceso de nav, refiere entender. Vitales medidos y documentados previos al nav. Paciente refiere escala de dolor en 010 al momento del nav. DAVID BARRERA RN, BSN Lic.[id number], [facility] 08/28/2024 01:35:21 AM >?? * Procedure Codes:?08656 EMERG ENCY DEPT VISIT, [address] [place], [address] COMPLETE CBC W/AUTO DIFF WBC * Preventive Medicine:? ??Vernell de Emergencia:?Educaciones vernell de emergencia?Se educo al paciente y/o familiar sobre?Medidas de seguridad en vernell de emergencias, Prevencion de caidas, Tratamineto ofrecido, Manejo de condicion, Medicamento administrado, Procedimiento realizado, Manejo del dolor, Dieta ??UDS Reporting:?Adult Weight Counseling?Physical activity Recomended?Yes ?Educacion carmina dental?Se recomendo a paciente visitar a un profesional de la carmina oral cada 6 meses?Yes ?Importancia de asistencia a janki citas de seguimiento para el manejo de condiciones cronicas?Importabcia asistencia a janki citas de seguimiento?Paciente fue educado sobre la importancia de la asistencia a janki citas de seguimiento para el manejo de janki condiciones cronicas de carmina, Paciente entiende la importancia de asistir a janki citas programadas, Paciente se compromete a no ausentarse a janki citas de seguimiento ??? INSTRUCCIONES GENERALES DE NAV Vaya con dodson medico primario en o antes de 3 wu. Es importante que siga las recomendaciones discutidas con el medico. Si se le receto alguna medicina, siga las instrucciones dadas en el envase. Si se le realizo Nanette X, la interpretacion de janki radiologias scott sido hecha por el medico de Emergencia y es preliminar. El radiologo leera janki radiografias y emitira un resultado final. Usted es reponsable de solicitar copia del reporte oficial de las radiologias o laboratorios, a traves del Departamento de Manejo de Informacion, siguiendo el protocolo establecido. Limite a janki actividades ever lo indicado. De empeorar dodson condicion actual dirijase a hola vernell de emergencias para ser re-evaluado. ?Patient was oriented to repeat CMP and F/u with Volunteer Recruitment Coordinator MATT HINES 08/28/2024 01:34:33 AM >. * Billing Information: * Visit Code:? * Procedure Codes:? 29649 EMERGENCY DEPT VISIT. [address] [place]. [address] COMPLETE CBC W/AUTO DIFF WBC. * Sign off status: Completed true * Provider:?MATT HUANG MD Donnie e:?08/27/2024 Generated for Shanika nance/Olivia/eTransmitting on:?11/12/2024 10:48 AM BOT History and Physical Notes * HPI (History of Present Illness) Category Sub-Category Detail Notes Category Not es MEDICO 59 y/o male patient came to ED due to bilateral lower back pain, leg cramps, weakness leg, denies numbness ot tigling sesation. MATT HINES 08/27/2024 08:39:12 PM > Depression Screening PHQ-2 (2015 Edition) Little interest or pleasure in doing things?: Not at all Feeling down, depressed, or hopeless?: N ot at all Total Score: 0 Examination Category Sub-Category Detail Notes Category Not es General Examination General: Alert, active and oriented x 3, no respiratory distress, not acutely ill HEENT: ABELINO, EOMI, unremarkable Heart: Regular rate/rhythm Lungs: CTA x 2, no wheezing/rales/rhonchi Abdomen: Normal bowel sounds, soft and depressible, no guarding or rebound tenderness Extremities: no edema Neuro: CN II-XII intact, No weakness or limitations Genital: deferred MATT HINES 08/27/2024 08:42:10 PM >
--- OUTSIDE RECORDS SUMMARY | 2024-11-12 10:49 | XMS_ITS | Encounter Summary ---
Author Organization [employer] Address [address] [facility] [address] [place] [address] Care Team Providers Care Hardwood Finisher Name Role Phone Name, Henri HELMS Primary Care Provider [phone] Reason for Visit * Reason Onset Date Comments chart prep 11/10/2024 Encounter Details Date Type Department Care Team ([facility] st Contact Info) Description 11/10/[address] [address] Chandler Sánchez MA chart prep Social History Tobacco Use Types Packs/Day Years [...] Answer Date Recorded Patient Health Questionnaire-9 Score 2 11/11/2024 Patient Health Questionnaire-9 Score 2 11/11/2024 Last PHQ-9: Questionnaire Data Not on file 0 11/11/2024 Housing Stability Answer Date Recorded What is [...] Date Recorded Patient Health Questionnaire-2 Score 0 11/11/2024 Internet Access Answer Date Recorded Internet Access [...] encounter Miscellaneous Notes * Telephone Encounter - Chandler Sánchez MA - 11/10/2024 3:07 PM EDT Chart Prep Labs: done Images: done Referrals: complete Vaccines due: yes Screenings: not applicable Overdue care gaps: A1c, Glucose, PHQ-9, KARINA-7, and Disability screen documented in this encounter Plan of Treatment Upcoming Encounters Date Type Department Care Team (Late st Contact Info) Description 03/12/2025 1:00 PM EDT Office Visit [facility] [address] [place] [address] Michael, Rabia [address] [place] [address] documented as of this encounter Visit Diagnoses Not on filedocumented in this encounter Additional Health Concerns Assessment Noted Time PHQ-9 Depression Total Score: 0 03/20/20 23 9:55 AM EDT documented as of this encounter Care Teams Hardwood Finisher Relationship Specialty Start Date End Date Name, MD Henri [address] [place] [address] PCP - General Family Medicine 03/17/21 documented as of this encounter
--- OUTSIDE RECORDS SUMMARY | 2024-11-12 10:49 | XMS_ITS | Encounter Summary ---
Author Organization [facility] Address [address] [place] [address] [address] [place] [address] Care Team Providers Care Petroleum Production Engineer Name Role Phone Name, Henri HELMS Primary Care Provider [phone] Encounter Details Date Type Department Care Team (Late st Contact Info) Description 04/26/2023 Abstract [facility] [address] [place], [place] [id number] Jalil Anglin DDS [address] [place], [place] [phone] Social History Tobacco Use Types Packs/Day Years [...] Description 03/12/2025 1:00 PM EDT Office Visit [facility] [address] [place] [address] Rabia Rodriguez [address] [place] [address] documented as of this encounter Visit Diagnoses Not on filedocumented in this encounter Additional Health Concerns Assessment Noted Time PHQ-9 Depression Total Score: 0 03/20/20 23 9:55 AM EDT documented as of this encounter Care Teams Petroleum Production Engineer Relationship Specialty Start Date End Date Name, MD Henri [address] [place] [address] PCP - General Family Medicine 03/17/21 documented as of this encounter
--- OUTSIDE RECORDS SUMMARY | 2024-11-12 10:49 | XMS_ITS | Encounter Summary ---
Author Organization [employer] Address [address] [facility] 7t [place] [address] Care Team Providers Care Helpdesk Analyst Name Role Phone Name, Henri HELMS Primary Care Provider [phone] Reason for Visit * Reason Comments Diabetes Hypertension Encounter Details Date Type Department Care Team ([facility] st Contact Info) Description 11/11/2024 10:30 AM EDT Office Visit [facility] [address] [place] [address] [phone] Name, MD Henri [address] [place] [address] Type 2 diabetes mellitus without complication, without long-term current use of insulin ([facility]) (Primary Dx); Tobacco dependence; Benign prostatic hyperplasia with urinary frequency; Essential hypertension Social History Tobacco Use Types Packs/Day Years Used Date Smoking Tobacco: Some Days Cigarettes Passive Smoke Exposure: Current Smokeless Tobacco: Former Tobacco Cessation:Ready to Q uit: Not Asked; Counseling Given: Not Answered Alcohol Use Standard Drinks/Week Comments Yes 0 [...] Sign Reading Time Taken Comments Blood Pressure 126/78 11/11/2024 10:37 AM EDT Pulse 82 11/11/2024 10:13 AM EDT Temperature 36.3 ??C (97.3 ??F) 11/11/2024 10:13 AM E DT Respiratory Rate 12 11/11/2024 10:13 AM EDT Oxygen Saturation 98% 11/11/2024 10:13 AM EDT Inhaled Oxygen Concentration - - Weight 96.6 kg (213 lb) 11/11/2024 10:13 AM EDT Height 190.5 cm (6' 3 ) 11/11/2024 10:13 AM EDT Body Mass Index 26.62 11/11/2024 10:13 AM EDT documented in this encounter Progress Notes * Henri Bolton, - 11/11/2024 10:30 AM EDT Subjective Patient ID: Francisco Osullivan is a 59 y.o. male who presents for Diabetes and Hypertension. Patient comes accompanied by his . His blood sugar is well-controlled based on his hemoglobin A1c. BP was initially elevated but repeat measurement was normal. He is using his medications as prescribed. He describes improvement in symptoms of BPH with the use of Flomax. Unfortunately he restarted smoking. He is interested in trying nicotine patches again. Review of Systems Constitutional: Negative for chills, fatigue and fever. HENT: Negative for sore throat. Respiratory: Negative for cough, chest tightness and shortness of breath. Cardiovascular: Negative for chest pain, palpitations and leg swelling. Gastrointestinal: Negative for abdominal pain and blood in stool. Visit Vitals BP 126/78 Pulse 82 Temp 97.3 ??F (36.3 ??C) (Temporal) Resp 12 Ht 6' 3 (1.905 m) Wt 213 lb (96.6 kg) SpO2 98% BMI 26.62 kg/m?? Smoking Status Some Days BSA 2.26 m?? Objective Physical Exam Constitutional: Appearance: Normal appearance. Cardiovascular: Rate and Rhythm: Normal rate and regular rhythm. Pulses: Dorsalis pedis pulses are 2+ on the right side and 2+ on the left side. Posterior tibial pulses are 2+ on the right side and 2+ on the left side. Heart sounds: No murmur heard. Pulmonary: Effort: Pulmonary effort is normal. No respiratory distress. Breath sounds: No wheezing, rhonchi or rales. Abdominal: Palpations: Abdomen is soft. Tenderness: There is no abdominal tenderness. Musculoskeletal: Right lower leg: No edema. Left lower leg: No edema. Right foot: Normal range of motion. Left foot: Normal range of motion. Feet: Right foot: Protective Sensation: 5 sites tested. 5 sites sensed. Skin integrity: Skin integrity normal. Toenail Condition: Right toenails are normal. Left foot: Protective Sensation: 5 sites tested. 5 sites sensed. Skin integrity: Skin integrity normal. Toenail Condition: Left toenails are normal. Neurological: Mental Status: He is alert. Lab Results Component Value Date HGBA1C 6.9 (A) 11/11/2024 HGBA1C 6.6 (A) 04/22/2024 HGBA1C 7.1 (A) 10/16/2023 HGBA1C 6.8 (A) 03/20/2023 HGBA1C 6.2 (H) 06/15/2022 HGBA1C 5.9 (H) 11/09/2020 Assessment/Plan Diagnoses and all orders for this visit: Type 2 diabetes mellitus without complication, without long-term current use of insulin (CMS/HCC) Comments: Well-controlled. Continue current medications and avoid sweets. Orders: - POCT Glucose - POCT HGB A1C - Basic Metabolic Panel; Future Tobacco dependence Comments: Patient is up-to-date with low radiation CT. I prescribed nicotine patches for smoking cessation. Benign prostatic hyperplasia with urinary frequency Comments: Continue Flomax and recheck PSA Orders: - PSA,Total; Future Essential hypertension Comments: Well-controlled. Continue current dose of lisinopril Orders: - Basic Metabolic Panel; Future Other orders - nicotine (Nicoderm CQ) 21 MG/24HR patch; Place 1 patch on the skin 1 (one) time each day at the same time. documented in this encounter Plan of Treatment Upcoming Encounters Date Type Department Care Team (Late st Contact Info) Description 03/12/2025 1:00 PM EDT Office Visit [facility] [address] [place] [address] Michael, Rabia [address] [place] [address] Scheduled Orders Name Type Priority Associated Diagnoses Orde r Schedule Basic Metabolic Panel Lab Routine Type 2 diabetes mellitus without complication, without long-term current use of insulin (CMS/HCC) Essential hypertension Expected: 11/11/2024 (Approximate), Expires: 11/11/2025 PSA,Total Lab Routine Benign prostatic hyperplasia with urinary frequency Expected: 11/11/2024, Expires: 11/11/2025 documented as of this encounter Procedures Procedure Name Priority Date/Time Associated Diagnosis Comments POCT GLYCATED HEMOGLOBIN, TOTAL Routine 11/11/2024 10:28 AM EDT Type 2 diabetes mellitus without complication, without long-term current use of insulin (CMS/HCC) POCT GLUCOSE Routine 11/11/2024 10:27 AM EDT Type 2 diabetes mellitus without complication, without long-term current use of insulin (CMS/HCC) documented in this encounter Results * (ABNORMAL) POCT HGB A1C (11/11/2024 10:28 AM EDT) Hemoglobin A1C 6.9(A) 4.0 - 6.0 % QC Media Lot # [id number] Lot# Expiration Date [id number] Blood 11/11/2024 10:2 8 AM EDT Henri Bolton MD POINT OF CARE TEST ENTER/EDIT OR DERABLES Final Result * (ABNORMAL) POCT Glucose (11/11/2024 10:27 AM EDT) Glucose Blood, POC 227(A) 60 - 200 mg/dL QC Media Lot # [id number] Lot# Expiration Date [id number] Blood Capillary blood specimen / Unknown 11/11/2024 10:27 AM EDT Henri Bolton MD POINT OF CARE TEST ENTER/EDIT OR DERABLES Final Result documented in this encounter Visit Diagnoses Diagnosis Type 2 diabetes mellitus without complication, without long-term current use of insulin ([facility])- Primary Tobacco dependence Tobacco use disorder Benign prostatic hyperplasia with urinary frequency Essential hypertension Unspecified essential hypertension documented in this encounter Additional Health Concerns Assessment Noted Time PHQ-9 Depression Total Score: 2 11/12/19 25 10:18 AM EDT documented as of this encounter Care Teams Helpdesk Analyst Relationship Specialty Start Date End Date Name, MD Henri [address] [place] [address] PCP - General Family Medicine 03/17/21 documented as of this encounter
--- OUTSIDE RECORDS SUMMARY | 2024-11-12 10:49 | XMS_ITS | Encounter Summary ---
Author Organization [employer] Address [address] [facility] 7 [place] [address] Care Team Providers Care Beauty Counselor Name Role Phone Name, Henri HELMS Primary Care Provider [phone] Reason for Visit * Reason Onset Date Comments Appointment Request 04/17/2024 Encounter Details Date Type Department Care Team ([facility] st Contact Info) Description 04/17/2024 Telephone [facility] [address] [place], [place] [phone] Name, MD Henri [address] [place] [address] Appointment Request Social History Tobacco Use Types [...] Description 03/12/2025 1:00 PM EDT Office Visit [facility] [address] [place] [address] Kai Rodriguezaris [address] [place] [address] documented as of this encounter Visit Diagnoses Not on filedocumented in this encounter Additional Health Concerns Assessment Noted Time PHQ-9 Depression Total Score: 0 03/20/20 9:55 AM EDT documented as of this encounter Care Teams Beauty Counselor Relationship Specialty Start Date End Date Name, MD Henri [address] [place] [address] PCP - General Family Medicine 03/17/21 documented as of this encounter
--- OUTSIDE RECORDS SUMMARY | 2024-11-12 10:49 | XMS_ITS | Encounter Summary ---
Author Organization [facility] Address [address] [place] [address] 7 [place] [address] Care Team Providers Care Drupal Developer Name Role Phone Name, Henri HELMS Primary Care Provider [phone] Encounter Details Date Type Department Care Team (Late st Contact Info) Description 02/25/2023 Orders Only [facility] [address] [place] [address] Iona Mcgraw MD [address] [place] [address] Skin ulcer, unspecified ulcer stage (CMS/HCC) (Primary [...] Description 03/12/2025 1:00 PM EDT Office Visit [facility] [address] [place] [address] Rabia Rodriguez [address] [place] [address] documented as of this encounter Visit Diagnoses Diagnosis Skin ulcer, unspecified ulcer stage (CMS/HCC)- Primary documented in this encounter Care Teams Drupal Developer Relationship Specialty Start Date End Date Name, MD Henri [address] [place] [address] PCP - General Family Medicine 03/17/21 documented as of this encounter
--- OUTSIDE RECORDS SUMMARY | 2024-11-12 10:49 | XMS_ITS | Encounter Summary ---
Author Organization [facility] Address [address] [place] [address] Care Team Providers Care Supervisor Underwriting Clerks Name Role Phone Name, Henri HELMS Primary Care Provider [phone] Reason for Visit * Reason Comments Med Refill Encounter Details Date Type Department Care Team (Late st Contact Info) Description 01/21/2023 Refill [facility] [address] [place] [address] Jarrett Peters MD [address] [place] [address] Mixed hyperlipidemia Social History Tobacco Use Types [...] 1:00 PM EDT Office Visit [facility] [address] [place] [address] Rabia Rodriguez [address] [place] [address] documented as of this encounter Visit Diagnoses Diagnosis Mixed hyperlipidemia documented in this encounter Care Teams Supervisor Underwriting Clerks Relationship Specialty Start Date End Date Name, MD Henri [address] [place] [address] PCP - General Family Medicine 03/17/21 documented as of this encounter
--- OUTSIDE RECORDS SUMMARY | 2024-11-12 10:49 | XMS_ITS | Encounter Summary ---
Author Organization [facility] Address [address] [place] [address] 7 [place] [address] Care Team Providers Care Plant Care Worker Name Role Phone Name, Henri HELMS Primary Care Provider [phone] Encounter Details Date Type Department Care Team (Latest Contact Info) Description 05/31/2021 Abstract [facility] CONVERSIONS Dental, Provider, DDS Social History [...] Description 03/12/2025 1:00 PM EDT Office Visit [facility] [address] [place] [address] Michael, Rabia [address] [place] [address] documented as of this encounter Visit Diagnoses Not on filedocumented in this encounter Care Teams Plant Care Worker Relationship Specialty Start Date End Date Name, MD Henri [address] [place] [address] PCP - General Family Medicine 03/17/21 documented as of this encounter
--- OUTSIDE RECORDS SUMMARY | 2024-11-12 10:49 | XMS_ITS | Encounter Summary ---
Author Organization [employer] Address [address] [place] [address] 7 [place] [address] Care Team Providers Care Dining Room Helper Name Role Phone Name, Henri HELMS Primary Care Provider [phone] Encounter Details Date Type Department Care Team (Late st Contact Info) Description 01/22/2023 Orders Only [facility] [address] [place] [address] Nelsy Sosa LPN Social History Tobacco Use [...] Description 03/12/2025 1:00 PM EDT Office Visit [facility] [address] [place] [address] Michael, Rabia [address] [place] [address] documented as of this encounter Visit Diagnoses Not on filedocumented in this encounter Care Teams Dining Room Helper Relationship Specialty Start Date End Date Name, MD Henri [address] [place] [address] PCP - General Family Medicine 03/17/21 documented as of this encounter
--- OUTSIDE RECORDS SUMMARY | 2024-11-12 10:49 | XMS_ITS | Encounter Summary ---
Author Organization [employer] Address [address] [facility] 7 [place] [address] Care Team Providers Care Hazmat Technician Name Role Phone Name, Henri HELMS Primary Care Provider [phone] Reason for Visit * Reason Comments Med Refill Encounter Details Date Type Department Care Team (Late st Contact Info) Description 07/23/2023 Refill [facility] [address] [place], [place] [phone] Name, MD Henri [address] [place] [address] Social History Tobacco Use Types Packs/Day Years [...] [facility] [address] [place] [address] Rabia Rodriguez [address] [place] [address] documented as of this encounter Visit Diagnoses Not on filedocumented in this encounter Additional Health Concerns Assessment Noted Time PHQ-9 Depression Total Score: 0 03/20/20 9:55 AM EDT documented as of this encounter Care Teams Hazmat Technician Relationship Specialty Start Date End Date Name, MD Henri [address] [place] [address] PCP - General Family Medicine 03/17/21 documented as of this encounter
--- OUTSIDE RECORDS SUMMARY | 2024-11-12 10:49 | XMS_ITS | Encounter Summary ---
Author Organization [employer] Address [address] [facility] 7t [place] [address] Care Team Providers Care Painter Drum Name Role Phone Name, Henri HELMS Primary Care Provider [phone] Encounter Details Date Type Department Care Team (Latest Contact Info) Description 11/08/2024 Travel Social History Tobacco Use Types Packs/Day [...] Description 03/12/2025 1:00 PM EDT Office Visit [facility] [address] [place] [address] Rabia Rodriguez [address] [place] [address] documented as of this encounter Visit Diagnoses Not on filedocumented in this encounter Additional Health Concerns Assessment Noted Time PHQ-9 Depression Total Score: 0 03/20/20 23 9:55 AM EDT documented as of this encounter Care Teams Painter Drum Relationship Specialty Start Date End Date Name, MD Henri [address] [place] [address] PCP - General Family Medicine 03/17/21 documented as of this encounter
--- OUTSIDE RECORDS SUMMARY | 2024-11-12 10:49 | XMS_ITS | Clinical Summary ---
Author Organization [employer] Address [address] [place] [address] 7[address] [place] [address] Care Team Providers Care Benefits Administrator Name Role Phone Name, Chester HELMS Primary Care Provider [phone] Allergies No known active allergies Medications lisinopril 10 MG tablet TAKE 1 TABLET BY MOUTH EVERY DAY FOR 90 DAYS 3 Active aspirin (Aspirin Low Dose) 81 MG EC tablet Take 1 tablet (81 mg) by mouth Once per day. 90 tablet 3 4 Active glucose blood (FREESTYLE LITE) test stripIndications:T ype 2 diabetes mellitus without complication, without long-term current use of insulin ([facility]) Use to test blood sugar up to twice daily 100 strip 11 4 Active metFORMIN (Glucophage) 1000 MG tablet Take 1 tablet (1,000 mg) by mouth with breakfast and with evening meal. 180 tablet 3 4 Active TRUEplus Lancets [facility]G [facility] Use to test blood sugar 2 time(s) [...] Once per day. 148 g 3 4 025 Active cetirizine (ZyrTEC) 10 MG tabletIndications: Allergic [...] up to 10 days. 10 tablet 5 Active acetaminophen (Tylenol 8 Hour) 650 MG ER tablet Take 1 tablet (650 mg) by mouth every 8 (eight) hours if needed for mild pain. Do not crush, chew, or split. 21 tablet 5 Active azelastine (Astelin) 0.1 % nasal spray spray 2 sprays in each nostril twice daily 5 Active FT Allergy Relief 24 Hour 180 MG tablet TAKE 1 TABLET BY MOUTH EVERY DAY FOR ALLERGIES 5 Active tadalafil (Cialis) 20 MG tablet Take 1 tablet by mouth Once per day. 5 Active nicotine (Nicoderm CQ) 21 MG/24HR patch Place 1 patch on the skin 1 (one) time each day at the same time. 30 patch 2 5 025 Active amoxicillin (Amoxil) 500 MG capsule Take 1 capsule (500 mg) by mouth every 8 (eight) hours for 7 days. 21 capsule 5 025 Active Problems Problem Noted Date Diagnosed Date Benign prostatic hyperplasia with urinary freque ncy 11/11/2024 History of tooth extraction 10/15/2024 Closed fracture of tooth 10/06/2024 Low back pain associated wit h a spinal disorder other than radiculopathy or spinal stenosis 09/15/2024 Assessment & Plan (09/15/2024 3:28 PM EST): Pt with acute on chronic back pain after moving furniture R>L side, Reviewed likely etiology of msk strain Prn muscle relaxer prescribed Return to clinic for failure to resolve or worsening symptoms Extruded tooth 06/04/2024 Emphysema of lung 10/16/2023 SHARMAINE (obstructive sleep apnea) 10/16/2023 Pulmonary nodules 10/16/2023 Former smoker 10/16/2023 Periodontal abscess 04/08/2023 Dental calculus 04/08/2023 Dental abscess 04/08/2023 Generalized gingival recession 04/08/2023 Missing teeth, acquired 04/08/2023 Renal cyst 11/26/2022 Overview (11/11/2024): [facility] [address] [place] [address] [place] [address] Ultrasound Report Signed Patient: Francisco Osullivan MR#: [id number] : 1965 Acct:[id number] Age/Sex: 56 / M ADM Date: 05/31/21 [facility] Attending Dr: Chester Raymond MD Ordering Physician: CHESTER RAYMOND MD Date of Service: 05/31/21 Procedure(s): US renal BI Accession Number(s): [id number] cc: CHESTER RAYMOND MD EXAMINATION: US RETROPERITONEAL LIMITED (RENAL ONLY) CLINICAL INFORMATION: Cyst of kidney. COMPARISON: Ultrasound kidneys and bladder 03/26/2019. TECHNIQUE: Real-time imaging of the kidneys. FINDINGS: RIGHT KIDNEY: 14.1 x 5.2 x 5.9 cm (SAG x AP x TRV). The kidney is normal in size, contour, and echogenicity. Renal cortical thickness is normal. There are 2 small right cysts measuring 6 x 5 x 5 mm in the upper pole and 4 x 4 by 3 mm in the midpole. These were not appreciated on prior ultrasound from 2019. No renal calculi or hydronephrosis. LEFT KIDNEY: 13.8 x 6.3 x 6.0 cm (SAG x AP x TRV). The kidney is normal in size, contour, and echogenicity. Renal cortical thickness is normal. There is a 1 x 1 x 0.7 cm cyst in the upper pole that does not appear changed. No renal calculi or hydronephrosis. US/US renal BI IMPRESSION: Small bilateral renal cysts. No imaging follow-up is indicated. Dictated By: Lara Hemphill MD Signed By: <Electronically signed by Lara Hemphill MD in OV> 06/02/21 1234 DD/ 1300 TD/TT: Risk Compliance Manager: KELLY Dyslipidemia 09/25/2018 Essential hypertension 09/25/2018 Tobacco dependence 09/25/2018 Type 2 diabetes mellitus without complication Resolved Problems Problem Noted Date Diagnosed Date Resolved Date Flank pain 09/15/2024 11/11/2024 Assessment & Plan (09/15/2024 3:26 PM EST): Pt with CVA tenderness, however pain is consistent in quality with msk flares And pt recently moved heavy furniture No blood in urine or dysuria Comp ordered as pt is concerned about renal function generally Chronic sinusitis 10/16/2023 10/16/2023 Smoker 10/16/2023 10/16/2023 Nicotine dependence, cigaret ro, uncomplicated 10/16/2023 10/16/2023 Lung mass 09/25/2018 11/11/2024 Overview (11/26/2022): [place] [facility] IMPRESSION: Stable small calcified and noncalcified pulmonary nodules probably related to old granulomatous disease. Tinea pedis 09/25/2018 10/16/2023 Overweight 09/25/2018 11/11/2024 Encounters Date Type Department Care Team Description 11/11/2024 10:30 AM EDT Office Visit [facility] [address] [place] [phone] Name, MD Chester Type 2 diabetes mellitus without complication, without long-term current use of insulin ([facility]) (Primary Dx); Tobacco dependence; Benign prostatic hyperplasia with urinary frequency; Essential hypertension 11/11/2024 Travel 11/10/2024 Telephone [facility] [address] [place] [address] Chandler Sánchez MA chart prep 11/08/2024 Travel 10/30/2024 2:30 PM EDT Office Visit [facility] [address] [place] [address] Laurel Gomez, OD Presbyopia (Primary Dx) 10/15/2024 10:30 AM EDT Office Visit [facility] [address] [place] [address] Jalil Anglin DDS History of tooth extraction, unspecified edentulism class (Primary Dx) 10/14/2024 Travel 10/09/2024 Population Health Risk Score [facility] ([facility] Department [address] [place] [phone] Provider, Population Health Generic 10/06/2024 1:30 PM EDT Office Visit [facility] [address] [place] [phone] Jalil Anglin DDS Closed fracture of tooth, initial encounter (Primary Dx); Periodontal abscess 10/01/2024 Travel 09/28/2024 1:00 PM EST Office Visit [facility] [address] [place] [address] Laurel Gomez, OD Diabetes type 2, no ocular involvement (CMS/HCC) (Primary Dx); Meibomian gland disease, unspecified laterality; Age-related nuclear cataract of both eyes; Presbyopia 09/28/2024 Travel 09/24/2024 Orders Only [facility] External Provider, [facility] 09/22/2024 Travel 09/18/2024 Telephone [facility] [address] [place] [address] [phone] Renuka Benites MA Results 09/15/2024 1:40 PM EST Office Visit [facility] [address] [place] [address] [phone] Afua Rivera NP Lumbar radiculopathy (Primary Dx); Flank pain 09/15/2024 Travel 09/15/2024 Telephone [facility] [address] [place] [phone] Chester Raymond MD Nurse Triage 09/03/2024 Refill [facility] [address] [place] [address] [phone] Chester Raymond MD from Last 3 Months Immunizations Name Administration [...] Mass Index 26.62 11/11/2024 10:13 AM EDT Plan of Treatment Upcoming Encounters Date Type Department Care Team (Late st Contact Info) Description 03/12/2025 1:00 PM EDT Office Visit [facility] [address] [place] [address] Michael, Rabia [address] [place] [address] Health Maintenance Due Date Last Done Comments Anal Pap 1965 CT Colonography 1965 FIT DNA/Cologuard 1965 FIT 1965 FOBT 1965 Sigmoidoscopy 1965 Hepatitis A Vaccines (1 of 2 - Risk 2-dose series) 1984 Dental Oral Exam 10/08/2023 04/08/2023, 12/12/2020 COVID-19 Vaccine ( season) 2024 05/18/2022, 11/15/2021, 12/07/2020, Additional history exists Dental Prophylaxis 12/03/2024 06/04/2024, 0 04/08/2023, 12/05/2021 SDOH Screening 04/15/2025 04/15/2024 Alcohol/Substance Use Screening 04/22/2025 04/22/2024 Diabetes: Urine Protein Screening 05/01/2025 05/01/2024, 03/21/2023, 06/15/2022, Additional history exists Lipid Panel 05/01/2025 05/01/2024, 02/27, 06/15/2022, Additional history exists Diabetes: Hemoglobin A1C 05/13/2025 025, 04/22/2024, 10/16/2023, Additional history exists Dental X-Ray: Bitewings 06/05/2025 06/04/20 24, 04/08/2023, 12/12/2020 Depression Screening 11/11/2025 11/11/2024, 11/12/19 Diabetes: Foot Exam 11/11/2025 11/11/2024, 11/11/2024, 11/11/2024, Additional history exists Tobacco Screening 11/11/2025 11/11/2024 Dental X-Ray: Full Mouth 04/09/2026 04/08/2023, 05/0 02/2019 Eye Exam 09/28/2026 09/28/2024, 030 09/2024, 09/28/2024, Additional history exists Colonoscopy 09/25/2028 09/26/2023 Colorectal Cancer Screening 09/25/2028 [...] complication, without long-term current use of insulin ([facility]) POCT GLUCOSE Routine 11/11/2024 10:27 AM EDT Type 2 diabetes mellitus without complication, without long-term current use of insulin ([facility]) REPAIR RESIN PARTIAL DENTURE BASE, MAX Routine 10/15/2024 10:30 AM EDT 5 ADD CLASP TO EXISTING PARTIAL DENTURE - PER TOOTH Routine 10/15/2024 10:30 AM EDT 10 ADD TOOTH TO EXISTING PARTIAL DENTURE Routine 10/15/2024 10:30 AM EDT CASE PRESENTATION, DETAILED AND EXTENSIVE TREATMENT PLANNING Routine 10/06/2024 1:30 PM EDT 5 EXTRACTION, ERUPTED TOOTH REQ REMOVAL OF BONE AND/OR SECTIONING OF TOOTH Routine 10/06/2024 1:30 PM EDT DENTURE IMPRESSION Routine 10/06/2024 1: 30 PM EDT INTRAORAL - PERIAPICAL FIRST RADIOGRAPHIC IMAGE Routine 10/06/2024 1:30 PM EDT 10 EXTRACTION, ERUPTED TOOTH OR EXPOSED ROOT (ELEVATION/FORCEPS REMOVAL) Routine 10/06/2024 1:30 PM EDT Periodontal abscess LDCT LUNG SCREENING Routine 09/24/2024 1 1:09 [...] without long-term current use of insulin (CMS/HCC) LIPID PANEL, STANDARD Routine 05/01/2024 9:27 AM [...] Recently Relevant to Health Maintenance Results * (ABNORMAL) POCT HGB A1C (11/11/2024 10:28 AM EDT) Hemoglobin A1C 6.9(A) 4.0 - 6.0 % QC Media Lot # [id number] Lot# Expiration Date [id number] Blood 11/11/2024 10:2 8 AM EDT Chester Raymond MD POINT OF CARE TEST ENTER/EDIT OR DERABLES Final Result * (ABNORMAL) POCT Glucose (11/11/2024 10:27 AM EDT) [facility] Signature Glucose Blood, POC 227(A) 60 - 200 mg/dL QC Media Lot # [id number] Lot# Expiration Date [id number] Blood Capillary blood specimen / Unknown 11/11/2024 10:27 AM EDT us Chester Name POINT OF CARE TEST ENTER/EDIT OR DERABLES Final Result * CT Lung Screening Low dose (09/24/2024 11:09 AM EST) Anatomical Region Laterality Modality Lung Computed Tomogra phy 09/24/2024 11:0 9 AM EST Narrative 09/24/2024 11:50 AM EST ? [facility] ?[address] ?[place] [address] ? CT Scan Report ? Signed ? Patient: Abran,Francisco ?MR#: [id number] ? : 1965 ?Acct:[id number] ? Age/Sex: 59 / M ?ADM Date: 09/24/24 ? Loc: HO.CT ? Attending Dr: Gudelia Ash PA-C ? Ordering Physician: Gudelia Ash PA-C ?? Date of Service: 09/24/24 ?? Procedure(s): CT lung screening ?? Accession Number(s): [id number] ? cc: Gudelia Ash PA-C; Name,Chester HELMS ? Report Number: ?? [id number]: Total DLP = ?? 60.00 mGy-cm ?? [...] for CT CHEST LOW DOSE CANCER SCREENING ([id number]) ?? can be placed. ? Electronically signed by: ??Miguel Stratton MD ??09/24/2024 11:47 AM EST RP ? Dictated By: ?Miguel Stratton MD ? Signed By: ?<Electronically signed by Miguel Stratton MD in OV> ?09/24/24 1147 ? DD/ 1109 ? TD/TT: 09/24/24 1123 ? Risk Compliance Manager: ? Procedure Note Glenda Kinsey - 09/24/[address] [place] [address] [address] Scan Report Signed Patient: Hang Osullivan#: [id number] : 1965Acct:[id number] Age/Sex: 59 / MADM Date: 09/24/24 Loc: HO.CT Attending Dr: Gudelia Ash PA-C Ordering Physician: Gudelia Ash PA-C Date of Service: 09/24/24 Procedure(s): CT lung screening Accession Number(s): [id number] cc: Gudelia Ash PA-C; Name,Chester HELMS Report Number: [id number]: Total DLP = 60.00 mGy-cm EXAMINATION: CT [...] for CT CHEST LOW DOSE CANCER SCREENING ([id number]) can be placed. Electronically signed by: Miguel Stratton MD 09/24/2024 11:47 AM EST Dictated By: Miguel Stratton MD Signed By: <Electronically signed by Miguel Stratton MD in OV> 09/24/24 1147 DD/ 1109 TD/TT: 09/24/24 1123 Risk Compliance Manager: Result [facility] External Provider IMG CT PROCEDURES Final Result * POCT urinalysis dipstick manually resulted (09/15/2024 2:23 PM EST) Pathologist [facility] Color, UA Yellow Clarity, UA Clear Glucose, UA Negative Bilirubin, UA Negative Ketones, UA Positive Comment:trace Spec Grav, UA 1.025 Blood, UA Negative Negative, None Detected pH, UA 6.5 Protein, UA Negative Urobilinogen, UA 0.2 Leukocytes, UA Negative Negative, Rare, Trace Nitrite, UA Negative Negative, None Detected Urine 09/15/2024 2:23 PM EST Afua Rivera [employer] POINT OF CARE TEST ENTER/EDIT OR DERABLES Final Result * (ABNORMAL) Comprehensive Metabolic Panel (09/15/2024 2:16 PM EST) Sodium 140 135 - 145 mmol/L [facility] Potassium 4.3 3.3 - 5.1 mmol/L [facility] Chloride 107 96 - 108 mmol/L [facility] Carbon Dioxide 25 22 - 29 mmol/L [facility] Anion Gap 12 12 - 20 [facility] Urea Nitrogen (BUN) 17(H) 9 - 16 mg/dL [facility] Creatinine, Serum 0.72 0.5 - 1.4 mg/dL [facility] Estimated Glomerular Filt Rate >60 [facility] Comment:Chronic Kidney Disea se: Estimated GFR < 60 mL/min/[id number] Kidney Disease: Estimated GFR < 15 mL/min/1.73m2 Glucose 130(H) 60 - 115 mg/dL [facility] Calcium 9.5 8.4 - 10.2 mg/dL [facility] Bilirubin, Total 0.3 0.0 - 1.0 mg/dL [facility] Aspartate Amino Transferase 27 5 - 37 U/L [facility] Alanine Aminotransferase 24 0 - 40 U/L [facility] Total Protein 7.7 6.5 - 8.0 g/dL [facility] Albumin Level 4.4 3.5 - 5.0 g/dL [facility] Alkaline Phosphatase 69 39 - 117 U/L [facility] Blood Venous blood specimen / Unknown 09/15/2024 2:16 PM EST 09/15/2024 4:04 PM EST us Afua Rivera NP LAB BLOOD ORDERABLES Final Resul t [facility] [address] [place] [phone] * Albumin, Random Urine W/Creatinine (05/01/2024 9:30 AM EDT) Creatinine, Urine 121.55 mg/dL [facility] Microalbumin Urine 8.0 mg/L [facility] Microalbum Creatinine Ratio Ur 6.5 <30 ug/mg cr [facility] Comment:Albumin/Creatinine R atio Reference Ranges: Normal: < 30 ug/mg creatinine Microalbuminuria: 30 - 300 ug/mg creatinineClinical Albuminuria: > 300 ug/mg creatinine Urine (Urine, Random) 05/01/2024 9:30 AM EDT 05/01/2024 11:17 AM EDT us Chester Raymond MD LAB URINE ORDERABLES Final Resul t Performing Organization Address [facility] Co de Phone Number [facility] [address] [place] [address] [phone] * (ABNORMAL) Lipid Panel, Standard (05/01/2024 9:27 AM EDT) Triglycerides 132 <150 mg/dL [facility] Comment:Desirable Triglyceri de: less than 150 mg/dLBorderline High Triglyceride 150-199 mg/dLHigh Triglyceride: 200-499 mg/dLVery High Triglyceride: greater than or equal to 5OO mg/dL Cholesterol 118 <200 mg/dL [facility] Comment:Desirable Cholestero l: less than 200 mg/dLBorderline High Cholesterol: 200-239 mg/dLHigh Cholesterol: greater than 239 mg/dL LDL Cholesterol Calculated 59 <100 mg/dL [facility] Comment:Desirable LDL: less than 100 mg/dLNear Optimal/Above Optimal LDL: 110- 129 mg/dLBorderline High LDL: 130-159 mg/dLHigh LDL: 160-189 mg/dLVery High LDL: greater than or equal to 190 mg/dL HDL Cholesterol 33(L) >40 mg/dL [facility] Comment:Desirable HDL: great er than 40 mg/dL Note: This HDL assay may give artificially low results in patients with liver disease. Blood Venous blood specimen / Unknown 05/01/2024 9:27 AM EDT 05/01/2024 11:04 AM EDT us Chester Raymond MD LAB BLOOD ORDERABLES Final Resul t Performing Organization Address [facility]/ZIP Co de Phone Number [facility] [address] [place] [phone] [phone] * HIV-1/2 Antigen and Antibodies, Fourth Generation, with Reflexes (10/16/2023 10:29 AM EDT) HIV AB/AG Nonreactive Nonreactive [facility] Comment:HIV-1 p24 Ag and/or HIV-1/HIV-2 Ab not detected.A test result that is nonreactive does not exclude thepossibility of exposure to or infection with HIV-1 and/orHIV-2. Nonreactive results in this assay for individualswith prior exposure to HIV-1 and/or HIV-2 may be due toantigen and antibody levels that are below the limit ofdetection of this assay.The DediServeniiCurrent HIV Ag/Ab Combo assay result andsupplemental assay results should be interpreted inconjunction with the patient's clinical presentation,history and other laboratory results. If the results areinconsistent with clinical evidence, additional testing issuggested to confirm the result. Blood Venous blood specimen / Unknown 10/16/2023 10:29 AM EDT 10/16/2023 11:11 AM EDT Chester Raymond MD LAB BLOOD ORDERABLES Final Resul t [facility] [address] [place] [phone] * (ABNORMAL) Colonoscopy (09/26/2023) Colonoscopy Abnormal Normal, Abnormal, BIRADS 0 , BIRADS 1 , BIRADS 2, BIRADS 3 , BIRADS 4+ Historical Provider HEALTH MAINTENANCE Final Result * HEPATITIS C AB W/REFL TO HCV RNA, QN, PCR (11/09/2020 8:16 AM EDT) HEPATITIS C ANTIBODY NON-REACT [facility] NON-REACT [facility] INDEX 0.01 <1.00 [facility] Comment: ?? HCV antibody was non-reactive. There is no laboratory ?? evidence of HCV infection. ?? In most cases, no further action is required. However, if recent HCV exposure is suspected, a test for HCV RNA (test code 14338) is suggested. ?? For additional information please refer to http://education.Phantom/faq/VGE00s6 (This link is being provided for informational/ educational purposes only.) ?? 11/09/2020 8:16 AM EDT us Historical Provider HISTORICAL/NON ORDERABLE LABS Final Result [facility] [address] from Last 3 Months or Most Recently Relevant to Health Maintenance Insurance [facility] C[facility] MEDICAID STAND ADULT Care Teams Benefits Administrator Relationship Specialty Start Date End Date Name, MD Chester [address] [place] [address] PCP - General Family Medicine 03/17/21
--- OUTSIDE RECORDS SUMMARY | 2024-11-12 10:49 | XMS_ITS | Encounter Summary ---
Author Organization [employer] Address [address] [facility] [address] [place] [address] Care Team Providers Care Checkerer Hand Name Role Phone Name, Henri HELMS Primary Care Provider [phone] Encounter Details Date Type Department Care Team (Latest Contact Info) Description 11/11/2024 Travel Social History Tobacco Use Types Packs/Day [...] Description 03/12/2025 1:00 PM EDT Office Visit [facility] [address] [place] [address] Michael, Rabia [address] [place] [address] documented as of this encounter Visit Diagnoses Not on filedocumented in this encounter Additional Health Concerns Assessment Noted Time PHQ-9 Depression Total Score: 2 11/12/19 25 10:18 AM EDT documented as of this encounter Care Teams Checkerer Hand Relationship Specialty Start Date End Date Name, MD Henri [address] [place] [address] PCP - General Family Medicine 03/17/21 documented as of this encounter
--- OUTSIDE RECORDS SUMMARY | 2024-11-12 10:49 | XMS_ITS | Patient Health Record ---
Author Organization [facility] Address [facility] [address] [place] [address] Care Team Providers Care Windows Systems Administrator Name Role Phone MATT HINES Primary Care Provider Allergies No Known Allergies Results Component Value Reference Range Notes BMP Reviewed date:09/02/2024 05:35:00 AM Interpretation: Performing Lab: Notes/Report: LICENSE.: [id number] CLIA: [id number] DIRECTOR: LINSEY LANGLEY Num: [id number] NIFS Exp: 09/25/2024 [place] [address] G4 15-29 G5 <15 Paid 5 Cents [facility] [address] [place] 156 G3a 45-59 G3b 30-44 Pat. No.: [id number] [facility] de [facility] en [place] G1 >=90 G2 60-89 Col. Rachael. Med. P.R. ORDER [id number] PERFORMED AT: CKD STAGES: BY VITROS 250 BASIC METABOLIC PANEL GLUCOSE 104.00 74-99 MG/DL NA 140.00 136-145 [...] Notes/Report: CBC Col. Rachael. Med. P.R. ORDER [id number] PERFORMED AT: Pat. No.: [id number] [facility] de [facility] [place] Paid 5 Cents [facility] [address] 156 Exp: 09/25/2024 [place] [address] Num: [id number] DIRECTOR: LINSEY LANGLEY LICENSE.: [id number] CLIA: [id number] WHITE BLOOD COUNT 9.3 4-11 X10 RED [...] BY: DxH 560 RBC MORPHOLOGY 1 NIFS Reason For Referral No Information Medications Medication SIG (Take, Route, Fr equency, Duration) Notes Start Date End Date Status Bristow 3 Active Tamsulosin HCl Activ e Atorvastatin Calcium Active metFORMIN HCl Active Aspirin 81 Active Lisinopril Active Vital Signs Heart Rate 75 /min 08/27/2024 DAVID BARRERA RN , BSN Lic.[id number], [facility] 08/28/2024 01:35:45 AM >escala de dolor 0 Temperature 36.8 C 08/27/2024 DAVID BARRERA RN , BSN Lic.[id number], [facility] 08/28/2024 01:35:45 AM >[place] de [place] 0 Respiratory Rate 19 /min 08/27/2024 DAVID Ji RN, BSN Lic.[id number], [facility] 08/28/2024 01:35:45 AM >[place]cal[place] de dol[place] 0 Height-cm 187.96 cm 08/27/2024 DAVID COLON RN , BSN Lic.[id number], [facility] 08/28/2024 01:35:45 AM >escala de dol[place] 0 Oximetry 99 % 08/27/2024 DAVID COLON RN , BSN Lic.[id number], [facility] 08/28/2024 01:35:45 AM >escala de dol[place] 0 Blood pressure diastolic 74 mm Hg 08/27/2024 SANTOS TOS COLON RN, BSN Lic.[id number], [facility] 08/28/2024 01:35:45 AM >escala de dolor 0 Weight-kg 97.52 kg 08/27/2024 DAVID COLON RN , BSN Lic.[id number], [facility] 08/28/2024 01:35:45 AM >escala de dolor 0 Height 74 in 08/27/2024 DAVID COLON RN , BSN Lic.[id number], [facility] 08/28/2024 01:35:45 AM >escala de dolor 0 Blood pressure systolic 120 mm Hg 08/27/2024 XENA OS COLON RN, BSN Lic.[id number], [facility] 08/28/2024 01:35:45 AM >escala de dolor 0 Weight 215 lbs 08/27/2024 DAVID COLON RN , BSN Lic.[id number], [facility] 08/28/2024 01:35:45 AM >[place]cala de dol[place] 0 BMI 27.6 kg/m2 08/27/2024 DAVID COLON RN , BSN Lic.[id number], [facility] 08/28/2024 01:35:45 AM >escala de dolor 0 Encounters Encounter Location Date Provider Diagnosis [address] [address] [place] [place] [id number] 08/27/2024 MATT HUANG Acute bilateral low back pain, unspecified whether sciatica present M54.50 Assessments Encounter Date Diagnosis (ICD Code) Assessment Notes Treatment Notes Treatment Clinical Notes Section Notes 08/27/2024 Acute bilateral low back pain, unspecified whether sciatica present (ICD-10 - M54.50) Toradol 60 mg IM Decadron 8 mg IM Norflex 100 mg PO MATT HINES 08/27/2024 08:43:16 PM > 0.9% NSS 1000 ml 150 ml/hr CRAIG MATT HUANG 08/27/2024 10:30:31 PM > CRAIG MATT HUANG 08/27/2024 08:41:56 PM > 08/27/2024 Other JERRY ENG RN, BSN Lic. [id number], [place] 08/27/2024 08:52:23 PM > Se recibe [...] notificar cambios, refiere entender. JERRY ENG RN, ERNA Lic. [id number], [place] 08/27/2024 08:52:23 PM > ERAN GILMAN RN Lic. [id number], [place] 08/27/2024 10:33:28 PM > Paciente es [...] en observacion. JERRY ENG RN, BSN Lic. [id number], [place] 08/27/2024 10:33:28 PM > DAVID BARRERA RN, BSN Lic.[id number], [facility] 08/28/2024 01:35:13 AM > Paciente es dado de taty en condicion estable, alerta y orientado en tiempo, lugar y persona. Se educa sobre instrucciones medicas, tratamiento a seguir en el hogar, seguimiento con medico primario, y a pasar con el personal de servicio al paciente para completar proceso de taty, refiere entender. Vitales medidos y documentados previos al taty. Paciente refiere escala de dolor en 0/10 al momento del taty. DAVID BARRERA RN, [place] Lic.[id number], [facility] 08/28/2024 01:35:21 AM > MATT HINES 08/27/2024 08:41:56 PM > Plan Of Treatment No Information Medical (General) History Medical History History ICD Code Enfisema pulmonar Granulomas en rinones Hipertension Diabetes
--- OUTSIDE RECORDS SUMMARY | 2024-11-12 10:50 | XMS_ITS | Encounter Summary ---
Author Organization [employer] Address [address] [facility] [address] [place] [address] Care Team Providers Care Hvac Sheet Metal Installer Name Role Phone Name, Henri HELMS Primary Care Provider Reason for Visit * Reason Comments Med Refill Encounter Details Date Type Department Care Team ([facility] st Contact Info) Description 09/03/2024 Refill [facility] MEDICINE [address] [place], [place] [id number] Name, MD Henri [address] [place] [address] Social History Tobacco Use Types Packs/Day Years [...] Description 03/12/2025 1:00 PM EDT Office Visit [facility] ADULT DENTAL [address] [place] [address] Michael, Rabia [address] [place] [address] documented as of this encounter Visit Diagnoses Not on filedocumented in this encounter Additional Health Concerns Assessment Noted Time PHQ-9 Depression Total Score: 0 03/20/20 9:55 AM EDT documented as of this encounter Care Teams Hvac Sheet Metal Installer Relationship Specialty Start Date End Date Name, MD Henri [address] [place] [address] PCP - General Family Medicine 03/17/21 documented as of this encounter
[2024-11-12 12:01] LABS: Prostate Specific Antigen 0.47 ng/mL (<0.05-4.0)
[2024-11-12 12:14] LABS: Anion Gap 11 (12-20); Blood Urea Nitrogen 14 mg/dL (9-16); Calcium 9.7 mg/dL (8.4-10.2); Carbon Dioxide 28 mmol/L (22-29); Chloride 104 mmol/L (96-108); Estimated Glomerular Filt Rate > 60; Glucose Random 224 mg/dL (60-115); Potassium 4.2 mmol/L (3.3-5.1); Sodium 139 mmol/L (135-145)
== END 2024-11-12 09:29 | disposition home or self-care (01) ==
LOC: HO.HHCL 09:28
PROVIDERS: Visit Provider Internal Medicine Geriatric Medicine
DX: E11.9 Type 2 diabetes mellitus without complications (principal); I10 Essential (primary) hypertension; N40.1 Benign prostatic hyperplasia with lower urinary tract symptoms; R35.0 Frequency of micturition
CPT/HCPCS: 36415; 80048; 84153